=== PATIENT | male | born 1945 | race Caucasian/White ===

== ENCOUNTER 2019-03-03 15:47 | Inpatient (IN) | payer MEDICARE, OTHER ==
[2019-03-03] MEDS ORDERED: Sodium Chloride 0.9% 10 ML Syringe FLUSH PRN (16:59)
[2019-03-03] MEDS ORDERED: Furosemide 40 MG/4 ML VIAL IVPUSH ONE (16:59)
--- NOTE | 2019-03-03 17:01 | EDM.PDOC ---
ED HPI GENERAL MEDICAL PROBLEM - General Chief Complaint: Respiratory Problem Stated Complaint: SOB Time Seen by Provider: 03/03/19 16:55 Source of Information: Reports: Patient History Limitations: Reports: No Limitations - History of Present Illness INITIAL COMMENTS - FREE TEXT/NARRATIVE: 73-year-old male presents to the ED with gradually worsening dyspnea over a period of about a week. He was up all night last night sitting up due to orthopnea. He does have a cough but states he's not bringing up much phlegm. Denies any hemoptysis. Appetite is poor. States his bowels are working okay. States he is voiding frequently. His med list does not include any diuretics. She does chronic atrial fib and is on Xarelto and bruises very easily. He states he can lie down didn't orthopnea. Patient has COPD and is on oxygen usually 2-2.5 L at all times. He thinks he said fluid buildup around his lungs before. Legs of become very swollen and painful over the last week. Case they' re weeping in certain places on his legs. He reports that he's had the chills last night. He didn't know that he has a fever. Onset: Gradual Onset Date: 02/24/19 Duration: Day(s): (Veronica worsening dyspnea over the last week as well is gradually worsening edema in his lower extremities.), Constant, Getting Worse Location: Reports: Chest (Increased shortness of breath on minimal exertion.), Lower Extremity, Left (Creasing redness dorsal left foot with increased pain. He 's been wearing slip on shoes. She can barely walk.), Lower Extremity, Right ( [place] and pain both lower extremities) Quality: Reports: Other (Severe dyspnea on minimal exertion. Orthopnea.) Severity: Severe Improves with: Reports: Rest Worsens with: Reports: Other, Movement (Short of breath even at rest.) Context: Denies: Activity, Exercise (Any movement or walking makes things much worse.), Lifting, Sick Contact, Trauma, Other Associated Symptoms: Reports: Cough, Loss of Appetite, Malaise, Shortness of Breath, Weakness. 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: Reports: Other (see below) - Related Data Allergies Allergy/AdvReac Type Severity Reaction Status Date / Time diclofenac Allergy Cannot Verified 03/03/19 16:11 Remember lovastatin Allergy Cannot Verified 03/03/19 16:11 Remember potassium Allergy Cannot Verified 03/03/19 16:11 Remember tramadol Allergy Cannot Verified 03/03/19 16:11 Remember Home Meds: Home Meds Acetaminophen [Mapap] 1,000 mg PO TID PRN 03/03/19 [History] Acetaminophen [Tylenol Extra Strength] 500 mg PO TID 03/03/19 [History] Ipratropium/Albuterol Sulfate [Iprat-Albut 0.5-3(2.5) mg/3 ml] 3 ml IH Q6H PRN 03/03/19 [History] Levothyroxine 25 mcg PO ACBREAKFAST 03/03/19 [History] Melatonin 6 mg PO DAILY 03/03/19 [History] Metoprolol Tartrate 12.5 mg PO BID 03/03/19 [History] Nicotine [Nicotine Patch] 1 each TD Q72H 03/03/19 [History] Rivaroxaban [Xarelto] 20 mg PO DAILY 03/03/19 [History] Sennosides [Senna] 8.6 mg PO BID 03/03/19 [History] Triamcinolone Acetonide [Triamcinolone Acetonide 0.1% Crm] 1 applic TOP DAILY [History] Past Medical History Cardiovascular History: Reports: Heart Failure, Hypertension Respiratory History: Reports: COPD Endocrine/Metabolic History: Reports: Diabetes, Type II Social & Family History - Living Situation & Occupation Living situation: Reports: Occupation: Retired ED [employer] - Review of Systems Review Of Systems: See Below Constitutional: Reports: Chills, Malaise, Weakness, Fatigue, Decreased Appetite , Weight Loss HEENT: Reports: Glasses, Hearing Loss Respiratory: Reports: Shortness of Breath, Cough. Denies: Pleuritic Chest Pain , Sputum, Hemoptysis (Nonproductive) Cardiovascular: Reports: Blood Pressure Problem, Dyspnea on Exertion ( States areas of opened up and her losing.), Edema (Severe in getting worse in his lower extremities the last week or so.), Lightheadedness, Orthopnea. Denies: Chest Pain, Claudication (Mild hypertension) Endocrine: Reports: Fatigue ( chronically but much worse the last week. ), High Glucose (He is a type II diabetic and is on medication for diabetes.) GI/Abdominal: Reports: Decreased Appetite. Denies: Abdominal Pain, Difficulty Swallowing, Hematemesis, Hematochezia, Melena, Stool Incontinence, Vomiting, Other : Reports: Frequency, Incontinence Musculoskeletal: Reports: Back Pain, Joint Pain (Knees hips neck and shoulders.) Skin: Reports: Bruising (Bruises easily and has multiple bruises on both hands and extremities particularly his upper extremities. 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 He states his skin is peeling off of both of his legs as well since his feet have been so swollen) Neurological: Reports: No Symptoms Psychiatric: Reports: No Symptoms Hematologic/Lymphatic: Reports: No Symptoms Immunologic: Reports: No Symptoms ED EXAM, GENERAL - Physical Exam Exam: See Below Exam Limited By: Respiratory Distress (Moderate inspiratory distress.) General Appearance: Alert, Moderate Distress, Other (Vitals showed temperature 37.2 but he feels much warmer than this. Pulse is 90 and irregular compatible with atrial fibrillation respiratory dystonia 9-34 per minute. Sats are 78% on room air and 87-90% on 4 L. EP is 153/70 but came down to 146/89.) Eye Exam: Bilateral Eye: Normal Inspection (Slight pallor of the bronchial margins.) Throat/Mouth: Normal Inspection, Normal Oropharynx, Other. No: Normal Teeth Head: Atraumatic, Normocephalic Neck: Normal Inspection (Tongue is mildly dry.), Supple, Limited Range of Motion , Other. No: Non-Tender, Full Range of Motion, Carotid Bruit, Lymphadenopathy ( L), Lymphadenopathy (R) Respiratory/Chest: Respiratory Distress (Marked tachypnea at rest.), Decreased Breath Sounds (Both bases and in the lower 20% of lung sawant bilaterally), Rales, Accessory Muscle Use. No: Lungs Clear, Normal Breath Sounds ( decreased breath sounds in the lower 20% of lung sawant bilaterally.), Chest Non-Tender Cardiovascular: No Gallop, No JVD, No Murmur, No Rub, Irregularly Irregular. No : Normal Peripheral Pulses (Mild accessory muscle use.), Regular Rate, Rhythm, No Edema (Heart rate is irregularly irregular component with a defibrillation.) Peripheral Pulses: 0: Posterior Tibial (L) (No pulses are palpable in his lower extremities due to severe edema up to the knees bilaterally.), Posterior Tibial (R), Dorsalis Pedis (L), Dorsalis Pedis (R) GI/Abdominal: No Organomegaly, Distended (Stented and tympanitic in the upper abdomen compatible with aerophagia.), Abnormal Bowel Sounds (Bowel sounds are hyperactive in all 4 quadrants). No: Guarding, Rigid, Rebound, Tender (Male) Exam: Other (Size male. There is no significant swelling of the penis or scrotum. Does have intertrigo in the inguinal folds bilaterally due to candidiasis worse on the left as compared to the right.) Back Exam: Other (Mild kyphosis thoracic spine.). No: CVA Tenderness (L), CVA Tenderness (R) Extremities: Pedal Edema (4+ pitting edema bilaterally.), Joint Swelling (Mild fluid in the knee.), Other (Marked erythema of the right anterior fiore and dorsal foot worse on the left side as compared to the right. Both are very tender to touch. Appears to have an active cellulitis developing in the left dorsal foot.). No: Normal Range of Motion, Non-Tender Neurological: Alert, Oriented, CN II-XII Intact, Normal Cognition. No: Normal Gait Psychiatric: Other Skin Exam: Warm (He is very short of breath.), Dry, Normal Color, Other ( Eczematous rash both upper shoulders. Peeling skin from the upper right lateral thigh and both legs.) EKG INTERPRETATION EKG Date: 03/03/19 Time: 17:02 Rhythm: A-Fib (With rate of 56-1 10/m) Rate (Beats/Min): 76 [place]: RAD-Right [place] Deviation (237.) P-Wave: Present QRS: Other (Mildly decreased voltage limb and precordial leads. Sitter right ventricular hypertrophy pattern with delayed R-wave progression.) ST-T: Other (Nonspecific T-wave flattening in aVL) QT: Normal EKG Interpretation Comments: Abnormal ECG Course - Vital Signs Last Recorded V/S: Last Vital Signs Temp 36.9 C 03/03/19 17:10 Pulse 90 03/03/19 16:06 Resp 29 H 03/03/19 16:06 BP 153/70 H 03/03/19 16:06 Pulse Ox 78 L 03/03/19 16:06 - Orders/Labs/Meds Orders: Active Orders 24 hr Category Date Time Status Antiembolic Devices [RC] PER UNIT ROUTINE Care 03/03/19 19:06 Active Blood Glucose Check, Bedside [RC] ONETIME Care 03/03/19 16:57 Active Blood Glucose Check, Bedside [RC] QIDACANDBED Care 03/03/19 19:10 Active EKG Documentation Completion [RC] STAT Care 03/03/19 16:56 Active Height and Weight [RC] DAILY Care 03/03/19 19:04 Active Intake and Output [RC] QSHIFT Care 03/03/19 19:05 Active Oxygen Therapy [RC] ASDIRECTED Care 03/03/19 16:57 Active Oxygen Therapy [RC] PRN Care 03/03/19 19:05 Active Peripheral IV Care [RC] . DIRECTED Care 03/03/19 16:59 Active RT Aerosol Therapy [RC] ASDIRECTED Care 03/03/19 19:06 Active Up ad Iris [RC] ASDIRECTED Care 03/03/19 19:04 Active VTE/DVT Education [RC] PER UNIT ROUTINE Care 03/03/19 19:05 Active Vital Signs [RC] Q4H Care 03/03/19 19:05 Active Consult to Case Management/Sales Communications Manager [CONS] Cons 03/03/19 19:04 Active Routine Consult to Spiritual Care [CONS] Routine Cons 03/03/19 19:04 Active OT Evaluation and Treatment [CONS] Routine Cons 03/03/19 19:04 Active PT Evaluation and Treatment [CONS] Routine Cons 03/03/19 19:04 Active Respiratory Care Assess and Treatment [CONS] Routine Cons 03/03/19 19:04 Active 2 Gram Sodium Diet [DIET] Diet 03/03/19 Dinner Active Consistent Carbohydrate Diet [DIET] Diet 03/03/19 Dinner Active Fluid Restriction [DIET] Diet 03/04/19 Breakfast Active Heart Healthy Diet [DIET] Diet 03/03/19 Dinner Active Chest 1V Frontal [CR] Stat Exams 03/03/19 16:56 Taken Echo Comp wo Cont [US] Routine Exams 03/04/19 07:00 Ordered BASIC METABOLIC PANEL,BMP [CHEM] AM Lab 03/04/19 05:11 Ordered BASIC METABOLIC PANEL,BMP [CHEM] AM Lab 03/05/19 05:11 Ordered BASIC METABOLIC PANEL,BMP [CHEM] AM Lab 03/06/19 05:11 Ordered BASIC METABOLIC PANEL,BMP [CHEM] AM Lab 03/07/19 05:11 Ordered BASIC METABOLIC PANEL,BMP [CHEM] AM Lab 03/08/19 05:11 Ordered C-REACTIVE PROTEIN [CHEM] AM Lab 03/04/19 05:11 Ordered CBC WITH AUTO DIFF [HEME] AM Lab 03/04/19 05:11 Ordered CBC WITH AUTO DIFF [HEME] AM Lab 03/05/19 05:11 Ordered CBC WITH AUTO DIFF [HEME] AM Lab 03/06/19 05:11 Ordered CBC WITH AUTO DIFF [HEME] AM Lab 03/07/19 05:11 Ordered CBC WITH AUTO DIFF [HEME] AM Lab 03/08/19 05:11 Ordered CULTURE BLOOD [BC] Stat Lab 03/03/19 16:57 Ordered CULTURE BLOOD [BC] Stat Lab 03/03/19 18:17 Received MAGNESIUM [CHEM] AM Lab 03/04/19 05:11 Ordered MAGNESIUM [CHEM] AM Lab 03/05/19 05:11 Ordered MAGNESIUM [CHEM] AM Lab 03/06/19 05:11 Ordered MAGNESIUM [CHEM] AM Lab 03/07/19 05:11 Ordered MAGNESIUM [CHEM] AM Lab 03/08/19 05:11 Ordered Acetaminophen Med 03/03/19 19:09 Pending 1,000 mg PO TID PRN Acetaminophen [Tylenol] Med 03/03/19 21:00 Active 650 mg PO TID Acetaminophen/HYDROcodone [[place] 325-5 MG] Med 03/03/19 19:04 Active 1 tab PO Q4H PRN Albuterol/Ipratropium [DuoNeb 3.0-0.5 MG/3 ML] Med 03/03/19 19:04 Ordered 3 ml NEB Q4H PRN Albuterol/Ipratropium [DuoNeb 3.0-0.5 MG/3 ML] Med 03/03/19 19:09 Active 3 ml NEB Q6H PRN Bisacodyl [Dulcolax] Med 03/03/19 19:04 Active 5 mg PO DAILY PRN Dextrose 50% in Water Med 03/03/19 19:10 Active 50 ml IVPUSH ASDIRECTED PRN Docusate Sodium [Colace] Med 03/03/19 19:04 Active 100 mg PO BID PRN Docusate Sodium/Sennosides [Senna Plus] Med 03/03/19 19:04 Active 1 tab PO BID PRN HYDROmorphone [Dilaudid] Med 03/03/19 19:04 Active 0.5 mg IVPUSH Q2H PRN Insulin Lispro [HumaLOG] Med 03/03/19 19:10 Active See Protocol SUBCUT QIDACANDBED PRN LORazepam [Ativan] Med 03/03/19 19:04 Active 0.25 mg IV Q6H PRN Levothyroxine Med 03/04/19 06:00 Active 25 mcg PO ACBREAKFAST Melatonin Med 03/04/19 09:00 Pending 6 mg PO DAILY Metoprolol Tartrate [Lopressor] Med 03/03/19 21:00 Active 12.5 mg PO BID Nicotine [Habitrol] Med 03/03/19 19:15 Pending DOSE mg TRDERM Q72H Ondansetron [Zofran] Med 03/03/19 19:04 Active 4 mg IV Q6H PRN Pantoprazole [ProTONIX IV] Med 03/03/19 21:00 Active 40 mg IV Q12HR Promethazine [Phenergan] 6.25 mg Med 03/03/19 19:04 Active Sodium Chloride 0.9% [Normal Saline] 50 ml IV Q6H Rivaroxaban [Xarelto] Med 03/04/19 09:00 Active 20 mg PO DAILY Sennosides [Senna] Med 03/03/19 21:00 Active 8.6 mg PO BID Sodium Chloride 0.9% [Saline Flush] Med 03/03/19 16:59 Active 10 ml FLUSH ASDIRECTED PRN Triamcinolone Acetonide [Triamcinolone Acetonide 0.1% Med 03/04/19 09:00 Active Crm] 0 gm TOP DAILY Zolpidem [Ambien] Med 03/03/19 19:04 Active 5 mg PO BEDTIME PRN Antiembolic Hose [OM.PC] Per Unit Routine Oth 03/03/19 19:05 Ordered Blood Culture x2 Reflex Set [OM.PC] Stat Oth 03/03/19 16:57 Ordered Peripheral IV Insertion Adult [OM.PC] Stat Oth 03/03/19 16:59 Ordered Sequential Compression Device [OM.PC] Per Unit Routine Oth 03/03/19 19:05 Ordered Medication Orders Acetaminophen (Tylenol) 650 mg PO TID [facility] Hydrocodone Bitart/Acetaminophen ([place] 325-5 Mg) 1 tab PO Q4H PRN PRN Reason: Pain (moderate 4-6) Albuterol/Ipratropium (Duoneb 3.0-0.5 Mg/3 Ml) 3 ml NEB Q4H PRN PRN Reason: Shortness Of Breath/wheezing Albuterol/Ipratropium (Duoneb 3.0-0.5 Mg/3 Ml) 3 ml NEB Q6H PRN PRN Reason: Dyspnea Bisacodyl (Dulcolax) 5 mg PO DAILY PRN PRN Reason: Constipation Dextrose/Water (Dextrose 50% In Water) 50 ml IVPUSH ASDIRECTED PRN PRN Reason: Hypoglycemia Docusate Sodium (Colace) 100 mg PO BID PRN PRN Reason: Constipation Hydromorphone HCl (Dilaudid) 0.5 mg IVPUSH Q2H PRN PRN Reason: Pain (severe 7-10) Promethazine HCl 6.25 mg/ (Sodium Chloride) 50.25 mls @ 100 mls/hr IV Q6H PRN PRN Reason: Nausea/Vomiting Insulin Human Lispro (Humalog) 0 unit SUBCUT QIDACANDBED PRN; Protocol PRN Reason: Hyperglycemia Levothyroxine Sodium (Levothyroxine) 25 mcg PO ACBREAKFAST [facility] Lorazepam (Ativan) 0.25 mg IV Q6H PRN PRN Reason: Anxiety Melatonin (Melatonin) 6 mg PO DAILY [facility] Metoprolol Tartrate (Lopressor) 12.5 mg PO BID [facility] Nicotine (Habitrol) mg TRDERM Q72H [facility] Non-Formulary Medication (Acetaminophen) 1,000 mg PO TID PRN PRN Reason: Pain Ondansetron HCl (Zofran) 4 mg IV Q6H PRN PRN Reason: Nausea/Vomiting Pantoprazole Sodium (Protonix Iv) 40 mg IV Q12HR [facility] Rivaroxaban (Xarelto) 20 mg PO DAILY [facility] Senna (Senna) 8.6 mg PO BID [facility] Senna/Docusate Sodium (Senna Plus) 1 tab PO BID PRN PRN Reason: Constipation Sodium Chloride (Saline Flush) 10 ml FLUSH ASDIRECTED PRN PRN Reason: Keep Vein Open Last Admin: 03/03/19 17:04 Dose: 10 ml Triamcinolone Acetonide (Triamcinolone Acetonide 0.1% Crm) 0 gm TOP DAILY JOANNA Zolpidem Tartrate (Ambien) 5 mg PO BEDTIME PRN PRN Reason: Sleep Labs: Laboratory Tests 03/03/19 03/03/19 03/03/19 Range/Units 16:25 16:25 16:25 WBC 8.33 (4.23-9.07) K/mm3 RBC 2.99 L (4.63-6.08) M/mm3 Hgb 8.0 L (13.7-17.5) gm/L Hct 27.5 L (40.1-51.0) % MCV 92.0 (79.0-92.2) fl MCH 26.8 (25.7-32.2) pg MCHC 29.1 L (32.2-35.5) g/dl RDW Std Deviation 57.0 H (35.1-43.9) fL Plt Count 292 (163-337) K/mm3 MPV 9.3 L (9.4-12.3) fl Neutrophils % (Manual) 60 (40-60) % Band Neutrophils % 0 (0-10) % Lymphocytes % (Manual) 27 (20-40) % Atypical Lymphs % 0 % Monocytes % (Manual) 11 H (2-10) % Eosinophils % (Manual) 1 (0.8-7.0) % Basophils % (Manual) 1 (0.2-1.2) Platelet Estimate Adequate RBC Morph Comment Normal PT 11.9 (9.7-12.0) SECONDS INR 1.10 APTT 35 H (22-31) SECONDS Puncture Site ABG pH (7.35-7.45) ABG pCO2 (35.0-45.0) mmHg ABG pO2 (80.0-100.0) mmHg ABG HCO3 (22.0-26.0) meq/L ABG O2 Saturation (96.0-97.0) % ABG Base Excess (-2-2.0) Gibran Test A-a Gradient mmHg O2 Delivery Device Oxygen Flow Rate FiO2 (21.00-100.00) % Sodium 139 (136-145) mEq/L Potassium 4.4 (3.5-5.1) mEq/L Chloride 101 (98-107) mEq/L Carbon Dioxide 30 (21-32) mEq/L Anion Gap 12.4 (5-15) BUN 20 H (7-18) mg/dL Creatinine 1.0 (0.7-1.3) mg/dL Est Cr Clr Drug Dosing 70.06 mL/min Estimated GFR (MDRD) > 60 (>60) mL/min BUN/Creatinine Ratio 20.0 H (14-18) Glucose 119 H (83-115) mg/dL POC Glucose (83-110) mg/dL Calcium 8.8 (8.5-10.1) mg/dL Magnesium 1.6 L (1.8-2.4) mg/dl Total Bilirubin 0.7 (0.2-1.0) mg/dL AST 21 (15-37) U/L ALT 36 (16-63) U/L Alkaline Phosphatase 139 H (46-116) U/L CK-MB (CK-2) 1.7 (0-3.6) ng/ml Troponin I < 0.017 (0.00-0.056) ng/mL C-Reactive Protein 5.3 H* (<1.0) mg/dL NT-Pro-B Natriuret Pep (0-450) pg/mL Total Protein 7.5 (6.4-8.2) g/dl Albumin 2.6 L (3.4-5.0) g/dl Globulin 4.9 gm/dL Albumin/Globulin Ratio 0.5 L (1-2) 03/03/19 03/03/19 03/03/19 Range/Units 16:25 17:16 17:33 WBC (4.23-9.07) K/mm3 RBC (4.63-6.08) M/mm3 Hgb (13.7-17.5) gm/L Hct (40.1-51.0) % MCV (79.0-92.2) fl MCH (25.7-32.2) pg MCHC (32.2-35.5) g/dl RDW Std Deviation (35.1-43.9) fL Plt Count (163-337) K/mm3 MPV (9.4-12.3) fl Neutrophils % (Manual) (40-60) % Band Neutrophils % (0-10) % Lymphocytes % (Manual) (20-40) % Atypical Lymphs % % Monocytes % (Manual) (2-10) % Eosinophils % (Manual) (0.8-7.0) % Basophils % (Manual) (0.2-1.2) Platelet Estimate RBC Morph Comment PT (9.7-12.0) SECONDS INR APTT (22-31) SECONDS Puncture Site Rt radial ABG pH 7.43 (7.35-7.45) ABG pCO2 41.8 (35.0-45.0) mmHg ABG pO2 58.0 L (80.0-100.0) mmHg ABG HCO3 27.2 H (22.0-26.0) meq/L ABG O2 Saturation 90.8 L (96.0-97.0) % ABG Base Excess 3.1 H (-2-2.0) Gibran Test Positive A-a Gradient 133 mmHg O2 Delivery Device Nasal cannula Oxygen Flow Rate 3.5 FiO2 34.00 (21.00-100.00) % Sodium (136-145) mEq/L Potassium (3.5-5.1) mEq/L Chloride (98-107) mEq/L Carbon Dioxide (21-32) mEq/L Anion Gap (5-15) BUN (7-18) mg/dL Creatinine (0.7-1.3) mg/dL Est Cr Clr Drug Dosing mL/min Estimated GFR (MDRD) (>60) mL/min BUN/Creatinine Ratio (14-18) Glucose (83-115) mg/dL POC Glucose 131 H (83-110) mg/dL Calcium (8.5-10.1) mg/dL Magnesium (1.8-2.4) mg/dl Total Bilirubin (0.2-1.0) mg/dL AST (15-37) U/L ALT (16-63) U/L Alkaline Phosphatase (46-116) U/L CK-MB (CK-2) (0-3.6) ng/ml Troponin I (0.00-0.056) ng/mL C-Reactive Protein (<1.0) mg/dL NT-Pro-B Natriuret Pep 8345 H (0-450) pg/mL Total Protein (6.4-8.2) g/dl Albumin (3.4-5.0) g/dl Globulin gm/dL Albumin/Globulin Ratio (1-2) Meds: Medications Generic Name Dose Route Start Last Admin Trade Name Freq PRN Reason Stop Dose Admin Acetaminophen 650 mg 03/03/19 21:00 Tylenol PO TID JOANNA Hydrocodone Bitart/Acetaminophen 1 tab 03/03/19 19:04 [place] 325-5 Mg PO Q4H PRN Pain (moderate 4-6) Albuterol/Ipratropium 3 ml 03/03/19 19:04 Duoneb 3.0-0.5 Mg/3 Ml NEB Q4H PRN Shortness Of Breath/wheezing Albuterol/Ipratropium 3 ml 03/03/19 19:09 Duoneb 3.0-0.5 Mg/3 Ml NEB Q6H PRN Dyspnea Bisacodyl 5 mg 03/03/19 19:04 Dulcolax PO DAILY PRN Constipation Dextrose/Water 50 ml 03/03/19 19:10 Dextrose 50% In Water IVPUSH ASDIRECTED PRN Hypoglycemia Docusate Sodium 100 mg 03/03/19 19:04 Colace PO BID PRN Constipation Hydromorphone HCl 0.5 mg 03/03/19 19:04 Dilaudid IVPUSH Q2H PRN Pain (severe 7-10) Promethazine HCl 6.25 mg/ 50.25 mls @ 100 mls/hr 03/03/19 19:04 Sodium Chloride IV Q6H PRN Nausea/Vomiting Insulin Human Lispro 0 unit 03/03/19 19:10 Humalog SUBCUT QIDACANDBED PRN Hyperglycemia Protocol Levothyroxine Sodium 25 mcg 03/04/19 06:00 Levothyroxine PO ACBREAKFAST JOANNA Lorazepam 0.25 mg 03/03/19 19:04 Ativan IV Q6H PRN Anxiety Melatonin 6 mg 03/04/19 09:00 Melatonin PO DAILY JOANNA Metoprolol Tartrate 12.5 mg 03/03/19 21:00 Lopressor PO BID JOANNA Nicotine mg 03/03/19 19:15 Habitrol TRDERM Q72H JOANNA Non-Formulary Medication 1,000 mg 03/03/19 19:09 Acetaminophen PO TID PRN Pain Ondansetron HCl 4 mg 03/03/19 19:04 Zofran IV Q6H PRN Nausea/Vomiting Pantoprazole Sodium 40 mg 03/03/19 21:00 Protonix Iv IV Q12HR [facility] Rivaroxaban 20 mg 03/04/19 09:00 Xarelto PO DAILY [facility] Senna 8.6 mg 03/03/19 21:00 Senna PO BID [facility] Senna/Docusate Sodium 1 tab 03/03/19 19:04 Senna Plus PO BID PRN Constipation Sodium Chloride 10 ml 03/03/19 16:59 03/03/19 17:04 Saline Flush FLUSH 10 ml ASDIRECTED PRN Administration Keep Vein Open Triamcinolone Acetonide 0 gm 03/04/19 09:00 Triamcinolone Acetonide 0.1% Crm TOP DAILY [facility] Zolpidem Tartrate 5 mg 03/03/19 19:04 Ambien PO BEDTIME PRN Sleep Discontinued Medications Generic Name Dose Route Start Last Admin Trade Name Freq PRN Reason Stop Dose Admin Acetaminophen 650 mg 03/03/19 17:03 03/03/19 17:10 Tylenol PO 03/03/19 17:04 650 mg ONETIME ONE Administration Furosemide 60 mg 03/03/19 16:59 03/03/19 17:04 Lasix IVPUSH 03/03/19 17:00 60 mg NOW ONE Administration Ceftriaxone Sodium 2 gm/ 100 mls @ 200 mls/hr 03/03/19 18:14 03/03/19 18:25 Sodium Chloride IV 03/03/19 18:43 Not Given ONETIME ONE Ceftriaxone Sodium 2 gm/ 100 mls @ 200 mls/hr 03/03/19 18:24 03/03/19 18:56 Sodium Chloride IV 03/03/19 18:53 200 mls/hr ONETIME ONE Administration - Radiology Interpretation Free Text/Narrative:: 73-year-old male presents to the ED with acute exacerbation of congestive heart failure and COPD. Patient states he's had fluid around his lungs in the past but his med list does not include any diuretics. He has marked edema both lower extremities up to the knees bilaterally with breakdown of the skin in several areas with slight oozing of serous fluid. Appears to be an early cellulitis developing dorsal aspect of the left foot. It is very tender to touch. Clinically he has rales in both lung sawant. 2 sets only 78% on room air. He's placed on 4 L/m by nasal cannula until blood gases can be obtained. Sats only 87 % on 4 L. He is normally on 2-2-1/2 L at home at all times. Plan routine labs including blood cultures 2 as he does clinically have a fever. ABGs will be done and they will assess need for oxygen treatment. Will be given Lasix 60 mg IV at this time. - Re-Assessments/Exams Free Text/Narrative Re-Assessment/Exam: 03/03/19 18:01 chest x-ray reveals marked cardiomegaly. There appears to be a component of pulmonary fibrosis diffusely as well as diffuse vascular congestion with small pleural effusion on the right side. 03/03/19 18:04 White count is normal at 8.33. Differential shows 60% neutrophils with no bands. Hemoglobin is low at 8.0 with hematocrit of 27.5. MCV is 92.0. Piedad count 292,000. PT is 11.9 with an INR of 1.10. PTT is 35. Blood gases show pH of 7.43 PCO2 is 41.8. PO2 is 58.0 and bicarbonate is 27.2. Saturation is 90.8% and this is done on 3.5 L by nasal cannula. Chemistry shows a sodium of 139 with a potassium of 4.4. Chloride is 101 with a bicarbonate of 30. Anion gap is 12.4. BUN is 20 with a creatinine of 1.0. GFR is greater than 60. BUN/creatinine ratio is 20.0 mildly elevated glucose 119. Calcium is 8.8 with magnesium slightly low at 1.6. Liver function is normal other than alk phosphatase slightly elevated at 139. CK-MB fraction is 1.7 troponin I is less than 0.017. C-reactive protein is 5.3 BNP is 8345. Total protein is 7.5 with an albumin fraction low at 2.6. His oxygen will be increased to 5 L/m by nasal cannula. Will discuss case with Dr. Avendano restoration [employer] hospitalist with a view to admission to the hospital. 03/03/19: 18:20: I did speak with Dr. Avendano and he is accepted care of this patient. He will be admitted to the med surgery floor on telemetry. Departure - Departure Time of Disposition: 19:43 Disposition: Admitted As Inpatient 64 Condition: Serious Clinical Impression: Hypoxia, Chronic atrial fibrillation Respiratory failure with hypoxia and hypercapnia Qualifiers: Chronicity: acute on chronic Qualified Code(s): J96.21 - Acute and chronic respiratory failure with hypoxia; J96.22 - Acute and chronic respiratory failure with hypercapnia Acute exacerbation of CHF (congestive heart failure) Qualifiers: Heart failure type: right-sided Qualified Code(s): I50.813 - Acute on chronic right heart failure Anemia Qualifiers: Anemia type: unspecified type Qualified Code(s): D64.9 - Anemia, unspecified - Discharge Information *PRESCRIPTION DRUG MONITORING PROGRAM REVIEWED*: Not Applicable *COPY OF PRESCRIPTION DRUG MONITORING REPORT IN PATIENT TAHIR: Not Applicable Referrals: Logan Box MD [Primary Care Provider] - Forms: ED Department Discharge - My Orders Last 24 Hours: My Active Orders 03/03/19 16:56 EKG Documentation Completion [RC] STAT Chest 1V Frontal [CR] Stat 03/03/19 16:57 Blood Glucose Check, Bedside [RC] ONETIME Oxygen Therapy [RC] ASDIRECTED CULTURE BLOOD [BC] Stat Blood Culture x2 Reflex Set [OM.PC] Stat 03/03/19 16:59 Peripheral IV Care [RC] . DIRECTED Sodium Chloride 0.9% [Saline Flush] 10 ml FLUSH ASDIRECTED PRN Peripheral IV Insertion Adult [OM.PC] Stat 03/03/19 18:17 CULTURE BLOOD [BC] Stat - Assessment/Plan Last 24 Hours: My Active Orders 03/03/19 16:56 EKG Documentation Completion [RC] STAT Chest 1V Frontal [CR] Stat 03/03/19 16:57 Blood Glucose Check, Bedside [RC] ONETIME Oxygen Therapy [RC] ASDIRECTED CULTURE BLOOD [BC] Stat Blood Culture x2 Reflex Set [OM.PC] Stat 03/03/19 16:59 Peripheral IV Care [RC] . DIRECTED Sodium Chloride 0.9% [Saline Flush] 10 ml FLUSH ASDIRECTED PRN Peripheral IV Insertion Adult [OM.PC] Stat 03/03/19 18:17 CULTURE BLOOD [BC] Stat
[2019-03-03] MEDS ORDERED: Acetaminophen 325 MG Tab PO ONE (17:03)
[2019-03-03] MEDS ORDERED: cefTRIAXone 2 GM in Sodium Chloride 0.9% 100 ML IV ONE ×2 (18:14→18:24)
[2019-03-03] MEDS ORDERED: HYDROmorphone 0.5 MG/0.5 ML Syringe IVPUSH PRN (19:04)
[2019-03-03] MEDS ORDERED: Ondansetron 4 MG/2 ML SDV IV PRN (19:04)
[2019-03-03] MEDS ORDERED: Promethazine 6.25 MG in Sodium Chloride 0.9% 50 ML IV PRN (19:04)
[2019-03-03] MEDS ORDERED: Zolpidem 5 MG Tab PO PRN (19:04)
[2019-03-03] MEDS ORDERED: Bisacodyl 5 MG Tab PO PRN (19:04)
[2019-03-03] MEDS ORDERED: Docusate Sodium 100 MG Cap PO PRN (19:04)
--- NOTE | 2019-03-03 19:04 | PCM.HP.2 ---
H&P History of Present Illness - General Date of Service: 03/03/19 Source of Information: Patient, Old Records, Provider, RN Notes Reviewed, Significant Other History Limitations: Reports: Physical Impairment - Related Data Allergies/Adverse Reactions: Allergies Allergy/AdvReac Type Severity Reaction Status Date / Time diclofenac Allergy Cannot Verified 03/03/19 16:11 Remember lovastatin Allergy Cannot Verified 03/03/19 16:11 Remember potassium Allergy Cannot Verified 03/03/19 16:11 Remember tramadol Allergy Cannot Verified 03/03/19 16:11 Remember Home Medications: Home Meds Acetaminophen [Mapap] 1,000 mg PO TID PRN 03/03/19 [History] Acetaminophen [Tylenol Extra Strength] 500 mg PO TID 03/03/19 [History] Ipratropium/Albuterol Sulfate [Iprat-Albut 0.5-3(2.5) mg/3 ml] 3 ml IH Q6H PRN 03/03/19 [History] Levothyroxine 25 mcg PO ACBREAKFAST 03/03/19 [History] Melatonin 6 mg PO DAILY 03/03/19 [History] Metoprolol Tartrate 12.5 mg PO BID 03/03/19 [History] Nicotine [Nicotine Patch] 1 each TD Q72H 03/03/19 [History] Rivaroxaban [Xarelto] 20 mg PO DAILY 03/03/19 [History] Sennosides [Senna] 8.6 mg PO BID 03/03/19 [History] Triamcinolone Acetonide [Triamcinolone Acetonide 0.1% Crm] 1 applic TOP DAILY [History] Past Medical History Cardiovascular History: Reports: Heart Failure, Hypertension Respiratory History: Reports: COPD Endocrine/Metabolic History: Reports: Diabetes, Type II Social & Family History - Tobacco Use Smoking Status *Q: Former Smoker Used Tobacco, but Quit: Yes Month/Year Tobacco Last Used: 2009 - Caffeine Use Caffeine Use: Reports: Coffee - Recreational Drug Use Recreational Drug Use: No - Living Situation & Occupation Living situation: Reports: Occupation: Retired H&P Review of Systems - Review of Systems: Review Of Systems: ROS reveals no pertinent complaints other than HPI. Exam - Exam Exam: See Below - Vital Signs Vital Signs: Last Vital Signs Temp 36.9 C 03/03/19 17:10 Pulse 90 03/03/19 16:06 Resp 29 H 03/03/19 16:06 BP 153/70 H 03/03/19 16:06 Pulse Ox 78 L 03/03/19 16:06 Weight: 83.915 kg - Patient Data Lab Results Last 24 hrs: Laboratory Results - last 24 hr 03/03/19 03/03/19 03/03/19 Range/Units 16:25 16:25 16:25 WBC 8.33 (4.23-9.07) K/mm3 RBC 2.99 L (4.63-6.08) M/mm3 Hgb 8.0 L (13.7-17.5) gm/L Hct 27.5 L (40.1-51.0) % MCV 92.0 (79.0-92.2) fl MCH 26.8 (25.7-32.2) pg MCHC 29.1 L (32.2-35.5) g/dl RDW Std Deviation 57.0 H (35.1-43.9) fL Plt Count 292 (163-337) K/mm3 MPV 9.3 L (9.4-12.3) fl Neutrophils % (Manual) 60 (40-60) % Band Neutrophils % 0 (0-10) % Lymphocytes % (Manual) 27 (20-40) % Atypical Lymphs % 0 % Monocytes % (Manual) 11 H (2-10) % Eosinophils % (Manual) 1 (0.8-7.0) % Basophils % (Manual) 1 (0.2-1.2) Platelet Estimate Adequate RBC Morph Comment Normal PT 11.9 (9.7-12.0) SECONDS INR 1.10 APTT 35 H (22-31) SECONDS Puncture Site ABG pH (7.35-7.45) ABG pCO2 (35.0-45.0) mmHg ABG pO2 (80.0-100.0) mmHg ABG HCO3 (22.0-26.0) meq/L ABG O2 Saturation (96.0-97.0) % ABG Base Excess (-2-2.0) Gibran Test A-a Gradient mmHg O2 Delivery Device Oxygen Flow Rate FiO2 (21.00-100.00) % Sodium 139 (136-145) mEq/L Potassium 4.4 (3.5-5.1) mEq/L Chloride 101 (98-107) mEq/L Carbon Dioxide 30 (21-32) mEq/L Anion Gap 12.4 (5-15) BUN 20 H (7-18) mg/dL Creatinine 1.0 (0.7-1.3) mg/dL Est Cr Clr Drug Dosing 70.06 mL/min Estimated GFR (MDRD) > 60 (>60) mL/min BUN/Creatinine Ratio 20.0 H (14-18) Glucose 119 H (83-115) mg/dL POC Glucose (83-110) mg/dL Calcium 8.8 (8.5-10.1) mg/dL Magnesium 1.6 L (1.8-2.4) mg/dl Total Bilirubin 0.7 (0.2-1.0) mg/dL AST 21 (15-37) U/L ALT 36 (16-63) U/L Alkaline Phosphatase 139 H (46-116) U/L CK-MB (CK-2) 1.7 (0-3.6) ng/ml Troponin I < 0.017 (0.00-0.056) ng/mL C-Reactive Protein 5.3 H* (<1.0) mg/dL NT-Pro-B Natriuret Pep (0-450) pg/mL Total Protein 7.5 (6.4-8.2) g/dl Albumin 2.6 L (3.4-5.0) g/dl Globulin 4.9 gm/dL Albumin/Globulin Ratio 0.5 L (1-2) 03/03/19 03/03/19 03/03/19 Range/Units 16:25 17:16 17:33 WBC (4.23-9.07) K/mm3 RBC (4.63-6.08) M/mm3 Hgb (13.7-17.5) gm/L Hct (40.1-51.0) % MCV (79.0-92.2) fl MCH (25.7-32.2) pg MCHC (32.2-35.5) g/dl RDW Std Deviation (35.1-43.9) fL Plt Count (163-337) K/mm3 MPV (9.4-12.3) fl Neutrophils % (Manual) (40-60) % Band Neutrophils % (0-10) % Lymphocytes % (Manual) (20-40) % Atypical Lymphs % % Monocytes % (Manual) (2-10) % Eosinophils % (Manual) (0.8-7.0) % Basophils % (Manual) (0.2-1.2) Platelet Estimate RBC Morph Comment PT (9.7-12.0) SECONDS INR APTT (22-31) SECONDS Puncture Site Rt radial ABG pH 7.43 (7.35-7.45) ABG pCO2 41.8 (35.0-45.0) mmHg ABG pO2 58.0 L (80.0-100.0) mmHg ABG HCO3 27.2 H (22.0-26.0) meq/L ABG O2 Saturation 90.8 L (96.0-97.0) % ABG Base Excess 3.1 H (-2-2.0) Gibran Test Positive A-a Gradient 133 mmHg O2 Delivery Device Nasal cannula Oxygen Flow Rate 3.5 FiO2 34.00 (21.00-100.00) % Sodium (136-145) mEq/L Potassium (3.5-5.1) mEq/L Chloride (98-107) mEq/L Carbon Dioxide (21-32) mEq/L Anion Gap (5-15) BUN (7-18) mg/dL Creatinine (0.7-1.3) mg/dL Est Cr Clr Drug Dosing mL/min Estimated GFR (MDRD) (>60) mL/min BUN/Creatinine Ratio (14-18) Glucose (83-115) mg/dL POC Glucose 131 H (83-110) mg/dL Calcium (8.5-10.1) mg/dL Magnesium (1.8-2.4) mg/dl Total Bilirubin (0.2-1.0) mg/dL AST (15-37) U/L ALT (16-63) U/L Alkaline Phosphatase (46-116) U/L CK-MB (CK-2) (0-3.6) ng/ml Troponin I (0.00-0.056) ng/mL C-Reactive Protein (<1.0) mg/dL NT-Pro-B Natriuret Pep 8345 H (0-450) pg/mL Total Protein (6.4-8.2) g/dl Albumin (3.4-5.0) g/dl Globulin gm/dL Albumin/Globulin Ratio (1-2) Result Diagrams: 03/03/19 16:25 03/03/19 16:25 Problem List Initiated/Reviewed/Updated: Yes Orders Last 24hrs: Active Orders 24 hr Category Date Time Status Blood Glucose Check, Bedside [RC] ONETIME Care 03/03/19 16:57 Active EKG Documentation Completion [RC] STAT Care 03/03/19 16:56 Active Oxygen Therapy [RC] ASDIRECTED Care 03/03/19 16:57 Active Peripheral IV Care [RC] . DIRECTED Care 03/03/19 16:59 Active Chest 1V Frontal [CR] Stat Exams 03/03/19 16:56 Taken CULTURE BLOOD [BC] Stat Lab 03/03/19 16:57 Ordered CULTURE BLOOD [BC] Stat Lab 03/03/19 18:17 Received Sodium Chloride 0.9% [Saline Flush] Med 03/03/19 16:59 Active 10 ml FLUSH ASDIRECTED PRN Blood Culture x2 Reflex Set [OM.PC] Stat Oth 03/03/19 16:57 Ordered Peripheral IV Insertion Adult [OM.PC] Stat Oth 03/03/19 16:59 Ordered Medication Orders Sodium Chloride (Saline Flush) 10 ml FLUSH ASDIRECTED PRN PRN Reason: Keep Vein Open Last Admin: 03/03/19 17:04 Dose: 10 ml
[2019-03-03] MEDS ORDERED: Albuterol/Ipratropium 3.0-0.5 MG/3 ML Neb Soln NEB PRN (19:09)
[2019-03-03] MEDS ORDERED: Non-Formulary Medication 1 Each (Acetaminophen 1,000 MG) PO PRN (19:09)
[2019-03-03] MEDS ORDERED: 50% Dextrose in Water 50 ML Syringe IVPUSH PRN (19:10)
[2019-03-03] MEDS ORDERED: Insulin Lispro 100 Units/ML 3 ML Vial SUBCUT PRN (19:10)
[2019-03-03] MEDS ORDERED: Sennosides 8.6 MG Tab PO SCH (21:00)
[2019-03-03] MEDS: Metoprolol Tartrate 25 MG Tab PO SCH (21:26)
[2019-03-03] MEDS: Acetaminophen 325 MG Tab PO SCH (21:27)
[2019-03-03] MEDS: Pantoprazole 40 MG Vial IV SCH (21:29)
[2019-03-03] MEDS ORDERED: Magnesium Sulfate/Water 2 GM in Premix Bag 1 BAG IV STA (22:59)
[2019-03-03] MEDS ORDERED: Sennosides 8.6 MG Tab PO PRN (23:09)
--- NOTE | 2019-03-03 23:46 | PCM.SN ---
- Free Text/Narrative Note: Patient briefly seen and examined at bedside. No improvement of dyspnea. Offered Morphine and plus NIPPV if he continues to get worse overnight, patient and family at bedside all agreed.
[2019-03-03] MEDS ORDERED: Furosemide 20 MG/2 ML VIAL IVPUSH ONE (23:54)
[2019-03-04] MEDS: Morphine 2 MG/ML Syringe IVPUSH PRN ×3 (00:13→16:02)
[2019-03-04] MEDS: LORazepam 2 MG/ML SDV IV PRN ×2 (01:19→20:01)
[2019-03-04] MEDS: Albuterol/Ipratropium 3.0-0.5 MG/3 ML Neb Soln NEB PRN ×3 (01:55→21:21)
[2019-03-04] MEDS: Levothyroxine 25 MCG Tab PO SCH (06:48)
[2019-03-04] MEDS: Insulin Lispro 100 Units/ML 3 ML Vial SUBCUT SCH ×5 (07:45→22:52)
--- NOTE | 2019-03-04 07:55 | PCM.HP.2 ---
H&P History of Present Illness - General Date of Service: 03/04/19 Admit Problem/Dx: Admission Diagnosis/Problem Admission Diagnosis/Problem Congestive heart failure Source of Information: Patient, Family, Old Records, Provider, RN Notes Reviewed , Significant Other History Limitations: Reports: Physical Impairment, Respiratory Distress - History of Present Illness Initial Comments - Free Text/Narative: This is a 73 yo elderly white male with past medical hx/o Chronic Hypoxic Respiratory Failure 2-3 L of NC, COPD, HF with Reduced EF 45-50%, Normocytic Anemia, Cardiomyopathy non PM Candidate, Chronic Atrial Fibrillation on Xarelto , CAD, DM2, Dysphagia, Urinary Retention, Chronic Encephalopathy, Hx/o Dermatitis, Hx/o Melanoma In Situ, and Hx/o Cardiogenic Shock 2/2 Bradycardia who comes in for worsening shortness of breath and difficulty breathing for over a week associated with wet cough, decreased appetite, malaise, generalized weakness, fatigue, chills, urinary frequency and leg edema. He states he was up all night 2 nights ago due to inability to lay flat. His symptoms is worse with activity and improves with rest. Patient was recently hospitalized in [place] and stayed there for over 80-90 days due to bacteremia and similar symptoms of respiratory issues per family member at bedside. His initial work up in ED showed a Hgb of 8.0, Hct of 27.5, MCHC of 29.1, RDW of 57 and Monocytes of 11%. His Chemistry was significant for BUN of 20, BS of 119, Mg of 1.6, Alk Phos of 139, CRP of 5.3, Pro BNP of 8345, and Albumin of 2.6. His UA was negative for UTI. Ar chest x-ray report read as severe pulmonary vascular congestion. Patient was admitted overnight for medical management of acute congestive heart failure. Back and shoulder Pain Score (Numeric/FACES): 3 - Related Data Allergies/Adverse Reactions: Allergies Allergy/AdvReac Type Severity Reaction Status Date / Time diclofenac Allergy Cannot Verified 03/03/19 16:11 Remember lovastatin Allergy Cannot Verified 03/03/19 16:11 Remember potassium Allergy Cannot Verified 03/03/19 16:11 Remember tramadol Allergy Cannot Verified 03/03/19 16:11 Remember Home Medications: Home Meds Acetaminophen [Mapap] 1,000 mg PO TID PRN 03/03/19 [History] Acetaminophen [Tylenol Extra Strength] 500 mg PO TID 03/03/19 [History] Albuterol/Ipratropium [Combivent Respimat] 4 gm IH QID 03/03/19 [History] Dorzolamide HCl/Pf [Dorzolamide 2% Eye Drop] 1 drop EYEBOTH BID 03/03/19 [ History] Furosemide [Lasix] 20 mg PO DAILY 03/03/19 [History] Hydrocortisone Acetate [Vanicream Hc] 57 gm TP TID 03/03/19 [History] Ipratropium/Albuterol Sulfate [Iprat-Albut 0.5-3(2.5) mg/3 ml] 3 ml IH Q6H PRN 03/03/19 [History] Latanoprost/Pf [Latanoprost 0.005% Eye Drop] 1 drop EYEBOTH BEDTIME 03/03/19 [ History] Levothyroxine 25 mcg PO ACBREAKFAST 03/03/19 [History] Lisinopril 5 mg PO DAILY 03/03/19 [History] Loratadine 10 mg PO BEDTIME 03/03/19 [History] Melatonin 6 mg PO BEDTIME 03/03/19 [History] Metoprolol Tartrate 12.5 mg PO BID 03/03/19 [History] Nicotine [Nicotine Patch] 1 each TD DAILY 03/03/19 [History] Rivaroxaban [Xarelto] 20 mg PO DAILY 03/03/19 [History] Sennosides [Senna] 8.6 mg PO DAILY PRN 03/03/19 [History] Triamcinolone Acetonide [Triamcinolone Acetonide 0.1% Crm] 1 applic TOP BID [History] Past Medical History HEENT History: Reports: Impaired Vision, Other (See Below) Other HEENT History: Wears glasses Cardiovascular History: Reports: Afib, Heart Failure, Hypertension, SOB on Exertion, Other (See Below) Other Cardiovascular History: Atherosclerotic heart disease Respiratory History: Reports: COPD, SOB Genitourinary History: Reports: BPH Musculoskeletal History: Reports: Back Pain, Chronic, Other (See Below) Other Musculoskeletal History: Chronic shoulder pain. Pt fell approximately 1 year ago and has had back and shoulder pain since Endocrine/Metabolic History: Reports: Diabetes, Type II, Hyperthyroidism Hematologic History: Reports: Anemia, Blood Transfusion(s) - Infectious Disease History Infectious Disease History: Reports: Chicken Pox - Past Surgical History HEENT Surgical History: Reports: Cataract Surgery Cardiovascular Surgical History: Reports: None Respiratory Surgical History: Reports: None Male Surgical History: Reports: None Endocrine Surgical History: Reports: None Musculoskeletal Surgical History: Reports: None Social & Family History - Family History Family Medical History: Noncontributory - Tobacco Use Smoking Status *Q: Former Smoker Years of Tobacco use: 60 Packs/Tins Daily: 1 Used Tobacco, but Quit: Yes Month/Year Tobacco Last Used: 11/29 Second Hand Smoke Exposure: No - Caffeine Use Caffeine Use: Reports: Coffee, Soda Caffeine Use Comment: Frequent coke and coffee - Alcohol Use Days Per Week of Alcohol Use: 0 - Recreational Drug Use Recreational Drug Use: No - Living Situation & Occupation Living situation: Reports: Occupation: Retired H&P Review of Systems - Review of Systems: Review Of Systems: ROS reveals no pertinent complaints other than HPI. Exam - Exam Exam: See Below - Vital Signs Vital Signs: Last Vital Signs Temp 36.4 C 03/04/19 04:09 Pulse 59 L 03/04/19 04:09 Resp 28 H 03/04/19 04:08 BP 127/66 03/04/19 04:08 Pulse Ox 90 L 03/04/19 07:13 Weight: 86.682 kg - Exam Quality Assessment: Supplemental Oxygen General: Alert, Oriented, Cooperative, Mild Distress HEENT: EACs Clear, EOMI, Hearing Intact, Mucosa Moist & [place], Nares Patent, Normal Nasal Septum, Posterior Pharynx Clear, Pupils Equal, Pupils Reactive Neck: Supple, Trachea Midline Lungs: Normal Respiratory Effort, Decreased Breath Sounds, Crackles, Rales Cardiovascular: Irregular Rhythm GI/Abdominal Exam: Normal Bowel Sounds, Soft, Non-Tender, No Organomegaly, No Distention, No Abnormal Bruit, No Mass (Male) Exam: Deferred Rectal (Males) Exam: Deferred Back Exam: Normal Inspection, Decreased Range of Motion Extremities: Normal Inspection, Normal Range of Motion, Normal Capillary Refill , Pedal Edema (significant edema), Other Peripheral Pulses: 0: Dorsalis Pedis (L), Dorsalis Pedis (R) Skin: Warm, Dry, Intact Neuro Extensive - Mental Status: Oriented x3, Normal Cognition, Memory Intact Neuro Extensive - Motor, Sensory, Reflexes: CN II-XII Intact (not appropriate at this time ), Abnormal Gait Psychiatric: Alert, Normal Affect, Normal Mood - Patient Data Lab Results Last 24 hrs: Laboratory Results - last 24 hr 03/03/19 03/03/19 03/03/19 Range/Units 16:25 16:25 16:25 WBC 8.33 (4.23-9.07) K/mm3 RBC 2.99 L (4.63-6.08) M/mm3 Hgb 8.0 L (13.7-17.5) gm/L Hct 27.5 L (40.1-51.0) % MCV 92.0 (79.0-92.2) fl MCH 26.8 (25.7-32.2) pg MCHC 29.1 L (32.2-35.5) g/dl RDW Std Deviation 57.0 H (35.1-43.9) fL Plt Count 292 (163-337) K/mm3 MPV 9.3 L (9.4-12.3) fl Neut % (Auto) (34.0-67.9) % Lymph % (Auto) (21.8-53.1) % [place] % (Auto) (5.3-12.2) % Eos % (Auto) (0.8-7.0) Baso % (Auto) (0.1-1.2) % Neut # (Auto) (1.78-5.38) K/mm3 Lymph # (Auto) (1.32-3.57) K/mm3 [place] # (Auto) (0.30-0.82) K/mm3 Eos # (Auto) (0.04-0.54) K/mm3 Baso # (Auto) (0.01-0.08) K/mm3 Neutrophils % (Manual) 60 (40-60) % Band Neutrophils % 0 (0-10) % Lymphocytes % (Manual) 27 (20-40) % Atypical Lymphs % 0 % Monocytes % (Manual) 11 H (2-10) % Eosinophils % (Manual) 1 (0.8-7.0) % Basophils % (Manual) 1 (0.2-1.2) Manual Slide Review Platelet Estimate Adequate RBC Morph Comment Normal PT 11.9 (9.7-12.0) SECONDS INR 1.10 APTT 35 H (22-31) SECONDS Puncture Site ABG pH (7.35-7.45) ABG pCO2 (35.0-45.0) mmHg ABG pO2 (80.0-100.0) mmHg ABG HCO3 (22.0-26.0) meq/L ABG O2 Saturation (96.0-97.0) % ABG Base Excess (-2-2.0) Gibran Test A-a Gradient mmHg O2 Delivery Device Oxygen Flow Rate FiO2 (21.00-100.00) % Sodium 139 (136-145) mEq/L Potassium 4.4 (3.5-5.1) mEq/L Chloride 101 (98-107) mEq/L Carbon Dioxide 30 (21-32) mEq/L Anion Gap 12.4 (5-15) BUN 20 H (7-18) mg/dL Creatinine 1.0 (0.7-1.3) mg/dL Est Cr Clr Drug Dosing 70.06 mL/min Estimated GFR (MDRD) > 60 (>60) mL/min BUN/Creatinine Ratio 20.0 H (14-18) Glucose 119 H (83-115) mg/dL POC Glucose (83-110) mg/dL Calcium 8.8 (8.5-10.1) mg/dL Magnesium 1.6 L (1.8-2.4) mg/dl Total Bilirubin 0.7 (0.2-1.0) mg/dL AST 21 (15-37) U/L ALT 36 (16-63) U/L Alkaline Phosphatase 139 H (46-116) U/L CK-MB (CK-2) 1.7 (0-3.6) ng/ml Troponin I < 0.017 (0.00-0.056) ng/mL C-Reactive Protein 5.3 H* (<1.0) mg/dL NT-Pro-B Natriuret Pep (0-450) pg/mL Total Protein 7.5 (6.4-8.2) g/dl Albumin 2.6 L (3.4-5.0) g/dl Globulin 4.9 gm/dL Albumin/Globulin Ratio 0.5 L (1-2) Urine Color (Yellow) Urine Appearance (Clear) Urine pH (5.0-8.0) Ur Specific [place] (1.005-1.030) Urine Protein (Negative) Urine Glucose (UA) (Negative) Urine Ketones (Negative) Urine Occult Blood (Negative) Urine Nitrite (Negative) Urine Bilirubin (Negative) Urine Urobilinogen (0.2-1.0) Ur Leukocyte Esterase (Negative) Urine RBC (0-5) /hpf Urine WBC (0-5) /hpf Ur Epithelial Cells (0-5) /hpf Amorphous Sediment (NOT SEEN) /hpf Urine Bacteria (FEW) /hpf Urine Mucus (FEW) /hpf MRSA (PCR) 03/03/19 03/03/19 03/03/19 Range/Units 16:25 17:16 17:33 WBC (4.23-9.07) K/mm3 RBC (4.63-6.08) M/mm3 Hgb (13.7-17.5) gm/L Hct (40.1-51.0) % MCV (79.0-92.2) fl MCH (25.7-32.2) pg MCHC (32.2-35.5) g/dl RDW Std Deviation (35.1-43.9) fL Plt Count (163-337) K/mm3 MPV (9.4-12.3) fl Neut % (Auto) (34.0-67.9) % Lymph % (Auto) (21.8-53.1) % [place] % (Auto) (5.3-12.2) % Eos % (Auto) (0.8-7.0) Baso % (Auto) (0.1-1.2) % Neut # (Auto) (1.78-5.38) K/mm3 Lymph # (Auto) (1.32-3.57) K/mm3 [place] # (Auto) (0.30-0.82) K/mm3 Eos # (Auto) (0.04-0.54) K/mm3 Baso # (Auto) (0.01-0.08) K/mm3 Neutrophils % (Manual) (40-60) % Band Neutrophils % (0-10) % Lymphocytes % (Manual) (20-40) % Atypical Lymphs % % Monocytes % (Manual) (2-10) % Eosinophils % (Manual) (0.8-7.0) % Basophils % (Manual) (0.2-1.2) Manual Slide Review Platelet Estimate RBC Morph Comment PT (9.7-12.0) SECONDS INR APTT (22-31) SECONDS Puncture Site Rt radial ABG pH 7.43 (7.35-7.45) ABG pCO2 41.8 (35.0-45.0) mmHg ABG pO2 58.0 L (80.0-100.0) mmHg ABG HCO3 27.2 H (22.0-26.0) meq/L ABG O2 Saturation 90.8 L (96.0-97.0) % ABG Base Excess 3.1 H (-2-2.0) Gibran Test Positive A-a Gradient 133 mmHg O2 Delivery Device Nasal cannula Oxygen Flow Rate 3.5 FiO2 34.00 (21.00-100.00) % Sodium (136-145) mEq/L Potassium (3.5-5.1) mEq/L Chloride (98-107) mEq/L Carbon Dioxide (21-32) mEq/L Anion Gap (5-15) BUN (7-18) mg/dL Creatinine (0.7-1.3) mg/dL Est Cr Clr Drug Dosing mL/min Estimated GFR (MDRD) (>60) mL/min BUN/Creatinine Ratio (14-18) Glucose (83-115) mg/dL POC Glucose 131 H (83-110) mg/dL Calcium (8.5-10.1) mg/dL Magnesium (1.8-2.4) mg/dl Total Bilirubin (0.2-1.0) mg/dL AST (15-37) U/L ALT (16-63) U/L Alkaline Phosphatase (46-116) U/L CK-MB (CK-2) (0-3.6) ng/ml Troponin I (0.00-0.056) ng/mL C-Reactive Protein (<1.0) mg/dL NT-Pro-B Natriuret Pep 8345 H (0-450) pg/mL Total Protein (6.4-8.2) g/dl Albumin (3.4-5.0) g/dl Globulin gm/dL Albumin/Globulin Ratio (1-2) Urine Color (Yellow) Urine Appearance (Clear) Urine pH (5.0-8.0) Ur Specific [place] (1.005-1.030) Urine Protein (Negative) Urine Glucose (UA) (Negative) Urine Ketones (Negative) Urine Occult Blood (Negative) Urine Nitrite (Negative) Urine Bilirubin (Negative) Urine Urobilinogen (0.2-1.0) Ur Leukocyte Esterase (Negative) Urine RBC (0-5) /hpf Urine WBC (0-5) /hpf Ur Epithelial Cells (0-5) /hpf Amorphous Sediment (NOT SEEN) /hpf Urine Bacteria (FEW) /hpf Urine Mucus (FEW) /hpf MRSA (PCR) 03/03/19 03/03/19 03/03/19 Range/Units 21:10 21:10 21:35 WBC (4.23-9.07) K/mm3 RBC (4.63-6.08) M/mm3 Hgb (13.7-17.5) gm/L Hct (40.1-51.0) % MCV (79.0-92.2) fl MCH (25.7-32.2) pg MCHC (32.2-35.5) g/dl RDW Std Deviation (35.1-43.9) fL Plt Count (163-337) K/mm3 MPV (9.4-12.3) fl Neut % (Auto) (34.0-67.9) % Lymph % (Auto) (21.8-53.1) % [place] % (Auto) (5.3-12.2) % Eos % (Auto) (0.8-7.0) Baso % (Auto) (0.1-1.2) % Neut # (Auto) (1.78-5.38) K/mm3 Lymph # (Auto) (1.32-3.57) K/mm3 [place] # (Auto) (0.30-0.82) K/mm3 Eos # (Auto) (0.04-0.54) K/mm3 Baso # (Auto) (0.01-0.08) K/mm3 Neutrophils % (Manual) (40-60) % Band Neutrophils % (0-10) % Lymphocytes % (Manual) (20-40) % Atypical Lymphs % % Monocytes % (Manual) (2-10) % Eosinophils % (Manual) (0.8-7.0) % Basophils % (Manual) (0.2-1.2) Manual Slide Review Platelet Estimate RBC Morph Comment PT (9.7-12.0) SECONDS INR APTT (22-31) SECONDS Puncture Site ABG pH (7.35-7.45) ABG pCO2 (35.0-45.0) mmHg ABG pO2 (80.0-100.0) mmHg ABG HCO3 (22.0-26.0) meq/L ABG O2 Saturation (96.0-97.0) % ABG Base Excess (-2-2.0) Gibran Test A-a Gradient mmHg O2 Delivery Device Oxygen Flow Rate FiO2 (21.00-100.00) % Sodium (136-145) mEq/L Potassium (3.5-5.1) mEq/L Chloride (98-107) mEq/L Carbon Dioxide (21-32) mEq/L Anion Gap (5-15) BUN (7-18) mg/dL Creatinine (0.7-1.3) mg/dL Est Cr Clr Drug Dosing mL/min Estimated GFR (MDRD) (>60) mL/min BUN/Creatinine Ratio (14-18) Glucose (83-115) mg/dL POC Glucose 116 H (83-110) mg/dL Calcium (8.5-10.1) mg/dL Magnesium (1.8-2.4) mg/dl Total Bilirubin (0.2-1.0) mg/dL AST (15-37) U/L ALT (16-63) U/L Alkaline Phosphatase (46-116) U/L CK-MB (CK-2) (0-3.6) ng/ml Troponin I (0.00-0.056) ng/mL C-Reactive Protein (<1.0) mg/dL NT-Pro-B Natriuret Pep (0-450) pg/mL Total Protein (6.4-8.2) g/dl Albumin (3.4-5.0) g/dl Globulin gm/dL Albumin/Globulin Ratio (1-2) Urine Color Yellow (Yellow) Urine Appearance Clear (Clear) Urine pH 6.5 (5.0-8.0) Ur Specific [place] 1.015 (1.005-1.030) Urine Protein Negative (Negative) Urine Glucose (UA) Negative (Negative) Urine Ketones Negative (Negative) Urine Occult Blood Negative (Negative) Urine Nitrite Negative (Negative) Urine Bilirubin Negative (Negative) Urine Urobilinogen 0.2 (0.2-1.0) Ur Leukocyte Esterase Negative (Negative) Urine RBC 0-5 (0-5) /hpf Urine WBC 0-5 (0-5) /hpf Ur Epithelial Cells 0-5 (0-5) /hpf Amorphous Sediment Few H (NOT SEEN) /hpf Urine Bacteria Few (FEW) /hpf Urine Mucus Not seen (FEW) /hpf MRSA (PCR) Negative 03/03/19 03/04/19 03/04/19 Range/Units 23:05 05:54 05:54 WBC 7.95 (4.23-9.07) K/mm3 RBC 2.86 L (4.63-6.08) M/mm3 Hgb 7.6 L (13.7-17.5) gm/L Hct 26.1 L (40.1-51.0) % MCV 91.3 (79.0-92.2) fl MCH 26.6 (25.7-32.2) pg MCHC 29.1 L (32.2-35.5) g/dl RDW Std Deviation 57.5 H (35.1-43.9) fL Plt Count 256 (163-337) K/mm3 MPV 9.6 (9.4-12.3) fl Neut % (Auto) 57.1 (34.0-67.9) % Lymph % (Auto) 23.9 (21.8-53.1) % [place] % (Auto) 11.7 (5.3-12.2) % Eos % (Auto) 6.8 (0.8-7.0) Baso % (Auto) 0.4 (0.1-1.2) % Neut # (Auto) 4.54 (1.78-5.38) K/mm3 Lymph # (Auto) 1.90 (1.32-3.57) K/mm3 [place] # (Auto) 0.93 H (0.30-0.82) K/mm3 Eos # (Auto) 0.54 (0.04-0.54) K/mm3 Baso # (Auto) 0.03 (0.01-0.08) K/mm3 Neutrophils % (Manual) (40-60) % Band Neutrophils % (0-10) % Lymphocytes % (Manual) (20-40) % Atypical Lymphs % % Monocytes % (Manual) (2-10) % Eosinophils % (Manual) (0.8-7.0) % Basophils % (Manual) (0.2-1.2) Manual Slide Review Abnormal smear Platelet Estimate RBC Morph Comment PT (9.7-12.0) SECONDS INR APTT (22-31) SECONDS Puncture Site Rt radial ABG pH 7.38 (7.35-7.45) ABG pCO2 42.7 (35.0-45.0) mmHg ABG pO2 58.0 L (80.0-100.0) mmHg ABG HCO3 24.5 (22.0-26.0) meq/L ABG O2 Saturation 88.7 L (96.0-97.0) % ABG Base Excess -0.2 (-2-2.0) Gibran Test Positive A-a Gradient mmHg O2 Delivery Device Nasal cannula Oxygen Flow Rate 4.0 FiO2 0.00 L (21.00-100.00) % Sodium 134 L (136-145) mEq/L Potassium 4.0 (3.5-5.1) mEq/L Chloride 98 (98-107) mEq/L Carbon Dioxide 26 (21-32) mEq/L Anion Gap 14.0 (5-15) BUN 22 H (7-18) mg/dL Creatinine 1.0 (0.7-1.3) mg/dL Est Cr Clr Drug Dosing 67.98 mL/min Estimated GFR (MDRD) > 60 (>60) mL/min BUN/Creatinine Ratio 21.0 H (14-18) Glucose 97 (83-115) mg/dL POC Glucose (83-110) mg/dL Calcium 8.9 (8.5-10.1) mg/dL Magnesium 2.0 (1.8-2.4) mg/dl Total Bilirubin (0.2-1.0) mg/dL AST (15-37) U/L ALT (16-63) U/L Alkaline Phosphatase (46-116) U/L CK-MB (CK-2) (0-3.6) ng/ml Troponin I (0.00-0.056) ng/mL C-Reactive Protein 5.9 H* (<1.0) mg/dL NT-Pro-B Natriuret Pep (0-450) pg/mL Total Protein (6.4-8.2) g/dl Albumin (3.4-5.0) g/dl Globulin gm/dL Albumin/Globulin Ratio (1-2) Urine Color (Yellow) Urine Appearance (Clear) Urine pH (5.0-8.0) Ur Specific [place] (1.005-1.030) Urine Protein (Negative) Urine Glucose (UA) (Negative) Urine Ketones (Negative) Urine Occult Blood (Negative) Urine Nitrite (Negative) Urine Bilirubin (Negative) Urine Urobilinogen (0.2-1.0) Ur Leukocyte Esterase (Negative) Urine RBC (0-5) /hpf Urine WBC (0-5) /hpf Ur Epithelial Cells (0-5) /hpf Amorphous Sediment (NOT SEEN) /hpf Urine Bacteria (FEW) /hpf Urine Mucus (FEW) /hpf MRSA (PCR) 03/04/19 Range/Units 06:43 WBC (4.23-9.07) K/mm3 RBC (4.63-6.08) M/mm3 Hgb (13.7-17.5) gm/L Hct (40.1-51.0) % MCV (79.0-92.2) fl MCH (25.7-32.2) pg MCHC (32.2-35.5) g/dl RDW Std Deviation (35.1-43.9) fL Plt Count (163-337) K/mm3 MPV (9.4-12.3) fl Neut % (Auto) (34.0-67.9) % Lymph % (Auto) (21.8-53.1) % [place] % (Auto) (5.3-12.2) % Eos % (Auto) (0.8-7.0) Baso % (Auto) (0.1-1.2) % Neut # (Auto) (1.78-5.38) K/mm3 Lymph # (Auto) (1.32-3.57) K/mm3 [place] # (Auto) (0.30-0.82) K/mm3 Eos # (Auto) (0.04-0.54) K/mm3 Baso # (Auto) (0.01-0.08) K/mm3 Neutrophils % (Manual) (40-60) % Band Neutrophils % (0-10) % Lymphocytes % (Manual) (20-40) % Atypical Lymphs % % Monocytes % (Manual) (2-10) % Eosinophils % (Manual) (0.8-7.0) % Basophils % (Manual) (0.2-1.2) Manual Slide Review Platelet Estimate RBC Morph Comment PT (9.7-12.0) SECONDS INR APTT (22-31) SECONDS Puncture Site ABG pH (7.35-7.45) ABG pCO2 (35.0-45.0) mmHg ABG pO2 (80.0-100.0) mmHg ABG HCO3 (22.0-26.0) meq/L ABG O2 Saturation (96.0-97.0) % ABG Base Excess (-2-2.0) Gibran Test A-a Gradient mmHg O2 Delivery Device Oxygen Flow Rate FiO2 (21.00-100.00) % Sodium (136-145) mEq/L Potassium (3.5-5.1) mEq/L Chloride (98-107) mEq/L Carbon Dioxide (21-32) mEq/L Anion Gap (5-15) BUN (7-18) mg/dL Creatinine (0.7-1.3) mg/dL Est Cr Clr Drug Dosing mL/min Estimated GFR (MDRD) (>60) mL/min BUN/Creatinine Ratio (14-18) Glucose (83-115) mg/dL POC Glucose 115 H (83-110) mg/dL Calcium (8.5-10.1) mg/dL Magnesium (1.8-2.4) mg/dl Total Bilirubin (0.2-1.0) mg/dL AST (15-37) U/L ALT (16-63) U/L Alkaline Phosphatase (46-116) U/L CK-MB (CK-2) (0-3.6) ng/ml Troponin I (0.00-0.056) ng/mL C-Reactive Protein (<1.0) mg/dL NT-Pro-B Natriuret Pep (0-450) pg/mL Total Protein (6.4-8.2) g/dl Albumin (3.4-5.0) g/dl Globulin gm/dL Albumin/Globulin Ratio (1-2) Urine Color (Yellow) Urine Appearance (Clear) Urine pH (5.0-8.0) Ur Specific [place] (1.005-1.030) Urine Protein (Negative) Urine Glucose (UA) (Negative) Urine Ketones (Negative) Urine Occult Blood (Negative) Urine Nitrite (Negative) Urine Bilirubin (Negative) Urine Urobilinogen (0.2-1.0) Ur Leukocyte Esterase (Negative) Urine RBC (0-5) /hpf Urine WBC (0-5) /hpf Ur Epithelial Cells (0-5) /hpf Amorphous Sediment (NOT SEEN) /hpf Urine Bacteria (FEW) /hpf Urine Mucus (FEW) /hpf MRSA (PCR) Result Diagrams: 03/06/19 05:18 03/06/19 05:18 Problem List Initiated/Reviewed/Updated: Yes Orders Last 24hrs: Active Orders 24 hr Category Date Time Status Admission Status [Patient Status] [ADT] Routine ADT 03/03/19 19:44 Active Antiembolic Devices [RC] PER UNIT ROUTINE Care 03/03/19 19:06 Inactive Aspiration Precautions [RC] , Care 03/03/19 20:50 Active Blood Glucose Check, Bedside [RC] QIDACANDBED Care 03/03/19 19:10 Active Height and Weight [RC] 04 Care 03/03/19 19:04 Active Intake and Output [RC] 04,16 Care 03/03/19 19:05 Active Oxygen Therapy [RC] PRN Care 03/03/19 19:05 Active RT Aerosol Therapy [RC] ASDIRECTED Care 03/03/19 19:06 Active RT BiPAP/CPAP [RC] ASDIRECTED Care 03/04/19 01:23 Active Up ad Iris [RC] BID Care 03/03/19 19:04 Active VTE/DVT Education [RC] BID Care 03/03/19 19:05 Active Vital Signs [RC] Q4HR Care 03/03/19 19:05 Active Consult to Case Management/Asset Protection Specialist [CONS] Cons 03/03/19 19:04 Active Routine Consult to Spiritual Care [CONS] Routine Cons 03/03/19 19:04 Active OT Evaluation and Treatment [CONS] Routine Cons 03/03/19 19:04 Active PT Evaluation and Treatment [CONS] Routine Cons 03/03/19 19:04 Active Respiratory Care Assess and Treatment [CONS] Routine Cons 03/03/19 19:04 Active 2 Gram Sodium Diet [DIET] Diet 03/03/19 Dinner Active Consistent Carbohydrate Diet [DIET] Diet 03/03/19 Dinner Active Fluid Restriction [DIET] Diet 03/04/19 Breakfast Active Heart Healthy Diet [DIET] Diet 03/03/19 Dinner Active Chest 1V Frontal [CR] Stat Exams 03/03/19 16:56 Taken Echo Comp wo Cont [US] Routine Exams 03/04/19 07:00 Ordered BASIC METABOLIC PANEL,BMP [CHEM] AM Lab 03/05/19 05:11 Ordered BASIC METABOLIC PANEL,BMP [CHEM] AM Lab 03/06/19 05:11 Ordered BASIC METABOLIC PANEL,BMP [CHEM] AM Lab 03/07/19 05:11 Ordered BASIC METABOLIC PANEL,BMP [CHEM] AM Lab 03/08/19 05:11 Ordered CBC WITH AUTO DIFF [HEME] AM Lab 03/05/19 05:11 Ordered CBC WITH AUTO DIFF [HEME] AM Lab 03/06/19 05:11 Ordered CBC WITH AUTO DIFF [HEME] AM Lab 03/07/19 05:11 Ordered CBC WITH AUTO DIFF [HEME] AM Lab 03/08/19 05:11 Ordered CULTURE BLOOD [BC] Stat Lab 03/03/19 18:17 Received CULTURE BLOOD [BC] Stat Lab 03/03/19 20:30 Received MAGNESIUM [CHEM] AM Lab 03/05/19 05:11 Ordered MAGNESIUM [CHEM] AM Lab 03/06/19 05:11 Ordered MAGNESIUM [CHEM] AM Lab 03/07/19 05:11 Ordered MAGNESIUM [CHEM] AM Lab 03/08/19 05:11 Ordered Acetaminophen [Tylenol] Med 03/03/19 21:00 Active 650 mg PO TID Acetaminophen/HYDROcodone [Louin 325-5 MG] Med 03/03/19 19:04 Active 1 tab PO Q4H PRN Albuterol/Ipratropium Med 03/04/19 09:00 Pending 4 gm IH QID Albuterol/Ipratropium [DuoNeb 3.0-0.5 MG/3 ML] Med 03/03/19 19:04 Active 3 ml NEB Q4H PRN Bisacodyl [Dulcolax] Med 03/03/19 19:04 Active 5 mg PO DAILY PRN Dextrose 50% in Water Med 03/03/19 19:10 Active 50 ml IVPUSH ASDIRECTED PRN Docusate Sodium/Sennosides [Senna Plus] Med 03/03/19 19:04 Active 1 tab PO BID PRN Dorzolamide [Trusopt 2% Ophth Soln] Med 03/04/19 09:00 Active 0 ml EYEBOTH BID HYDROmorphone [Dilaudid] Med 03/03/19 19:04 Active 0.5 mg IVPUSH Q2H PRN Hydrocortisone Acetate [Vanicream Hc] Med 03/04/19 09:00 Pending 57 gm TP TID Insulin Lispro [HumaLOG] Med 03/04/19 07:00 Active See Protocol SUBCUT QIDACANDBED LORazepam [Ativan] Med 03/03/19 19:04 Active 0.25 mg IV Q6H PRN Latanoprost [Xalatan 0.005% Ophth Soln] Med 03/04/19 21:00 Active 0 ml EYEBOTH BEDTIME Levothyroxine Med 03/04/19 06:00 Active 25 mcg PO ACBREAKFAST Loratadine [Claritin] Med 03/04/19 21:00 Active 10 mg PO BEDTIME Melatonin Med 03/04/19 21:00 Active 6 mg PO BEDTIME Metoprolol Tartrate [Lopressor] Med 03/03/19 21:00 Active 12.5 mg PO BID Morphine Med 03/03/19 23:54 Active 1 mg IVPUSH Q4H PRN Nicotine [Habitrol] Med 03/04/19 09:00 Active 21 mg TRDERM Q72H Ondansetron [Zofran] Med 03/03/19 19:04 Active 4 mg IV Q6H PRN Pantoprazole [ProTONIX IV] Med 03/03/19 21:00 Active 40 mg IV Q12HR Promethazine [Phenergan] 6.25 mg Med 03/03/19 19:04 Active Sodium Chloride 0.9% [Normal Saline] 50 ml IV Q6H Remove Patch Med 03/04/19 09:00 Active 1 ea TRDERM Q72H Rivaroxaban [Xarelto] Med 03/04/19 09:00 Active 20 mg PO DAILY Sennosides [Senna] Med 03/03/19 23:09 Active 8.6 mg PO DAILY PRN Sodium Chloride 0.9% [Saline Flush] Med 03/03/19 16:59 Active 10 ml FLUSH ASDIRECTED PRN Triamcinolone Acetonide [Triamcinolone Acetonide 0.1% Med 03/04/19 09:00 Active Crm] 0 gm TOP BID hydroCHLOROthiazide Med 03/04/19 09:00 Active 12.5 mg PO DAILY Blood Culture x2 Reflex Set [OM.PC] Stat Oth 03/03/19 16:57 Ordered Peripheral IV Insertion Adult [OM.PC] Stat Oth 03/03/19 16:59 Ordered Code Status [Resuscitation Status] Routine Resus Stat 03/03/19 20:46 Ordered Medication Orders Acetaminophen (Tylenol) 650 mg PO TID [facility] Last Admin: 03/03/19 21:27 Dose: 650 mg Hydrocodone Bitart/Acetaminophen (Louin 325-5 Mg) 1 tab PO Q4H PRN PRN Reason: Pain (moderate 4-6) Albuterol/Ipratropium (Duoneb 3.0-0.5 Mg/3 Ml) 3 ml NEB Q4H PRN PRN Reason: Shortness Of Breath/wheezing Last Admin: 03/04/19 05:57 Dose: 3 ml Admin: 03/04/19 01:55 Dose: 3 ml Bisacodyl (Dulcolax) 5 mg PO DAILY PRN PRN Reason: Constipation Dextrose/Water (Dextrose 50% In Water) 50 ml IVPUSH ASDIRECTED PRN PRN Reason: Hypoglycemia Dorzolamide HCl (Trusopt 2% Ophth Soln) 0 ml EYEBOTH BID [facility] Hydrochlorothiazide (Hydrochlorothiazide) 12.5 mg PO DAILY [facility] Hydromorphone HCl (Dilaudid) 0.5 mg IVPUSH Q2H PRN PRN Reason: Pain (severe 7-10) Promethazine HCl 6.25 mg/ (Sodium Chloride) 50.25 mls @ 100 mls/hr IV Q6H PRN PRN Reason: Nausea/Vomiting Insulin Human Lispro (Humalog) 0 unit SUBCUT QIDACANDBED [facility]; Protocol Last Admin: 03/04/19 07:45 Dose: Latanoprost (Xalatan 0.005% Ophth Soln) 0 ml EYEBOTH BEDTIME [facility] Levothyroxine Sodium (Levothyroxine) 25 mcg PO ACBREAKFAST [facility] Last Admin: 03/04/19 06:48 Dose: 25 mcg Loratadine (Claritin) 10 mg PO BEDTIME JOANNA Lorazepam (Ativan) 0.25 mg IV Q6H PRN PRN Reason: Anxiety Last Admin: 03/04/19 01:19 Dose: 0.25 mg Melatonin (Melatonin) 6 mg PO BEDTIME [facility] Metoprolol Tartrate (Lopressor) 12.5 mg PO BID [facility] Last Admin: 03/03/19 21:26 Dose: 12.5 mg Miscellaneous Information (Remove Patch) 1 ea TRDERM Q72H [facility] Morphine Sulfate (Morphine) 1 mg IVPUSH Q4H PRN PRN Reason: dyspnea/severe chest pain Last Admin: 03/04/19 00:13 Dose: 1 mg Nicotine (Habitrol) 21 mg TRDERM Q72H [facility] Non-Formulary Medication (Albuterol/Ipratropium) 4 gm IH QID [facility] Non-Formulary Medication (Hydrocortisone Acetate [Vanicream Hc]) 57 gm TP TID [facility] Ondansetron HCl (Zofran) 4 mg IV Q6H PRN PRN Reason: Nausea/Vomiting Pantoprazole Sodium (Protonix Iv) 40 mg IV Q12HR [facility] Last Admin: 03/03/19 21:29 Dose: 40 mg Rivaroxaban (Xarelto) 20 mg PO DAILY [facility] Senna (Senna) 8.6 mg PO DAILY PRN PRN Reason: Constipation Senna/Docusate Sodium (Senna Plus) 1 tab PO BID PRN PRN Reason: Constipation Sodium Chloride (Saline Flush) 10 ml FLUSH ASDIRECTED PRN PRN Reason: Keep Vein Open Last Admin: 03/03/19 17:04 Dose: 10 ml Triamcinolone Acetonide (Triamcinolone Acetonide 0.1% Crm) 0 gm TOP BID [facility] Assessment/Plan Comment:: Assessment: Acute: Heart Failure - Carries a hx/o HF with Reduced EF 45-50% ([facility] - Had [place] in 1992 with balloon angioplasty in [place] - Statin was discontinued due to little benefit [facility] - ProBNP of 8345 - Received diuretics in ED - Heart failure regimen: diuretics, salt/fluids restriction, Is/Os and daily weight check - Respiratory Failure - Acute on chronic - Has hx/o COPD with baseline supplemental O2 of 2-3 L - ABG shows hypoxemia with pH of 7.43 and pO2 of 58 - He was 6-5 liters; simple mask - Consider NIPPV Anemia - Hgb of 8.0 - No baseline for comparison - Has hx/o normocytic anemia - On Xarelto for stroke prophylaxis - Heme-occult test - Monitor H/H Hypomagnesemia - Mg of 1.6 - 2/2 inadequate intake - Replete and monitor Chronic: Chronic Hypoxic Respiratory Failure 2-3 L of NC, COPD, HF with Reduced EF 45-50%, Normocytic Anemia, Cardiomyopathy non PM Candidate, Chronic Atrial Fibrillation on Xarelto, CAD, DM2, Dysphagia, Urinary Retention, Chronic Encephalopathy, Hx/o Dermatitis, Hx/o Melanoma In Situ, and Hx/o Cardiogenic Shock 2/2 Bradycardia Plan: Admitted overnight for congestive heart failure Routine AM labs Resume Home Meds AHA/ADA diet Accu-check QID with ISS Heart failure regime Fall precautions RT/OT/PT to asses and treat NIPPV for respiratory failure Monitor for clinical deterioration SW/CM for d/c planning Code status: DNR/DNI Additional orders as above Prognosis guarded-serious
--- NOTE | 2019-03-04 08:11 | CR ---
Chest: Portable view of the chest was obtained. Comparison: No previous study. Heart is enlarged. Diffuse increased lung markings are seen most likely representing fairly severe pulmonary vascular congestion. Bony structures are grossly intact. Impression: 1. Findings suspicious for fairly severe CHF. Diagnostic code #3
[2019-03-04] MEDS ORDERED: Furosemide 20 MG/2 ML VIAL IVPUSH ONE ×2 (08:45→15:57)
[2019-03-04] MEDS: Acetaminophen 325 MG Tab PO SCH ×3 (08:48→21:50)
[2019-03-04] MEDS: Metoprolol Tartrate 25 MG Tab PO SCH ×2 (08:49→22:12)
[2019-03-04] MEDS: Rivaroxaban 10 MG Tab PO SCH (08:49)
[2019-03-04] MEDS: Pantoprazole 40 MG Vial IV SCH (08:53)
[2019-03-04] MEDS: Hydrochlorothiazide 12.5 MG Cap PO SCH (08:53)
[2019-03-04] MEDS ORDERED: Nicotine 21 MG/24 Hr Patch TRDERM SCH (09:00)
[2019-03-04] MEDS ORDERED: Melatonin 3 MG Tab PO SCH (09:00)
[2019-03-04] MEDS ORDERED: Triamcinolone Acetonide 0.1% Crm 15 GM Tube TOP SCH (09:00)
[2019-03-04] MEDS: Dorzolamide 2% Ophth Soln 10 ML Bottle EYEBOTH SCH ×3 (10:50→22:51)
[2019-03-04] MEDS: Triamcinolone Acetonide 0.1% Crm 15 GM Tube TOP SCH ×2 (10:51→22:51)
--- NOTE | 2019-03-04 11:11 | CR ---
Chest: Portable view of the chest was obtained. Comparison: Prior chest x-ray of 03/03/19. Increasing pulmonary vascular congestion with early pulmonary edema is noted. Heart is enlarged. Bony structures are grossly intact. Pressure: 1. Worsening findings on both sides of the chest which most likely represent worsening CHF with early pulmonary edema. Please correlate if this matches clinically. Diagnostic code #3
[2019-03-04] MEDS: IPRATROPIUM INH SCH ×4 (11:17→21:23)
[2019-03-04] MEDS: ALBUTEROL INH SCH ×4 (11:17→21:23)
[2019-03-04] MEDS: HYDROCORTISONE ACETATE TOP SCH ×3 (11:53→22:50)
--- NOTE | 2019-03-04 16:00 | PCM.SN ---
- Free Text/Narrative Note: Patient is in acute respiratory distress and meets criteria for ARDS. He needs mechanical vent at this time but he refused it. He is DNR/DNI. Re-addressed code status and offered comfort measures, daughter not receptive.
[2019-03-04] MEDS: Melatonin 3 MG Tab PO SCH (22:11)
[2019-03-04] MEDS: Loratadine 10 MG Tab PO SCH (22:12)
[2019-03-04] MEDS: Pantoprazole 40 MG Tab.CR PO SCH (22:12)
[2019-03-04] MEDS: cefTRIAXone 1 GM in Sodium Chloride 0.9% 100 ML IV SCH (22:17)
[2019-03-04] MEDS: Latanoprost 0.005% Ophth Soln 2.5 ML Bottle EYEBOTH SCH (22:52)
[2019-03-04] MEDS: Azithromycin 500 MG in Sodium Chloride 0.9% 250 ML IV SCH (23:34)
[2019-03-05] MEDS: Morphine 2 MG/ML Syringe IVPUSH PRN ×3 (00:37→20:41)
[2019-03-05] MEDS: Levothyroxine 25 MCG Tab PO SCH (05:59)
[2019-03-05] MEDS: Insulin Lispro 100 Units/ML 3 ML Vial SUBCUT SCH ×4 (07:03→23:48)
[2019-03-05] MEDS: Acetaminophen 325 MG Tab PO SCH ×3 (08:14→22:44)
[2019-03-05] MEDS: Hydrochlorothiazide 12.5 MG Cap PO SCH ×2 (08:14→22:47)
[2019-03-05] MEDS: Metoprolol Tartrate 25 MG Tab PO SCH ×2 (08:15→22:45)
[2019-03-05] MEDS: Pantoprazole 40 MG Tab.CR PO SCH ×2 (08:15→22:44)
[2019-03-05] MEDS: Rivaroxaban 10 MG Tab PO SCH (08:15)
[2019-03-05] MEDS: Dorzolamide 2% Ophth Soln 10 ML Bottle EYEBOTH SCH ×2 (08:17→23:43)
[2019-03-05] MEDS: HYDROCORTISONE ACETATE TOP SCH ×3 (08:21→23:47)
[2019-03-05] MEDS: Triamcinolone Acetonide 0.1% Crm 15 GM Tube TOP SCH ×2 (08:22→23:43)
--- NOTE | 2019-03-05 08:24 | PCM.PN ---
- General Info Date of Service: 03/05/19 Admission Dx/Problem (Free Text): Admission Diagnosis/Problem Admission Diagnosis/Problem Congestive heart failure Subjective Update: Follow Up Functional Status: Reports: Pain Controlled, Tolerating Diet, Urinating. Denies : New Symptoms - Review of Systems General: Reports: Weakness, Fatigue, Malaise. Denies: Fever, Chills HEENT: Reports: No Symptoms Pulmonary: Reports: Shortness of Breath. Denies: Cough, Other Cardiovascular: Denies: Chest Pain, Dyspnea on Exertion, Lightheadedness Gastrointestinal: Reports: Decreased Appetite. Denies: Abdominal Pain, Nausea, Vomiting Genitourinary: Reports: No Symptoms Musculoskeletal: Reports: No Symptoms Skin: Reports: Bruising Neurological: Reports: Difficulty Walking, Weakness, Gait Disturbance. Denies: Confusion Psychiatric: Denies: Mood Lability, Anxiety, Agitation, Cravings, Hallucinations Systems Review Comment:: No significant issues overnight. He rested well and tolerated low dose of ativan and morphine. He was much more compliant with his NIPPV than the night before. - Patient Data Vitals - Most Recent: Last Vital Signs Temp 37.0 C 03/05/19 08:10 Pulse 68 03/05/19 08:15 Resp 24 H 03/05/19 08:10 BP 134/69 03/05/19 08:15 Pulse Ox 97 03/05/19 08:10 Weight - Most Recent: 87.18 kg I&O - Last 24 Hours: Intake & Output 03/04/19 03/05/19 03/05/19 22:59 06:59 14:59 Intake Total 400 750 Output Total 900 960 Balance -500 -210 Lab Results Last 24 Hours: Laboratory Results - last 24 hr 03/04/19 03/04/19 03/05/19 Range/Units 11:13 17:54 05:40 WBC (4.23-9.07) K/mm3 RBC (4.63-6.08) M/mm3 Hgb (13.7-17.5) gm/L Hct (40.1-51.0) % MCV (79.0-92.2) fl MCH (25.7-32.2) pg MCHC (32.2-35.5) g/dl RDW Std Deviation (35.1-43.9) fL Plt Count (163-337) K/mm3 MPV (9.4-12.3) fl Neut % (Auto) (34.0-67.9) % Lymph % (Auto) (21.8-53.1) % [place] % (Auto) (5.3-12.2) % Eos % (Auto) (0.8-7.0) Baso % (Auto) (0.1-1.2) % Neut # (Auto) (1.78-5.38) K/mm3 Lymph # (Auto) (1.32-3.57) K/mm3 [place] # (Auto) (0.30-0.82) K/mm3 Eos # (Auto) (0.04-0.54) K/mm3 Baso # (Auto) (0.01-0.08) K/mm3 Sodium 135 L (136-145) mEq/L Potassium 4.0 (3.5-5.1) mEq/L Chloride 100 (98-107) mEq/L Carbon Dioxide 28 (21-32) mEq/L Anion Gap 11.0 (5-15) BUN 21 H (7-18) mg/dL Creatinine 0.9 (0.7-1.3) mg/dL Est Cr Clr Drug Dosing 75.53 mL/min Estimated GFR (MDRD) > 60 (>60) mL/min BUN/Creatinine Ratio 23.3 H (14-18) Glucose 83 (83-115) mg/dL POC Glucose 180 H 123 H (83-110) mg/dL Calcium 8.3 L (8.5-10.1) mg/dL Magnesium 1.8 (1.8-2.4) mg/dl 03/05/19 03/05/19 Range/Units 05:58 06:04 WBC 6.14 (4.23-9.07) K/mm3 RBC 2.55 L (4.63-6.08) M/mm3 Hgb 6.7 L* (13.7-17.5) gm/L Hct 23.3 L (40.1-51.0) % MCV 91.4 (79.0-92.2) fl MCH 26.3 (25.7-32.2) pg MCHC 28.8 L (32.2-35.5) g/dl RDW Std Deviation 57.7 H (35.1-43.9) fL Plt Count 230 (163-337) K/mm3 MPV 9.2 L (9.4-12.3) fl Neut % (Auto) 47.8 (34.0-67.9) % Lymph % (Auto) 30.6 (21.8-53.1) % [place] % (Auto) 13.0 H (5.3-12.2) % Eos % (Auto) 8.1 H (0.8-7.0) Baso % (Auto) 0.3 (0.1-1.2) % Neut # (Auto) 2.93 (1.78-5.38) K/mm3 Lymph # (Auto) 1.88 (1.32-3.57) K/mm3 [place] # (Auto) 0.80 (0.30-0.82) K/mm3 Eos # (Auto) 0.50 (0.04-0.54) K/mm3 Baso # (Auto) 0.02 (0.01-0.08) K/mm3 Sodium (136-145) mEq/L Potassium (3.5-5.1) mEq/L Chloride (98-107) mEq/L Carbon Dioxide (21-32) mEq/L Anion Gap (5-15) BUN (7-18) mg/dL Creatinine (0.7-1.3) mg/dL Est Cr Clr Drug Dosing mL/min Estimated GFR (MDRD) (>60) mL/min BUN/Creatinine Ratio (14-18) Glucose (83-115) mg/dL POC Glucose 99 (83-110) mg/dL Calcium (8.5-10.1) mg/dL Magnesium (1.8-2.4) mg/dl Carlos Results Last 24 Hours: Microbiology 03/03/19 20:30 Aerobic Blood Culture - Preliminary Blood - Venous - Lab Draw NO GROWTH AFTER 1 DAY Anaerobic Blood Culture - Preliminary NO GROWTH AFTER 1 DAY 03/03/19 18:17 Aerobic Blood Culture - Preliminary Blood - Venous NO GROWTH AFTER 1 DAY Anaerobic Blood Culture - Preliminary NO GROWTH AFTER 1 DAY Med Orders - Current: Current Medications Acetaminophen (Tylenol) 650 mg PO TID JOANNA Last Admin: 03/05/19 08:14 Dose: 650 mg Hydrocodone Bitart/Acetaminophen ([place] 325-5 Mg) 1 tab PO Q4H PRN PRN Reason: Pain (moderate 4-6) Albuterol/Ipratropium (Duoneb 3.0-0.5 Mg/3 Ml) 3 ml NEB Q4H PRN PRN Reason: Shortness Of Breath/wheezing Last Admin: 03/04/19 21:21 Dose: 3 ml Bisacodyl (Dulcolax) 5 mg PO DAILY PRN PRN Reason: Constipation Dextrose/Water (Dextrose 50% In Water) 50 ml IVPUSH ASDIRECTED PRN PRN Reason: Hypoglycemia Dorzolamide HCl (Trusopt 2% Ophth Soln) 0 ml EYEBOTH BID [facility] Last Admin: 03/05/19 08:17 Dose: 1 drop Hydrochlorothiazide (Hydrochlorothiazide) 12.5 mg PO DAILY [facility] Last Admin: 03/05/19 08:14 Dose: 12.5 mg Hydromorphone HCl (Dilaudid) 0.5 mg IVPUSH Q2H PRN PRN Reason: Pain (severe 7-10) Promethazine HCl 6.25 mg/ (Sodium Chloride) 50.25 mls @ 100 mls/hr IV Q6H PRN PRN Reason: Nausea/Vomiting Azithromycin 500 mg/ Sodium (Chloride) 250 mls @ 250 mls/hr IV Q24H [facility] Last Admin: 03/04/19 23:34 Dose: 250 mls/hr Ceftriaxone Sodium 1 gm/ (Sodium Chloride) 100 mls @ 200 mls/hr IV Q24H [facility] Last Admin: 03/04/19 22:17 Dose: 200 mls/hr Insulin Human Lispro (Humalog) 0 unit SUBCUT QIDACANDBED [facility]; Protocol Last Admin: 03/05/19 07:03 Dose: Not Given Latanoprost (Xalatan 0.005% Ophth Soln) 0 ml EYEBOTH BEDTIME [facility] Last Admin: 03/04/19 22:52 Dose: Not Given Levothyroxine Sodium (Levothyroxine) 25 mcg PO ACBREAKFAST [facility] Last Admin: 03/05/19 05:59 Dose: 25 mcg Loratadine (Claritin) 10 mg PO BEDTIME [facility] Last Admin: 03/04/19 22:12 Dose: 10 mg Lorazepam (Ativan) 0.25 mg IV Q6H PRN PRN Reason: Anxiety Last Admin: 08/22/19 20:01 Dose: 0.25 mg Melatonin (Melatonin) 6 mg PO BEDTIME [facility] Last Admin: 03/04/19 22:11 Dose: 6 mg Metoprolol Tartrate (Lopressor) 12.5 mg PO BID [facility] Last Admin: 03/05/19 08:15 Dose: 12.5 mg Miscellaneous Information (Remove Patch) 1 ea TRDERM Q72H [facility] Last Admin: 03/04/19 10:53 Dose: Not Given Morphine Sulfate (Morphine) 1 mg IVPUSH Q4H PRN PRN Reason: dyspnea/severe chest pain Last Admin: 03/05/19 00:37 Dose: 1 mg Nicotine (Habitrol) 21 mg TRDERM Q72H [facility] Last Admin: 03/04/19 10:53 Dose: Not Given Ondansetron HCl (Zofran) 4 mg IV Q6H PRN PRN Reason: Nausea/Vomiting Pantoprazole Sodium (Protonix) 40 mg PO Q12H [facility] Last Admin: 03/05/19 08:15 Dose: 40 mg Albuterol/Ipratropium Pt's Own Medication 0 each INH QID [facility] Last Admin: 03/04/19 21:23 Dose: Not Given Hydrocortisone Acetate [Vanicream Hc] 0 each TOP TID [facility] Last Admin: 03/05/19 08:21 Dose: 1 each Rivaroxaban (Xarelto) 20 mg PO DAILY [facility] Last Admin: 03/05/19 08:15 Dose: 20 mg Senna (Senna) 8.6 mg PO DAILY PRN PRN Reason: Constipation Senna/Docusate Sodium (Senna Plus) 1 tab PO BID PRN PRN Reason: Constipation Sodium Chloride (Saline Flush) 10 ml FLUSH ASDIRECTED PRN PRN Reason: Keep Vein Open Last Admin: 03/03/19 17:04 Dose: 10 ml Triamcinolone Acetonide (Triamcinolone Acetonide 0.1% Crm) 0 gm TOP BID [facility] Last Admin: 03/05/19 08:22 Dose: 1 applic Discontinued Medications Acetaminophen (Tylenol) 650 mg PO ONETIME ONE Stop: 03/03/19 17:04 Last Admin: 03/03/19 17:10 Dose: 650 mg Albuterol/Ipratropium (Duoneb 3.0-0.5 Mg/3 Ml) 3 ml NEB Q6H PRN PRN Reason: Dyspnea Last Admin: 03/03/19 20:56 Dose: 3 ml Docusate Sodium (Colace) 100 mg PO BID PRN PRN Reason: Constipation Furosemide (Lasix) 60 mg IVPUSH NOW ONE Stop: 03/03/19 17:00 Last Admin: 03/03/19 17:04 Dose: 60 mg Furosemide (Lasix) 10 mg IVPUSH NOW ONE Stop: 03/03/19 23:55 Last Admin: 03/04/19 00:12 Dose: 10 mg Furosemide (Lasix) 10 mg IVPUSH NOW ONE Stop: 03/04/19 08:46 Last Admin: 03/04/19 10:50 Dose: 10 mg Furosemide (Lasix) 20 mg IVPUSH ONETIME ONE Stop: 03/04/19 15:58 Last Admin: 03/04/19 17:43 Dose: 20 mg Ceftriaxone Sodium 2 gm/ (Sodium Chloride) 100 mls @ 200 mls/hr IV ONETIME ONE Stop: 03/03/19 18:43 Last Admin: 03/03/19 18:25 Dose: Not Given Ceftriaxone Sodium 2 gm/ (Sodium Chloride) 100 mls @ 200 mls/hr IV ONETIME ONE Stop: 03/03/19 18:53 Last Admin: 03/03/19 18:56 Dose: 200 mls/hr Magnesium Sulfate 2 gm/ Premix 50 mls @ 25 mls/hr IV NOW STA Stop: 03/04/19 00:58 Last Admin: 03/03/19 23:42 Dose: 25 mls/hr Insulin Human Lispro (Humalog) 0 unit SUBCUT QIDACANDBED PRN; Protocol PRN Reason: Hyperglycemia Melatonin (Melatonin) 6 mg PO DAILY [facility] Non-Formulary Medication (Acetaminophen) 1,000 mg PO TID PRN PRN Reason: Pain Pantoprazole Sodium (Protonix Iv) 40 mg IV Q12HR [facility] Last Admin: 03/04/19 08:53 Dose: 40 mg Senna (Senna) 8.6 mg PO BID [facility] Last Admin: 03/03/19 21:26 Dose: 8.6 mg Triamcinolone Acetonide (Triamcinolone Acetonide 0.1% Crm) 0 gm TOP DAILY [facility] Zolpidem Tartrate (Ambien) 5 mg PO BEDTIME PRN PRN Reason: Sleep - Exam Quality Assessment: Supplemental Oxygen General: Alert, Cooperative, No Acute Distress, Other (looks much older thna stated age) HEENT: Pupils Equal, Pupils Reactive, EOMI, Mucous Membr. Moist/[place] Neck: Supple Lungs: Normal Respiratory Effort, Decreased Breath Sounds, Crackles, Rhonchi Cardiovascular: Irregular Rhythm GI/Abdominal Exam: Normal Bowel Sounds, Soft, Non-Tender, No Organomegaly, No Distention, No Abnormal Bruit (Male) Exam: Other (indwelling scott catheter) Back Exam: Normal Inspection, Decreased Range of Motion Extremities: Normal Inspection, Normal Range of Motion, Non-Tender, Normal Capillary Refill, Other (improved peripheral edema) Peripheral Pulses: 1+: Dorsalis Pedis (L), Dorsalis Pedis (R) Skin: Warm, Dry, Intact, Ecchymosis Neurological: No New Focal Deficit (limite but grossly intact). No: Normal Gait Psy/Mental Status: Alert, Normal Affect, Normal Mood - Problem List Review Problem List Initiated/Reviewed/Updated: Yes - My Orders Last 24 Hours: My Active Orders 03/04/19 09:00 Dorzolamide [Trusopt 2% Ophth Soln] 0 ml EYEBOTH BID Nicotine [Habitrol] 21 mg TRDERM Q72H Patient's Own Medication [Ptom] 0 each INH QID Patient's Own Medication [Ptom] 0 each TOP TID Remove Patch 1 ea TRDERM Q72H Rivaroxaban [Xarelto] 20 mg PO DAILY Triamcinolone Acetonide [Triamcinolone Acetonide 0.1% Crm] 0 gm TOP BID hydroCHLOROthiazide 12.5 mg PO DAILY 03/04/19 10:27 Consult to Dietary [Consult to Steam Conditioner Filling] [CONS] Routine 03/04/19 17:33 Urinary Catheter Assessment [RC] 04,10,16,22 03/04/19 17:45 Insert Scott Catheter [Insert Urinary Catheter] [OM.PC] Q24H 03/04/19 21:00 Azithromycin [Zithromax] 500 mg Sodium Chloride 0.9% [Normal Saline] 250 ml IV Q24H Latanoprost [Xalatan 0.005% Ophth Soln] 0 ml EYEBOTH BEDTIME Loratadine [Claritin] 10 mg PO BEDTIME Melatonin 6 mg PO BEDTIME Pantoprazole [ProTONIX] 40 mg PO Q12H 03/04/19 21:28 CULTURE SPUTUM + SMEAR [RM] Routine 03/04/19 22:00 cefTRIAXone [Rocephin] 1 gm Sodium Chloride 0.9% [Normal Saline] 100 ml IV Q24H 03/05/19 05:58 CBC WITH AUTO DIFF [HEME] AM 03/05/19 Lunch National Dysphagia Diet [DIET] 03/06/19 05:11 BASIC METABOLIC PANEL,BMP [CHEM] AM CBC WITH AUTO DIFF [HEME] AM MAGNESIUM [CHEM] AM 03/07/19 05:11 BASIC METABOLIC PANEL,BMP [CHEM] AM CBC WITH AUTO DIFF [HEME] AM MAGNESIUM [CHEM] AM 03/08/19 05:11 BASIC METABOLIC PANEL,BMP [CHEM] AM CBC WITH AUTO DIFF [HEME] AM MAGNESIUM [CHEM] AM - Plan Plan:: Assessment: Acute: Respiratory Distress Syndrome - Meets criteria - CXR shows diffuse bilateral opacities - He is DNR/DNI - Continue IV Azithromycin/Rocephin Daily - IV 125 mg Solumedrol Q6H Heart Failure - Carries a hx/o HF with Reduced EF 45-50% ([facility] - Had [place] in 1992 with balloon angioplasty in [place] - Statin was discontinued due to little benefit [facility] - ProBNP of 8345 - Received diuretics in ED - Heart failure regimen: diuretics, salt/fluids restriction, Is/Os and daily weight check - IV Lasix daily and HCTX 12.5 mg po QHS Respiratory Failure - Acute on chronic - Has hx/o COPD with baseline supplemental O2 of 2-3 L - ABG showed hypoxemia with pH of 7.43 and pO2 of 58 - He is fluctuating bet 4-5 liters on simple mask - Continue NIPPV; he is DNR/DNI - Low dose Morphine for symptomatic control Anemia - Hgb of 8.0-->7.6-->6.7-->7.6 - No baseline for comparison - Has hx/o normocytic anemia - On Xarelto for stroke prophylaxis - Heme-occult test - Monitor H/H End of Life Care - Offered comfort measures; daughter not receptive at this time - SW to discuss Hospice/Palliative care services - Overall prognosis is extremely poor Resolved: S/p Hypomagnesemia - Mg of 1.6--> 2.2--> 1.8 - 2/2 inadequate intake - Replete and monitor Chronic: Chronic Hypoxic Respiratory Failure 2-3 L of NC, COPD, HF with Reduced EF 45-50%, Normocytic Anemia, Cardiomyopathy non PM Candidate, Chronic Atrial Fibrillation on Xarelto, CAD, DM2, Dysphagia, Urinary Retention, Chronic Encephalopathy, Hx/o Dermatitis, Hx/o Melanoma In Situ, and Hx/o Cardiogenic Shock 2/2 Bradycardia Plan: He did much better last night but clinically he is about the same. Labored breathing, dyspneic and not well rested. Routine AM labs AHA/ADA diet Accu-check QID with ISS Repeat chest x-ray in AM Heart failure regime Fall precautions RT/OT/PT to asses and treat [facility] Continue NIPPV SW/CM for d/c planning Code status: DNR/DNI Additional orders as above Prognosis serious-poor Patient was offered to go to a [place] facility in [place] but refused it.
[2019-03-05] MEDS: IPRATROPIUM INH SCH ×4 (09:30→21:10)
[2019-03-05] MEDS: ALBUTEROL INH SCH ×4 (09:30→21:10)
[2019-03-05] MEDS ORDERED: Furosemide 20 MG/2 ML VIAL IVPUSH ONE ×2 (12:09→22:59)
[2019-03-05] MEDS: Albuterol/Ipratropium 3.0-0.5 MG/3 ML Neb Soln NEB PRN ×2 (13:56→19:53)
[2019-03-05] MEDS: LORazepam 2 MG/ML SDV IV PRN (17:25)
[2019-03-05] MEDS: Loratadine 10 MG Tab PO SCH (22:47)
[2019-03-05] MEDS: Melatonin 3 MG Tab PO SCH (22:48)
[2019-03-05] MEDS: Acetaminophen/HYDROcodone 325-5 MG Tab PO PRN (22:59)
[2019-03-05] MEDS: Azithromycin 500 MG in Sodium Chloride 0.9% 250 ML IV SCH (23:38)
[2019-03-05] MEDS: Latanoprost 0.005% Ophth Soln 2.5 ML Bottle EYEBOTH SCH (23:38)
[2019-03-05] MEDS: cefTRIAXone 1 GM in Sodium Chloride 0.9% 100 ML IV SCH (23:40)
[2019-03-06] MEDS: methylPREDNISolone Sodium Succinate 125 MG/2 ML SDV IVPUSH SCH ×5 (00:03→22:28)
[2019-03-06] MEDS: Morphine 2 MG/ML Syringe IVPUSH PRN (02:32)
[2019-03-06] MEDS: Levothyroxine 25 MCG Tab PO SCH (05:10)
[2019-03-06] MEDS: LORazepam 2 MG/ML SDV IV PRN ×3 (06:29→23:55)
--- NOTE | 2019-03-06 07:42 | CR ---
Chest: Portable view of the chest was obtained. Comparison: Prior chest x-ray of 03/04/19. Diffuse increased markings are noted on both sides of the chest with cardiomegaly. Findings appear slightly less dense centrally when compared to most recent exam. Bony structures are grossly intact. Impression: 1. Diffuse increased lung markings. Findings are slightly less prominent than on most recent exam. No other change is seen. 2. Stable cardiomegaly. Diagnostic code #3
[2019-03-06] MEDS: IPRATROPIUM INH SCH ×4 (08:08→20:27)
[2019-03-06] MEDS: ALBUTEROL INH SCH ×4 (08:08→20:27)
[2019-03-06] MEDS: Albuterol/Ipratropium 3.0-0.5 MG/3 ML Neb Soln NEB PRN ×3 (08:08→20:22)
[2019-03-06] MEDS: Insulin Lispro 100 Units/ML 3 ML Vial SUBCUT SCH ×4 (08:37→22:33)
[2019-03-06] MEDS: Acetaminophen 325 MG Tab PO SCH ×3 (08:39→22:28)
[2019-03-06] MEDS: Pantoprazole 40 MG Tab.CR PO SCH ×2 (08:39→22:28)
[2019-03-06] MEDS: Magnesium Oxide 400 MG Tab PO SCH ×2 (08:40→22:26)
[2019-03-06] MEDS: Metoprolol Tartrate 25 MG Tab PO SCH ×2 (08:40→22:26)
[2019-03-06] MEDS: Furosemide 20 MG/2 ML VIAL IVPUSH SCH (08:44)
[2019-03-06] MEDS: Dorzolamide 2% Ophth Soln 10 ML Bottle EYEBOTH SCH ×2 (08:48→22:43)
[2019-03-06] MEDS: Triamcinolone Acetonide 0.1% Crm 15 GM Tube TOP SCH ×2 (08:49→22:45)
[2019-03-06] MEDS: HYDROCORTISONE ACETATE TOP SCH ×3 (08:50→22:47)
[2019-03-06] MEDS ORDERED: Rivaroxaban 10 MG Tab PO SCH (09:00)
--- NOTE | 2019-03-06 10:28 | PCM.PN ---
- General Info Date of Service: 03/06/19 Admission Dx/Problem (Free Text): Admission Diagnosis/Problem Admission Diagnosis/Problem Congestive heart failure Subjective Update: Follow Up Functional Status: Reports: Pain Controlled, Tolerating Diet, Urinating. Denies : Ambulating, New Symptoms - Review of Systems General: Reports: Weakness, Fatigue, Malaise. Denies: Fever, Chills HEENT: Denies: No Symptoms Pulmonary: Reports: Shortness of Breath. Denies: Cough, Sputum Cardiovascular: Reports: Dyspnea on Exertion, Orthopnea, Edema. Denies: Chest Pain, Lightheadedness Gastrointestinal: Denies: Abdominal Pain, Nausea, Vomiting Genitourinary: Reports: No Symptoms Musculoskeletal: Reports: No Symptoms Skin: Reports: Bruising. Denies: Diaphoresis Neurological: Reports: Difficulty Walking, Weakness, Gait Disturbance. Denies: Confusion Psychiatric: Denies: Anxiety, Hallucinations, Homicidal Ideation Systems Review Comment:: He was not compliant with his NIPPV. He felt his breathing was breathing and did not need it. - Patient Data Vitals - Most Recent: Last Vital Signs Temp 36.3 C 03/06/19 04:04 Pulse 84 03/06/19 08:40 Resp 24 H 03/06/19 04:04 BP 145/77 H 03/06/19 08:40 Pulse Ox 95 03/06/19 08:08 Weight - Most Recent: 81.737 kg I&O - Last 24 Hours: Intake & Output 03/05/19 03/06/19 03/06/19 22:59 06:59 14:59 Intake Total 760 750 Output Total 700 1450 Balance 60 -700 Lab Results Last 24 Hours: Laboratory Results - last 24 hr 03/05/19 03/05/19 03/05/19 Range/Units 10:58 15:25 17:09 WBC 6.39 (4.23-9.07) K/mm3 RBC 2.80 L (4.63-6.08) M/mm3 Hgb 7.6 L (13.7-17.5) gm/L Hct 26.0 L (40.1-51.0) % MCV 92.9 H (79.0-92.2) fl MCH 27.1 (25.7-32.2) pg MCHC 29.2 L (32.2-35.5) g/dl RDW Std Deviation 59.0 H (35.1-43.9) fL Plt Count 264 (163-337) K/mm3 MPV 9.2 L (9.4-12.3) fl Neut % (Auto) 50.6 (34.0-67.9) % Lymph % (Auto) 28.2 (21.8-53.1) % [place] % (Auto) 12.2 (5.3-12.2) % Eos % (Auto) 8.1 H (0.8-7.0) Baso % (Auto) 0.6 (0.1-1.2) % Neut # (Auto) 3.23 (1.78-5.38) K/mm3 Lymph # (Auto) 1.80 (1.32-3.57) K/mm3 [place] # (Auto) 0.78 (0.30-0.82) K/mm3 Eos # (Auto) 0.52 (0.04-0.54) K/mm3 Baso # (Auto) 0.04 (0.01-0.08) K/mm3 Manual Slide Review Abnormal smear Sodium (136-145) mEq/L Potassium (3.5-5.1) mEq/L Chloride (98-107) mEq/L Carbon Dioxide (21-32) mEq/L Anion Gap (5-15) BUN (7-18) mg/dL Creatinine (0.7-1.3) mg/dL Est Cr Clr Drug Dosing mL/min Estimated GFR (MDRD) (>60) mL/min BUN/Creatinine Ratio (14-18) Glucose (83-115) mg/dL POC Glucose 172 H 96 (83-110) mg/dL Calcium (8.5-10.1) mg/dL Magnesium (1.8-2.4) mg/dl NT-Pro-B Natriuret Pep (0-450) pg/mL 03/05/19 03/06/19 03/06/19 Range/Units 23:04 05:18 05:18 WBC 6.84 (4.23-9.07) K/mm3 RBC 3.08 L (4.63-6.08) M/mm3 Hgb 8.2 L (13.7-17.5) gm/L Hct 28.2 L (40.1-51.0) % MCV 91.6 (79.0-92.2) fl MCH 26.6 (25.7-32.2) pg MCHC 29.1 L (32.2-35.5) g/dl RDW Std Deviation 58.3 H (35.1-43.9) fL Plt Count 265 (163-337) K/mm3 MPV 10.0 (9.4-12.3) fl Neut % (Auto) 88.9 H (34.0-67.9) % Lymph % (Auto) 9.5 L (21.8-53.1) % [place] % (Auto) 1.0 L (5.3-12.2) % Eos % (Auto) 0.4 L (0.8-7.0) Baso % (Auto) 0.1 (0.1-1.2) % Neut # (Auto) 6.07 H (1.78-5.38) K/mm3 Lymph # (Auto) 0.65 L (1.32-3.57) K/mm3 [place] # (Auto) 0.07 L (0.30-0.82) K/mm3 Eos # (Auto) 0.03 L (0.04-0.54) K/mm3 Baso # (Auto) 0.01 (0.01-0.08) K/mm3 Manual Slide Review Abnormal smear Sodium 137 (136-145) mEq/L Potassium 4.2 (3.5-5.1) mEq/L Chloride 99 (98-107) mEq/L Carbon Dioxide 31 (21-32) mEq/L Anion Gap 11.2 (5-15) BUN 27 H (7-18) mg/dL Creatinine 1.2 (0.7-1.3) mg/dL Est Cr Clr Drug Dosing 56.65 mL/min Estimated GFR (MDRD) 59 (>60) mL/min BUN/Creatinine Ratio 22.5 H (14-18) Glucose 151 H (83-115) mg/dL POC Glucose 113 H (83-110) mg/dL Calcium 9.3 (8.5-10.1) mg/dL Magnesium 1.9 (1.8-2.4) mg/dl NT-Pro-B Natriuret Pep (0-450) pg/mL 03/06/19 03/06/19 Range/Units 05:18 06:14 WBC (4.23-9.07) K/mm3 RBC (4.63-6.08) M/mm3 Hgb (13.7-17.5) gm/L Hct (40.1-51.0) % MCV (79.0-92.2) fl MCH (25.7-32.2) pg MCHC (32.2-35.5) g/dl RDW Std Deviation (35.1-43.9) fL Plt Count (163-337) K/mm3 MPV (9.4-12.3) fl Neut % (Auto) (34.0-67.9) % Lymph % (Auto) (21.8-53.1) % [place] % (Auto) (5.3-12.2) % Eos % (Auto) (0.8-7.0) Baso % (Auto) (0.1-1.2) % Neut # (Auto) (1.78-5.38) K/mm3 Lymph # (Auto) (1.32-3.57) K/mm3 [place] # (Auto) (0.30-0.82) K/mm3 Eos # (Auto) (0.04-0.54) K/mm3 Baso # (Auto) (0.01-0.08) K/mm3 Manual Slide Review Sodium (136-145) mEq/L Potassium (3.5-5.1) mEq/L Chloride (98-107) mEq/L Carbon Dioxide (21-32) mEq/L Anion Gap (5-15) BUN (7-18) mg/dL Creatinine (0.7-1.3) mg/dL Est Cr Clr Drug Dosing mL/min Estimated GFR (MDRD) (>60) mL/min BUN/Creatinine Ratio (14-18) Glucose (83-115) mg/dL POC Glucose 197 H (83-110) mg/dL Calcium (8.5-10.1) mg/dL Magnesium (1.8-2.4) mg/dl NT-Pro-B Natriuret Pep 4202 H (0-450) pg/mL Carlos Results Last 24 Hours: Microbiology 03/03/19 20:30 Aerobic Blood Culture - Preliminary Blood - Venous - Lab Draw NO GROWTH AFTER 2 DAYS Anaerobic Blood Culture - Preliminary NO GROWTH AFTER 2 DAYS 03/03/19 18:17 Aerobic Blood Culture - Preliminary Blood - Venous NO GROWTH AFTER 2 DAYS Anaerobic Blood Culture - Preliminary NO GROWTH AFTER 2 DAYS Med Orders - Current: Current Medications Acetaminophen (Tylenol) 650 mg PO TID [facility] Last Admin: 03/06/19 08:39 Dose: 650 mg Hydrocodone Bitart/Acetaminophen ([place] 325-5 Mg) 1 tab PO Q4H PRN PRN Reason: Pain (moderate 4-6) Last Admin: 03/05/19 22:59 Dose: 1 tab Albuterol/Ipratropium (Duoneb 3.0-0.5 Mg/3 Ml) 3 ml NEB Q4H PRN PRN Reason: Shortness Of Breath/wheezing Last Admin: 03/06/19 08:08 Dose: 3 ml Bisacodyl (Dulcolax) 5 mg PO DAILY PRN PRN Reason: Constipation Dextrose/Water (Dextrose 50% In Water) 50 ml IVPUSH ASDIRECTED PRN PRN Reason: Hypoglycemia Dorzolamide HCl (Trusopt 2% Ophth Soln) 0 ml EYEBOTH BID [facility] Last Admin: 03/06/19 08:48 Dose: 1 drop Furosemide (Lasix) 20 mg IVPUSH DAILY [facility] Last Admin: 03/06/19 08:44 Dose: 20 mg Hydrochlorothiazide (Hydrochlorothiazide) 12.5 mg PO BEDTIME [facility] Last Admin: 03/05/19 22:47 Dose: 12.5 mg Hydromorphone HCl (Dilaudid) 0.5 mg IVPUSH Q2H PRN PRN Reason: Pain (severe 7-10) Promethazine HCl 6.25 mg/ (Sodium Chloride) 50.25 mls @ 100 mls/hr IV Q6H PRN PRN Reason: Nausea/Vomiting Azithromycin 500 mg/ Sodium (Chloride) 250 mls @ 250 mls/hr IV Q24H [facility] Last Admin: 03/05/19 23:38 Dose: 250 mls/hr Ceftriaxone Sodium 1 gm/ (Sodium Chloride) 100 mls @ 200 mls/hr IV Q24H [facility] Last Admin: 03/05/19 23:40 Dose: 200 mls/hr Insulin Human Lispro (Humalog) 0 unit SUBCUT QIDACANDBED [facility]; Protocol Last Admin: 03/06/19 08:37 Dose: Not Given Latanoprost (Xalatan 0.005% Ophth Soln) 0 ml EYEBOTH BEDTIME [facility] Last Admin: 03/05/19 23:38 Dose: 1 drop Levothyroxine Sodium (Levothyroxine) 25 mcg PO ACBREAKFAST [facility] Last Admin: 03/06/19 05:10 Dose: 25 mcg Loratadine (Claritin) 10 mg PO BEDTIME [facility] Last Admin: 03/05/19 22:47 Dose: 10 mg Lorazepam (Ativan) 0.25 mg IV Q6H PRN PRN Reason: Anxiety Last Admin: 03/06/19 06:29 Dose: 0.25 mg Magnesium Oxide (Magnesium Oxide) 400 mg PO BID [facility] Last Admin: 03/06/19 08:40 Dose: 400 mg Melatonin (Melatonin) 6 mg PO BEDTIME [facility] Last Admin: 03/05/19 22:48 Dose: 6 mg Methylprednisolone Sodium Succinate (Solu-Medrol) 125 mg IVPUSH Q6H [facility] Last Admin: 03/06/19 05:11 Dose: 125 mg Metoprolol Tartrate (Lopressor) 12.5 mg PO BID [facility] Last Admin: 03/06/19 08:40 Dose: 12.5 mg Morphine Sulfate (Morphine) 1 mg IVPUSH Q4H PRN PRN Reason: dyspnea/severe chest pain Last Admin: 03/06/19 02:32 Dose: 1 mg Ondansetron HCl (Zofran) 4 mg IV Q6H PRN PRN Reason: Nausea/Vomiting Pantoprazole Sodium (Protonix) 40 mg PO Q12H [facility] Last Admin: 03/06/19 08:39 Dose: 40 mg Albuterol/Ipratropium Pt's Own Medication 0 each INH QID [facility] Last Admin: 03/06/19 08:08 Dose: Not Given Hydrocortisone Acetate [Vanicream Hc] 0 each TOP TID [facility] Last Admin: 03/06/19 08:50 Dose: 1 each Senna (Senna) 8.6 mg PO DAILY PRN PRN Reason: Constipation Senna/Docusate Sodium (Senna Plus) 1 tab PO BID PRN PRN Reason: Constipation Sodium Chloride (Saline Flush) 10 ml FLUSH ASDIRECTED PRN PRN Reason: Keep Vein Open Last Admin: 03/03/19 17:04 Dose: 10 ml Triamcinolone Acetonide (Triamcinolone Acetonide 0.1% Crm) 0 gm TOP BID [facility] Last Admin: 03/06/19 08:49 Dose: 1 applic Discontinued Medications Acetaminophen (Tylenol) 650 mg PO ONETIME ONE Stop: 03/03/19 17:04 Last Admin: 03/03/19 17:10 Dose: 650 mg Albuterol/Ipratropium (Duoneb 3.0-0.5 Mg/3 Ml) 3 ml NEB Q6H PRN PRN Reason: Dyspnea Last Admin: 03/03/19 20:56 Dose: 3 ml Docusate Sodium (Colace) 100 mg PO BID PRN PRN Reason: Constipation Furosemide (Lasix) 60 mg IVPUSH NOW ONE Stop: 03/03/19 17:00 Last Admin: 03/03/19 17:04 Dose: 60 mg Furosemide (Lasix) 10 mg IVPUSH NOW ONE Stop: 03/03/19 23:55 Last Admin: 03/04/19 00:12 Dose: 10 mg Furosemide (Lasix) 10 mg IVPUSH NOW ONE Stop: 03/04/19 08:46 Last Admin: 03/04/19 10:50 Dose: 10 mg Furosemide (Lasix) 20 mg IVPUSH ONETIME ONE Stop: 03/04/19 15:58 Last Admin: 03/04/19 17:43 Dose: 20 mg Furosemide (Lasix) 20 mg IVPUSH ONETIME ONE Stop: 03/05/19 12:10 Last Admin: 03/05/19 12:46 Dose: 20 mg Furosemide (Lasix) 20 mg IVPUSH ONETIME ONE Stop: 03/05/19 23:00 Last Admin: 03/06/19 00:03 Dose: 20 mg Hydrochlorothiazide (Hydrochlorothiazide) 12.5 mg PO DAILY [facility] Last Admin: 03/05/19 08:14 Dose: 12.5 mg Ceftriaxone Sodium 2 gm/ (Sodium Chloride) 100 mls @ 200 mls/hr IV ONETIME ONE Stop: 03/03/19 18:43 Last Admin: 03/03/19 18:25 Dose: Not Given Ceftriaxone Sodium 2 gm/ (Sodium Chloride) 100 mls @ 200 mls/hr IV ONETIME ONE Stop: 03/03/19 18:53 Last Admin: 03/03/19 18:56 Dose: 200 mls/hr Magnesium Sulfate 2 gm/ Premix 50 mls @ 25 mls/hr IV NOW STA Stop: 03/04/19 00:58 Last Admin: 03/03/19 23:42 Dose: 25 mls/hr Insulin Human Lispro (Humalog) 0 unit SUBCUT QIDACANDBED PRN; Protocol PRN Reason: Hyperglycemia Melatonin (Melatonin) 6 mg PO DAILY [facility] Miscellaneous Information (Remove Patch) 1 ea TRDERM Q72H [facility] Last Admin: 03/04/19 10:53 Dose: Not Given Nicotine (Habitrol) 21 mg TRDERM Q72H [facility] Last Admin: 03/04/19 10:53 Dose: Not Given Non-Formulary Medication (Acetaminophen) 1,000 mg PO TID PRN PRN Reason: Pain Pantoprazole Sodium (Protonix Iv) 40 mg IV Q12HR [facility] Last Admin: 03/04/19 08:53 Dose: 40 mg Rivaroxaban (Xarelto) 20 mg PO DAILY [facility] Last Admin: 03/05/19 08:15 Dose: 20 mg Rivaroxaban (Xarelto) 20 mg PO DAILY [facility] Senna (Senna) 8.6 mg PO BID [facility] Last Admin: 03/03/19 21:26 Dose: 8.6 mg Triamcinolone Acetonide (Triamcinolone Acetonide 0.1% Crm) 0 gm TOP DAILY [facility] Zolpidem Tartrate (Ambien) 5 mg PO BEDTIME PRN PRN Reason: Sleep - Exam Quality Assessment: Supplemental Oxygen General: Alert, Oriented, Cooperative, No Acute Distress HEENT: Pupils Equal, Pupils Reactive, EOMI, Mucous Membr. Moist/[place]: Supple Lungs: Normal Respiratory Effort, Decreased Breath Sounds, Crackles, Rhonchi Cardiovascular: Irregular Rhythm GI/Abdominal Exam: Normal Bowel Sounds, Soft, Non-Tender, No Organomegaly, No Distention, No Abnormal Bruit, No Mass (Male) Exam: Deferred Back Exam: Normal Inspection, Decreased Range of Motion Extremities: Normal Inspection, Normal Range of Motion, Non-Tender, Normal Capillary Refill, Limited Range of Motion, Other (skin discoloration and pitting edema but improved) Peripheral Pulses: 1+: Dorsalis Pedis (L), Dorsalis Pedis (R) Skin: Warm, Dry, Intact Neurological: No New Focal Deficit. No: Normal Gait Psy/Mental Status: Alert, Normal Affect, Normal Mood - Problem List Review Problem List Initiated/Reviewed/Updated: Yes - My Orders Last 24 Hours: My Active Orders 03/05/19 14:37 Hemoccult [OCCULT BLOOD DIAGNOSTIC] [OP] Routine 03/05/19 21:00 hydroCHLOROthiazide 12.5 mg PO BEDTIME 03/05/19 23:00 methylPREDNISolone Sod Succ [Solu-MEDROL] 125 mg IVPUSH Q6H 03/05/19 Lunch National Dysphagia Diet [DIET] 03/06/19 09:00 Furosemide [Lasix] 20 mg IVPUSH DAILY Magnesium Oxide 400 mg PO BID 03/07/19 05:00 PRO B-TYPE NATRIUR PEPT,BNPPRO [CHEM] DAILY 03/07/19 05:11 BASIC METABOLIC PANEL,BMP [CHEM] AM CBC WITH AUTO DIFF [HEME] AM MAGNESIUM [CHEM] AM 03/08/19 05:00 PRO B-TYPE NATRIUR PEPT,BNPPRO [CHEM] DAILY 03/08/19 05:11 BASIC METABOLIC PANEL,BMP [CHEM] AM CBC WITH AUTO DIFF [HEME] AM MAGNESIUM [CHEM] AM - Plan Plan:: Assessment: Acute: Heart Failure - Carries a hx/o HF with Reduced EF 45-50% ([facility] - Had [place] in 1992 with balloon angioplasty in [place] - Statin was discontinued due to little benefit [facility] - ProBNP of 8345-->4202 - Received diuretics in ED - Repeat CXR this AM: is about the same - Heart failure regimen: diuretics, salt/fluids restriction, Is/Os and daily weight check Respiratory Failure - Acute on chronic - Has hx/o COPD with baseline supplemental O2 of 2-3 L - ABG shows hypoxemia with pH of 7.43 and pO2 of 58 - IV Solumedrol 125 mg IVP Q6H - He was 6-5 liters; simple mask - Continue NIPPV; but treatment in inconsistent CAP - Had aspiration pneumonia which lead to bacteremia when he was in [place] - Has baseline dysphagia - IV Azithromycin and Rocephin daily - CXR shows atelectasis Anemia - Hgb of 8.0--> 8.2 - No baseline for comparison - Has hx/o normocytic anemia - On Xarelto for stroke prophylaxis - Heme-occult test - Monitor H/H DM2 - BS is not controlled - Accu-check QID with ISS- changed to high dose - He is getting Solumedrol Q6H - Lantus 10 units SubQ BID [facility] - He is at terminal stage - He is not receptive to comfort measures - SW/CM to educate Hospice/Palliative Care services Resolved: S/p Hypomagnesemia - Mg of 1.6--> 1.9 - 2/2 inadequate intake - Replete and monitor Chronic: Chronic Hypoxic Respiratory Failure 2-3 L of NC, COPD, HF with Reduced EF 45-50%, Normocytic Anemia, Cardiomyopathy non PM Candidate, Chronic Atrial Fibrillation on Xarelto, CAD, Dysphagia, Urinary Retention, Chronic Encephalopathy, Hx/o Dermatitis, Hx/o Melanoma In Situ, and Hx/o Cardiogenic Shock 2/2 Bradycardia Plan: He is about the same with minimal clinical improvement Routine AM labs AHA/ADA diet Accu-check QID with ISS Heart failure regime Fall precautions RT/OT/PT to asses and treat [facility] He was offered Hospice/ Palliative Care on discharge Continue NIPPV SW/CM for d/c planning Code status: DNR/DNI Additional orders as above Prognosis remains serious-poor Met with 2 daughters and again informed them about his overall poor prognosis and should consider comfort measures at this point. Offered transfer but may have difficulty shipping him out due to his terminal stage.
[2019-03-06] MEDS: Melatonin 3 MG Tab PO SCH (22:26)
[2019-03-06] MEDS: Hydrochlorothiazide 12.5 MG Cap PO SCH (22:28)
[2019-03-06] MEDS: Loratadine 10 MG Tab PO SCH (22:28)
[2019-03-06] MEDS: Insulin Glarg,Human.Rec.Analog 100 UNIT/ML ML SUBCUT SCH (22:31)
[2019-03-06] MEDS: cefTRIAXone 1 GM in Sodium Chloride 0.9% 100 ML IV SCH (22:31)
[2019-03-06] MEDS: Azithromycin 500 MG in Sodium Chloride 0.9% 250 ML IV SCH (22:31)
[2019-03-06] MEDS: Latanoprost 0.005% Ophth Soln 2.5 ML Bottle EYEBOTH SCH (22:39)
[2019-03-07] MEDS: methylPREDNISolone Sodium Succinate 125 MG/2 ML SDV IVPUSH SCH ×3 (06:30→17:38)
[2019-03-07] MEDS: Levothyroxine 25 MCG Tab PO SCH (06:30)
--- NOTE | 2019-03-07 07:22 | PCM.PN ---
- General Info Date of Service: 03/07/19 Admission Dx/Problem (Free Text): Admission Diagnosis/Problem Admission Diagnosis/Problem Congestive heart failure Subjective Update: Follow Up Functional Status: Reports: Pain Controlled, Tolerating Diet, Urinating. Denies : Ambulating - Review of Systems General: Reports: Fatigue. Denies: Fever, Chills HEENT: Reports: No Symptoms Pulmonary: Reports: Shortness of Breath. Denies: Cough Cardiovascular: Denies: Chest Pain, Dyspnea on Exertion, Lightheadedness Gastrointestinal: Denies: Abdominal Pain, Nausea, Vomiting Genitourinary: Reports: No Symptoms Musculoskeletal: Reports: No Symptoms Skin: Reports: Bruising. Denies: Diaphoresis Neurological: Reports: Difficulty Walking, Weakness, Gait Disturbance. Denies: Confusion Psychiatric: Denies: Depression, Anxiety, Agitation, Hallucinations Systems Review Comment:: He rested well all night and kept his NIPPV all night. He feels better this morning and his breathing has improved. He now weighs 180 lbs. He has no complaints except for the TV. - Patient Data Vitals - Most Recent: Last Vital Signs Temp 36.4 C 03/07/19 04:20 Pulse 47 L 03/07/19 04:20 Resp 15 03/07/19 04:20 BP 151/90 H 03/07/19 04:20 Pulse Ox 93 L 03/07/19 04:20 Weight - Most Recent: 81.737 kg I&O - Last 24 Hours: Intake & Output 03/06/19 03/07/19 03/07/19 22:59 06:59 14:59 Intake Total 590 350 Output Total 975 Balance -385 350 Lab Results Last 24 Hours: Laboratory Results - last 24 hr 03/06/19 03/06/19 03/06/19 Range/Units 05:18 05:18 05:18 WBC 6.84 (4.23-9.07) K/mm3 RBC 3.08 L (4.63-6.08) M/mm3 Hgb 8.2 L (13.7-17.5) gm/L Hct 28.2 L (40.1-51.0) % MCV 91.6 (79.0-92.2) fl MCH 26.6 (25.7-32.2) pg MCHC 29.1 L (32.2-35.5) g/dl RDW Std Deviation 58.3 H (35.1-43.9) fL Plt Count 265 (163-337) K/mm3 MPV 10.0 (9.4-12.3) fl Neut % (Auto) 88.9 H (34.0-67.9) % Lymph % (Auto) 9.5 L (21.8-53.1) % [place] % (Auto) 1.0 L (5.3-12.2) % Eos % (Auto) 0.4 L (0.8-7.0) Baso % (Auto) 0.1 (0.1-1.2) % Neut # (Auto) 6.07 H (1.78-5.38) K/mm3 Lymph # (Auto) 0.65 L (1.32-3.57) K/mm3 [place] # (Auto) 0.07 L (0.30-0.82) K/mm3 Eos # (Auto) 0.03 L (0.04-0.54) K/mm3 Baso # (Auto) 0.01 (0.01-0.08) K/mm3 Manual Slide Review Abnormal smear Sodium 137 (136-145) mEq/L Potassium 4.2 (3.5-5.1) mEq/L Chloride 99 (98-107) mEq/L Carbon Dioxide 31 (21-32) mEq/L Anion Gap 11.2 (5-15) BUN 27 H (7-18) mg/dL Creatinine 1.2 (0.7-1.3) mg/dL Est Cr Clr Drug Dosing 56.65 mL/min Estimated GFR (MDRD) 59 (>60) mL/min BUN/Creatinine Ratio 22.5 H (14-18) Glucose 151 H (83-115) mg/dL POC Glucose (83-110) mg/dL Calcium 9.3 (8.5-10.1) mg/dL Magnesium 1.9 (1.8-2.4) mg/dl NT-Pro-B Natriuret Pep 4202 H (0-450) pg/mL 03/06/19 03/06/19 03/06/19 Range/Units 12:29 17:14 22:24 WBC (4.23-9.07) K/mm3 RBC (4.63-6.08) M/mm3 Hgb (13.7-17.5) gm/L Hct (40.1-51.0) % MCV (79.0-92.2) fl MCH (25.7-32.2) pg MCHC (32.2-35.5) g/dl RDW Std Deviation (35.1-43.9) fL Plt Count (163-337) K/mm3 MPV (9.4-12.3) fl Neut % (Auto) (34.0-67.9) % Lymph % (Auto) (21.8-53.1) % [place] % (Auto) (5.3-12.2) % Eos % (Auto) (0.8-7.0) Baso % (Auto) (0.1-1.2) % Neut # (Auto) (1.78-5.38) K/mm3 Lymph # (Auto) (1.32-3.57) K/mm3 [place] # (Auto) (0.30-0.82) K/mm3 Eos # (Auto) (0.04-0.54) K/mm3 Baso # (Auto) (0.01-0.08) K/mm3 Manual Slide Review Sodium (136-145) mEq/L Potassium (3.5-5.1) mEq/L Chloride (98-107) mEq/L Carbon Dioxide (21-32) mEq/L Anion Gap (5-15) BUN (7-18) mg/dL Creatinine (0.7-1.3) mg/dL Est Cr Clr Drug Dosing mL/min Estimated GFR (MDRD) (>60) mL/min BUN/Creatinine Ratio (14-18) Glucose (83-115) mg/dL POC Glucose 212 H 210 H 241 H (83-110) mg/dL Calcium (8.5-10.1) mg/dL Magnesium (1.8-2.4) mg/dl NT-Pro-B Natriuret Pep (0-450) pg/mL 03/07/19 Range/Units 05:56 WBC 8.10 (4.23-9.07) K/mm3 RBC 2.75 L (4.63-6.08) M/mm3 Hgb 7.4 L (13.7-17.5) gm/L Hct 25.3 L (40.1-51.0) % MCV 92.0 (79.0-92.2) fl MCH 26.9 (25.7-32.2) pg MCHC 29.2 L (32.2-35.5) g/dl RDW Std Deviation 56.8 H (35.1-43.9) fL Plt Count 250 (163-337) K/mm3 MPV 9.6 (9.4-12.3) fl Neut % (Auto) 83.2 H (34.0-67.9) % Lymph % (Auto) 14.0 L (21.8-53.1) % [place] % (Auto) 2.7 L (5.3-12.2) % Eos % (Auto) 0 L (0.8-7.0) Baso % (Auto) 0.0 L (0.1-1.2) % Neut # (Auto) 6.74 H (1.78-5.38) K/mm3 Lymph # (Auto) 1.13 L (1.32-3.57) K/mm3 [place] # (Auto) 0.22 L (0.30-0.82) K/mm3 Eos # (Auto) 0.00 L (0.04-0.54) K/mm3 Baso # (Auto) 0.00 L (0.01-0.08) K/mm3 Manual Slide Review Sodium (136-145) mEq/L Potassium (3.5-5.1) mEq/L Chloride (98-107) mEq/L Carbon Dioxide (21-32) mEq/L Anion Gap (5-15) BUN (7-18) mg/dL Creatinine (0.7-1.3) mg/dL Est Cr Clr Drug Dosing mL/min Estimated GFR (MDRD) (>60) mL/min BUN/Creatinine Ratio (14-18) Glucose (83-115) mg/dL POC Glucose (83-110) mg/dL Calcium (8.5-10.1) mg/dL Magnesium (1.8-2.4) mg/dl NT-Pro-B Natriuret Pep (0-450) pg/mL Carlos Results Last 24 Hours: Microbiology 03/03/19 20:30 Aerobic Blood Culture - Preliminary Blood - Venous - Lab Draw NO GROWTH AFTER 3 DAYS Anaerobic Blood Culture - Preliminary NO GROWTH AFTER 3 DAYS 03/03/19 18:17 Aerobic Blood Culture - Preliminary Blood - Venous NO GROWTH AFTER 3 DAYS Anaerobic Blood Culture - Preliminary NO GROWTH AFTER 3 DAYS Med Orders - Current: Current Medications Acetaminophen (Tylenol) 650 mg PO TID [facility] Last Admin: 03/06/19 22:28 Dose: 650 mg Hydrocodone Bitart/Acetaminophen (Vista 325-5 Mg) 1 tab PO Q4H PRN PRN Reason: Pain (moderate 4-6) Last Admin: 03/05/19 22:59 Dose: 1 tab Albuterol/Ipratropium (Duoneb 3.0-0.5 Mg/3 Ml) 3 ml NEB Q4H PRN PRN Reason: Shortness Of Breath/wheezing Last Admin: 03/06/19 20:22 Dose: 3 ml Bisacodyl (Dulcolax) 5 mg PO DAILY PRN PRN Reason: Constipation Dextrose/Water (Dextrose 50% In Water) 50 ml IVPUSH ASDIRECTED PRN PRN Reason: Hypoglycemia Dorzolamide HCl (Trusopt 2% Ophth Soln) 0 ml EYEBOTH BID [facility] Last Admin: 03/06/19 22:43 Dose: 1 drop Furosemide (Lasix) 20 mg IVPUSH DAILY [facility] Last Admin: 03/06/19 08:44 Dose: 20 mg Hydrochlorothiazide (Hydrochlorothiazide) 12.5 mg PO BEDTIME [facility] Last Admin: 03/06/19 22:28 Dose: 12.5 mg Hydromorphone HCl (Dilaudid) 0.5 mg IVPUSH Q2H PRN PRN Reason: Pain (severe 7-10) Last Admin: 03/07/19 00:07 Dose: 0.5 mg Promethazine HCl 6.25 mg/ (Sodium Chloride) 50.25 mls @ 100 mls/hr IV Q6H PRN PRN Reason: Nausea/Vomiting Azithromycin 500 mg/ Sodium (Chloride) 250 mls @ 250 mls/hr IV Q24H [facility] Last Admin: 03/06/19 22:31 Dose: 250 mls/hr Ceftriaxone Sodium 1 gm/ (Sodium Chloride) 100 mls @ 200 mls/hr IV Q24H [facility] Last Admin: 03/06/19 22:31 Dose: 200 mls/hr Insulin Glargine (Lantus) 10 unit SUBCUT BID [facility] Last Admin: 03/06/19 22:31 Dose: 10 units Insulin Human Lispro (Humalog) 0 unit SUBCUT QIDACANDBED [facility]; Protocol Last Admin: 03/06/19 22:33 Dose: 6 units Latanoprost (Xalatan 0.005% Ophth Soln) 0 ml EYEBOTH BEDTIME [facility] Last Admin: 03/06/19 22:39 Dose: 1 drop Levothyroxine Sodium (Levothyroxine) 25 mcg PO ACBREAKFAST [facility] Last Admin: 03/07/19 06:30 Dose: 25 mcg Loratadine (Claritin) 10 mg PO BEDTIME [facility] Last Admin: 03/06/19 22:28 Dose: 10 mg Lorazepam (Ativan) 0.25 mg IV Q6H PRN PRN Reason: Anxiety Last Admin: 03/06/19 23:55 Dose: 0.25 mg Magnesium Oxide (Magnesium Oxide) 400 mg PO BID [facility] Last Admin: 03/06/19 22:26 Dose: 400 mg Melatonin (Melatonin) 6 mg PO BEDTIME [facility] Last Admin: 03/06/19 22:26 Dose: 6 mg Methylprednisolone Sodium Succinate (Solu-Medrol) 125 mg IVPUSH Q6H [facility] Last Admin: 03/07/19 06:30 Dose: 125 mg Metoprolol Tartrate (Lopressor) 12.5 mg PO BID [facility] Last Admin: 03/06/19 22:26 Dose: 12.5 mg Morphine Sulfate (Morphine) 1 mg IVPUSH Q4H PRN PRN Reason: dyspnea/severe chest pain Last Admin: 03/06/19 02:32 Dose: 1 mg Ondansetron HCl (Zofran) 4 mg IV Q6H PRN PRN Reason: Nausea/Vomiting Pantoprazole Sodium (Protonix) 40 mg PO Q12H [facility] Last Admin: 03/06/19 22:28 Dose: 40 mg Albuterol/Ipratropium Pt's Own Medication 0 each INH QID [facility] Last Admin: 03/06/19 20:27 Dose: Not Given Hydrocortisone Acetate [Vanicream Hc] 0 each TOP TID [facility] Last Admin: 03/06/19 22:47 Dose: 1 each Senna (Senna) 8.6 mg PO DAILY PRN PRN Reason: Constipation Senna/Docusate Sodium (Senna Plus) 1 tab PO BID PRN PRN Reason: Constipation Sodium Chloride (Saline Flush) 10 ml FLUSH ASDIRECTED PRN PRN Reason: Keep Vein Open Last Admin: 03/03/19 17:04 Dose: 10 ml Triamcinolone Acetonide (Triamcinolone Acetonide 0.1% Crm) 0 gm TOP BID [facility] Last Admin: 03/06/19 22:45 Dose: 1 applic Discontinued Medications Acetaminophen (Tylenol) 650 mg PO ONETIME ONE Stop: 03/03/19 17:04 Last Admin: 03/03/19 17:10 Dose: 650 mg Albuterol/Ipratropium (Duoneb 3.0-0.5 Mg/3 Ml) 3 ml NEB Q6H PRN PRN Reason: Dyspnea Last Admin: 03/03/19 20:56 Dose: 3 ml Docusate Sodium (Colace) 100 mg PO BID PRN PRN Reason: Constipation Furosemide (Lasix) 60 mg IVPUSH NOW ONE Stop: 03/03/19 17:00 Last Admin: 03/03/19 17:04 Dose: 60 mg Furosemide (Lasix) 10 mg IVPUSH NOW ONE Stop: 03/03/19 23:55 Last Admin: 03/04/19 00:12 Dose: 10 mg Furosemide (Lasix) 10 mg IVPUSH NOW ONE Stop: 03/04/19 08:46 Last Admin: 03/04/19 10:50 Dose: 10 mg Furosemide (Lasix) 20 mg IVPUSH ONETIME ONE Stop: 03/04/19 15:58 Last Admin: 03/04/19 17:43 Dose: 20 mg Furosemide (Lasix) 20 mg IVPUSH ONETIME ONE Stop: 03/05/19 12:10 Last Admin: 03/05/19 12:46 Dose: 20 mg Furosemide (Lasix) 20 mg IVPUSH ONETIME ONE Stop: 03/05/19 23:00 Last Admin: 03/06/19 00:03 Dose: 20 mg Hydrochlorothiazide (Hydrochlorothiazide) 12.5 mg PO DAILY [facility] Last Admin: 03/05/19 08:14 Dose: 12.5 mg Ceftriaxone Sodium 2 gm/ (Sodium Chloride) 100 mls @ 200 mls/hr IV ONETIME ONE Stop: 03/03/19 18:43 Last Admin: 03/03/19 18:25 Dose: Not Given Ceftriaxone Sodium 2 gm/ (Sodium Chloride) 100 mls @ 200 mls/hr IV ONETIME ONE Stop: 03/03/19 18:53 Last Admin: 03/03/19 18:56 Dose: 200 mls/hr Magnesium Sulfate 2 gm/ Premix 50 mls @ 25 mls/hr IV NOW STA Stop: 03/04/19 00:58 Last Admin: 03/03/19 23:42 Dose: 25 mls/hr Insulin Human Lispro (Humalog) 0 unit SUBCUT QIDACANDBED PRN; Protocol PRN Reason: Hyperglycemia Melatonin (Melatonin) 6 mg PO DAILY [facility] Miscellaneous Information (Remove Patch) 1 ea TRDERM Q72H [facility] Last Admin: 03/04/19 10:53 Dose: Not Given Nicotine (Habitrol) 21 mg TRDERM Q72H [facility] Last Admin: 03/04/19 10:53 Dose: Not Given Non-Formulary Medication (Acetaminophen) 1,000 mg PO TID PRN PRN Reason: Pain Pantoprazole Sodium (Protonix Iv) 40 mg IV Q12HR [facility] Last Admin: 03/04/19 08:53 Dose: 40 mg Rivaroxaban (Xarelto) 20 mg PO DAILY [facility] Last Admin: 03/05/19 08:15 Dose: 20 mg Rivaroxaban (Xarelto) 20 mg PO DAILY [facility] Senna (Senna) 8.6 mg PO BID [facility] Last Admin: 03/03/19 21:26 Dose: 8.6 mg Triamcinolone Acetonide (Triamcinolone Acetonide 0.1% Crm) 0 gm TOP DAILY [facility] Zolpidem Tartrate (Ambien) 5 mg PO BEDTIME PRN PRN Reason: Sleep - Exam Quality Assessment: Supplemental Oxygen General: Alert, Oriented, Cooperative, No Acute Distress, Other (he looks older than his stated age) HEENT: Pupils Equal, Pupils Reactive, EOMI, Mucous Membr. Moist/[place] Neck: Supple, No JVD Lungs: Normal Respiratory Effort, Crackles, Rhonchi Cardiovascular: Irregular Rhythm GI/Abdominal Exam: Normal Bowel Sounds, Soft, Non-Tender, No Organomegaly, No Distention, No Abnormal Bruit (Male) Exam: Other (indwelling scott catheter) Back Exam: Normal Inspection, Decreased Range of Motion, Other Extremities: Normal Inspection, Normal Range of Motion, Other (significantly improved peripheral edema) Peripheral Pulses: 1+: Dorsalis Pedis (L), Dorsalis Pedis (R) Skin: Warm, Dry, Intact, Ecchymosis Neurological: No New Focal Deficit, Other (weak and unsteady). No: Normal Gait Psy/Mental Status: Alert, Normal Affect, Normal Mood - Problem List Review Problem List Initiated/Reviewed/Updated: Yes - My Orders Last 24 Hours: My Active Orders 03/06/19 09:00 Furosemide [Lasix] 20 mg IVPUSH DAILY Magnesium Oxide 400 mg PO BID 03/06/19 21:00 Insulin Glarg,Human.Rec.Analog [LantUS] 10 unit SUBCUT BID 03/06/19 23:17 Antiembolic Devices [RC] PER UNIT ROUTINE SCD [Sequential Compression Device] [OM.PC] Routine 03/07/19 05:56 BASIC METABOLIC PANEL,BMP [CHEM] AM CBC WITH AUTO DIFF [HEME] AM MAGNESIUM [CHEM] AM PRO B-TYPE NATRIUR PEPT,BNPPRO [CHEM] DAILY 03/08/19 05:00 PRO B-TYPE NATRIUR PEPT,BNPPRO [CHEM] DAILY 03/08/19 05:11 BASIC METABOLIC PANEL,BMP [CHEM] AM CBC WITH AUTO DIFF [HEME] AM MAGNESIUM [CHEM] AM - Plan Plan:: Assessment: Acute: Heart Failure - Carries a hx/o HF with Reduced EF 45-50% ([facility] - Had NH in 1992 with balloon angioplasty in [place] - Statin was discontinued due to little benefit [facility] - ProBNP of 8345-->4202-->7381 - Received diuretics in ED - Repeat CXR this AM - Heart failure regimen: diuretics, salt/fluids restriction, Is/Os and daily weight check Respiratory Failure, Slowly Improving - Acute on chronic - Has hx/o COPD with baseline supplemental O2 of 2-3 L - ABG shows hypoxemia with pH of 7.43 and pO2 of 58 - IV Solumedrol 125 mg IVP Q6H--> 80 mg IPV Q8H - He is now on 3L simple mask - He is now more compliant with NIPPV CAP - Had aspiration pneumonia which lead to bacteremia when he was in [place] - Has baseline dysphagia - Continue IV Azithromycin and Rocephin daily - CXR shows atelectasis Anemia - Hgb of 8.0-->8.2-->7.4 - No baseline for comparison - Has hx/o normocytic anemia - On Xarelto for stroke prophylaxis - Heme-occult test - Monitor H/H DM2 - BS fairly controlled - Accu-check QID with High Dose ISS - Change Solumedrol Q6H from 125 mg to 80 mg Q8h - Lantus 12 units SubQ BID [facility] - He is at terminal stage; poor overall state of health - He is not receptive to comfort measures - SW/CM to educate Hospice/Palliative Care services Resolved: S/p Hypomagnesemia - Mg of 1.6--> 1.9 - 2/2 inadequate intake - Replete and monitor Chronic: Chronic Hypoxic Respiratory Failure 2-3 L of NC, COPD, HF with Reduced EF 45-50%, Normocytic Anemia, Cardiomyopathy non PM Candidate, Chronic Atrial Fibrillation on Xarelto, CAD, Dysphagia, Urinary Retention, Chronic Encephalopathy, Hx/o Dermatitis, Hx/o Melanoma In Situ, and Hx/o Cardiogenic Shock 2/2 Bradycardia Plan: He is much better this AM and now weight 180lbs Routine AM labs AHA/ADA diet Fall precautions RT/OT/PT to asses and treat Continue NIPPV SW/CM for d/c planning Code status: DNR/DNI Additional orders as above Prognosis remains guarded LOS > 96hrs due to complexity of illness plus possible rehab/snf placement from poorly deconditioned body
[2019-03-07] MEDS: IPRATROPIUM INH SCH ×4 (08:16→20:54)
[2019-03-07] MEDS: ALBUTEROL INH SCH ×4 (08:16→20:54)
[2019-03-07] MEDS: Insulin Lispro 100 Units/ML 3 ML Vial SUBCUT SCH ×4 (09:01→22:17)
[2019-03-07] MEDS: Insulin Glarg,Human.Rec.Analog 100 UNIT/ML ML SUBCUT SCH ×2 (09:02→22:17)
[2019-03-07] MEDS: Pantoprazole 40 MG Tab.CR PO SCH ×2 (09:04→22:08)
[2019-03-07] MEDS: Acetaminophen 325 MG Tab PO SCH ×3 (09:04→22:09)
[2019-03-07] MEDS: Magnesium Oxide 400 MG Tab PO SCH ×2 (09:04→22:10)
[2019-03-07] MEDS: Metoprolol Tartrate 25 MG Tab PO SCH ×2 (09:05→22:10)
[2019-03-07] MEDS: Dorzolamide 2% Ophth Soln 10 ML Bottle EYEBOTH SCH ×2 (09:07→22:13)
[2019-03-07] MEDS: Furosemide 20 MG/2 ML VIAL IVPUSH SCH (09:08)
[2019-03-07] MEDS: Triamcinolone Acetonide 0.1% Crm 15 GM Tube TOP SCH ×2 (09:08→22:16)
[2019-03-07] MEDS: HYDROCORTISONE ACETATE TOP SCH ×3 (09:12→22:16)
[2019-03-07] MEDS: Morphine 2 MG/ML Syringe IVPUSH PRN (16:32)
[2019-03-07] MEDS: Azithromycin 500 MG in Sodium Chloride 0.9% 250 ML IV SCH (21:19)
[2019-03-07] MEDS: Melatonin 3 MG Tab PO SCH (22:09)
[2019-03-07] MEDS: Hydrochlorothiazide 12.5 MG Cap PO SCH (22:10)
[2019-03-07] MEDS: Loratadine 10 MG Tab PO SCH (22:11)
[2019-03-07] MEDS: Latanoprost 0.005% Ophth Soln 2.5 ML Bottle EYEBOTH SCH (22:16)
[2019-03-07] MEDS: cefTRIAXone 1 GM in Sodium Chloride 0.9% 100 ML IV SCH (22:22)
[2019-03-07] MEDS ORDERED: methylPREDNISolone Sodium Succinate 125 MG/2 ML SDV IVPUSH ONE (23:00)
[2019-03-07] MEDS: LORazepam 2 MG/ML SDV IV PRN (23:24)
[2019-03-07] MEDS: Acetaminophen/HYDROcodone 325-5 MG Tab PO PRN (23:25)
[2019-03-08] MEDS ORDERED: methylPREDNISolone Sodium Succinate 125 MG/2 ML SDV IVPUSH SCH (01:00)
[2019-03-08] MEDS: methylPREDNISolone Sodium Succinate 125 MG/2 ML SDV IVPUSH SCH ×2 (06:35→16:18)
[2019-03-08] MEDS: Levothyroxine 25 MCG Tab PO SCH (06:35)
[2019-03-08] MEDS: Insulin Lispro 100 Units/ML 3 ML Vial SUBCUT SCH ×4 (06:50→21:19)
[2019-03-08] MEDS: Insulin Glarg,Human.Rec.Analog 100 UNIT/ML ML SUBCUT SCH ×4 (06:51→21:02)
--- NOTE | 2019-03-08 07:08 | PCM.PN ---
- General Info Date of Service: 03/08/19 Admission Dx/Problem (Free Text): Admission Diagnosis/Problem Admission Diagnosis/Problem Congestive heart failure Subjective Update: Follow Up Functional Status: Reports: Pain Controlled, Tolerating Diet, Urinating. Denies : New Symptoms - Review of Systems General: Reports: Weakness, Fatigue. Denies: Fever, Chills HEENT: Reports: No Symptoms Pulmonary: Reports: Shortness of Breath Cardiovascular: Denies: Chest Pain, Dyspnea on Exertion, Edema, Lightheadedness Gastrointestinal: Denies: Abdominal Pain, Nausea, Vomiting Genitourinary: Reports: No Symptoms Musculoskeletal: Reports: No Symptoms Skin: Reports: Bruising Neurological: Reports: Difficulty Walking, Weakness, Gait Disturbance. Denies: Confusion Psychiatric: Denies: Depression, Anxiety, Agitation, Hallucinations Systems Review Comment:: No overnight or acute issues. He was compliant with his NIPPV last night. However his Hgb dropped to 7.2 this morning. His repeat-chest x-ray shows improved lungs. His Chemistry is fairly unremarkable. - Patient Data Vitals - Most Recent: Last Vital Signs Temp 36.4 C 03/08/19 06:27 Pulse 75 03/08/19 06:30 Resp 22 H 03/08/19 06:27 BP 154/87 H 03/08/19 06:30 Pulse Ox 96 03/08/19 06:30 Weight - Most Recent: 82.69 kg I&O - Last 24 Hours: Intake & Output 03/07/19 03/08/19 03/08/19 22:59 06:59 14:59 Intake Total 750 750 Output Total 500 725 Balance 250 25 Lab Results Last 24 Hours: Laboratory Results - last 24 hr 03/07/19 03/07/19 03/07/19 Range/Units 05:56 05:56 05:56 WBC (4.23-9.07) K/mm3 RBC (4.63-6.08) M/mm3 Hgb (13.7-17.5) gm/L Hct (40.1-51.0) % MCV (79.0-92.2) fl MCH (25.7-32.2) pg MCHC (32.2-35.5) g/dl RDW Std Deviation (35.1-43.9) fL Plt Count (163-337) K/mm3 MPV (9.4-12.3) fl Neut % (Auto) (34.0-67.9) % Lymph % (Auto) (21.8-53.1) % [place] % (Auto) (5.3-12.2) % Eos % (Auto) (0.8-7.0) Baso % (Auto) (0.1-1.2) % Neut # (Auto) (1.78-5.38) K/mm3 Lymph # (Auto) (1.32-3.57) K/mm3 [place] # (Auto) (0.30-0.82) K/mm3 Eos # (Auto) (0.04-0.54) K/mm3 Baso # (Auto) (0.01-0.08) K/mm3 Manual Slide Review Abnormal smear Sodium 137 (136-145) mEq/L Potassium 3.9 (3.5-5.1) mEq/L Chloride 100 (98-107) mEq/L Carbon Dioxide 31 (21-32) mEq/L Anion Gap 9.9 (5-15) BUN 38 H (7-18) mg/dL Creatinine 1.0 (0.7-1.3) mg/dL Est Cr Clr Drug Dosing 67.98 mL/min Estimated GFR (MDRD) > 60 (>60) mL/min BUN/Creatinine Ratio 38.0 H (14-18) Glucose 120 H (83-115) mg/dL POC Glucose (83-110) mg/dL Calcium 8.8 (8.5-10.1) mg/dL Magnesium 2.0 (1.8-2.4) mg/dl NT-Pro-B Natriuret Pep 7381 H (0-450) pg/mL 03/07/19 03/07/19 03/07/19 Range/Units 06:25 11:09 17:00 WBC (4.23-9.07) K/mm3 RBC (4.63-6.08) M/mm3 Hgb (13.7-17.5) gm/L Hct (40.1-51.0) % MCV (79.0-92.2) fl MCH (25.7-32.2) pg MCHC (32.2-35.5) g/dl RDW Std Deviation (35.1-43.9) fL Plt Count (163-337) K/mm3 MPV (9.4-12.3) fl Neut % (Auto) (34.0-67.9) % Lymph % (Auto) (21.8-53.1) % [place] % (Auto) (5.3-12.2) % Eos % (Auto) (0.8-7.0) Baso % (Auto) (0.1-1.2) % Neut # (Auto) (1.78-5.38) K/mm3 Lymph # (Auto) (1.32-3.57) K/mm3 [place] # (Auto) (0.30-0.82) K/mm3 Eos # (Auto) (0.04-0.54) K/mm3 Baso # (Auto) (0.01-0.08) K/mm3 Manual Slide Review Sodium (136-145) mEq/L Potassium (3.5-5.1) mEq/L Chloride (98-107) mEq/L Carbon Dioxide (21-32) mEq/L Anion Gap (5-15) BUN (7-18) mg/dL Creatinine (0.7-1.3) mg/dL Est Cr Clr Drug Dosing mL/min Estimated GFR (MDRD) (>60) mL/min BUN/Creatinine Ratio (14-18) Glucose (83-115) mg/dL POC Glucose 154 H 255 H 143 H (83-110) mg/dL Calcium (8.5-10.1) mg/dL Magnesium (1.8-2.4) mg/dl NT-Pro-B Natriuret Pep (0-450) pg/mL 03/07/19 03/08/19 03/08/19 Range/Units 20:54 05:07 05:07 WBC 8.16 (4.23-9.07) K/mm3 RBC 2.72 L (4.63-6.08) M/mm3 Hgb 7.2 L* (13.7-17.5) gm/L Hct 24.9 L (40.1-51.0) % MCV 91.5 (79.0-92.2) fl MCH 26.5 (25.7-32.2) pg MCHC 28.9 L (32.2-35.5) g/dl RDW Std Deviation 57.5 H (35.1-43.9) fL Plt Count 281 (163-337) K/mm3 MPV 9.3 L (9.4-12.3) fl Neut % (Auto) 85.1 H (34.0-67.9) % Lymph % (Auto) 11.4 L (21.8-53.1) % [place] % (Auto) 3.3 L (5.3-12.2) % Eos % (Auto) 0 L (0.8-7.0) Baso % (Auto) 0.0 L (0.1-1.2) % Neut # (Auto) 6.94 H (1.78-5.38) K/mm3 Lymph # (Auto) 0.93 L (1.32-3.57) K/mm3 [place] # (Auto) 0.27 L (0.30-0.82) K/mm3 Eos # (Auto) 0.00 L (0.04-0.54) K/mm3 Baso # (Auto) 0.00 L (0.01-0.08) K/mm3 Manual Slide Review Abnormal smear Sodium 137 (136-145) mEq/L Potassium 3.7 (3.5-5.1) mEq/L Chloride 98 (98-107) mEq/L Carbon Dioxide 30 (21-32) mEq/L Anion Gap 12.7 (5-15) BUN 50 H (7-18) mg/dL Creatinine 1.0 (0.7-1.3) mg/dL Est Cr Clr Drug Dosing 67.98 mL/min Estimated GFR (MDRD) > 60 (>60) mL/min BUN/Creatinine Ratio 50.0 H (14-18) Glucose 126 H (83-115) mg/dL POC Glucose 187 H (83-110) mg/dL Calcium 8.8 (8.5-10.1) mg/dL Magnesium 2.1 (1.8-2.4) mg/dl NT-Pro-B Natriuret Pep (0-450) pg/mL 03/08/19 Range/Units 06:45 WBC (4.23-9.07) K/mm3 RBC (4.63-6.08) M/mm3 Hgb (13.7-17.5) gm/L Hct (40.1-51.0) % MCV (79.0-92.2) fl MCH (25.7-32.2) pg MCHC (32.2-35.5) g/dl RDW Std Deviation (35.1-43.9) fL Plt Count (163-337) K/mm3 MPV (9.4-12.3) fl Neut % (Auto) (34.0-67.9) % Lymph % (Auto) (21.8-53.1) % [place] % (Auto) (5.3-12.2) % Eos % (Auto) (0.8-7.0) Baso % (Auto) (0.1-1.2) % Neut # (Auto) (1.78-5.38) K/mm3 Lymph # (Auto) (1.32-3.57) K/mm3 [place] # (Auto) (0.30-0.82) K/mm3 Eos # (Auto) (0.04-0.54) K/mm3 Baso # (Auto) (0.01-0.08) K/mm3 Manual Slide Review Sodium (136-145) mEq/L Potassium (3.5-5.1) mEq/L Chloride (98-107) mEq/L Carbon Dioxide (21-32) mEq/L Anion Gap (5-15) BUN (7-18) mg/dL Creatinine (0.7-1.3) mg/dL Est Cr Clr Drug Dosing mL/min Estimated GFR (MDRD) (>60) mL/min BUN/Creatinine Ratio (14-18) Glucose (83-115) mg/dL POC Glucose 142 H (83-110) mg/dL Calcium (8.5-10.1) mg/dL Magnesium (1.8-2.4) mg/dl NT-Pro-B Natriuret Pep (0-450) pg/mL Carlos Results Last 24 Hours: Microbiology 03/07/19 23:10 Stool Occult Blood (CARLOS) - Final Stool / Feces NEGATIVE OCCULT BLOOD REFERENCE RANGE: NEGATIVE 03/03/19 20:30 Aerobic Blood Culture - Preliminary Blood - Venous - Lab Draw NO GROWTH AFTER 4 DAYS Anaerobic Blood Culture - Preliminary NO GROWTH AFTER 4 DAYS 03/03/19 18:17 Aerobic Blood Culture - Preliminary Blood - Venous NO GROWTH AFTER 4 DAYS Anaerobic Blood Culture - Preliminary NO GROWTH AFTER 4 DAYS Med Orders - Current: Current Medications Acetaminophen (Tylenol) 650 mg PO TID [facility] Last Admin: 03/07/19 22:09 Dose: 650 mg Hydrocodone Bitart/Acetaminophen ([place] 325-5 Mg) 1 tab PO Q4H PRN PRN Reason: Pain (moderate 4-6) Last Admin: 03/07/19 23:25 Dose: 1 tab Albuterol/Ipratropium (Duoneb 3.0-0.5 Mg/3 Ml) 3 ml NEB Q4H PRN PRN Reason: Shortness Of Breath/wheezing Last Admin: 03/06/19 20:22 Dose: 3 ml Bisacodyl (Dulcolax) 5 mg PO DAILY PRN PRN Reason: Constipation Dextrose/Water (Dextrose 50% In Water) 50 ml IVPUSH ASDIRECTED PRN PRN Reason: Hypoglycemia Dorzolamide HCl (Trusopt 2% Ophth Soln) 0 ml EYEBOTH BID [facility] Last Admin: 03/07/19 22:13 Dose: 1 drop Furosemide (Lasix) 20 mg IVPUSH DAILY [facility] Last Admin: 03/07/19 09:08 Dose: 20 mg Hydrochlorothiazide (Hydrochlorothiazide) 12.5 mg PO BEDTIME [facility] Last Admin: 03/07/19 22:10 Dose: 12.5 mg Hydromorphone HCl (Dilaudid) 0.5 mg IVPUSH Q2H PRN PRN Reason: Pain (severe 7-10) Last Admin: 03/07/19 00:07 Dose: 0.5 mg Promethazine HCl 6.25 mg/ (Sodium Chloride) 50.25 mls @ 100 mls/hr IV Q6H PRN PRN Reason: Nausea/Vomiting Azithromycin 500 mg/ Sodium (Chloride) 250 mls @ 250 mls/hr IV Q24H [facility] Last Admin: 03/07/19 21:19 Dose: 250 mls/hr Ceftriaxone Sodium 1 gm/ (Sodium Chloride) 100 mls @ 200 mls/hr IV Q24H [facility] Last Admin: 03/07/19 22:22 Dose: 200 mls/hr Insulin Glargine (Lantus) 12 unit SUBCUT BID [facility] Last Admin: 03/08/19 06:51 Dose: Not Given Insulin Human Lispro (Humalog) 0 unit SUBCUT QIDACANDBED [facility]; Protocol Last Admin: 03/08/19 06:50 Dose: Not Given Latanoprost (Xalatan 0.005% Ophth Soln) 0 ml EYEBOTH BEDTIME [facility] Last Admin: 03/07/19 22:16 Dose: 1 drop Levothyroxine Sodium (Levothyroxine) 25 mcg PO ACBREAKFAST [facility] Last Admin: 03/08/19 06:35 Dose: 25 mcg Loratadine (Claritin) 10 mg PO BEDTIME [facility] Last Admin: 03/07/19 22:11 Dose: 10 mg Lorazepam (Ativan) 0.25 mg IV Q6H PRN PRN Reason: Anxiety Last Admin: 03/07/19 23:24 Dose: 0.25 mg Magnesium Oxide (Magnesium Oxide) 400 mg PO BID [facility] Last Admin: 03/07/19 22:10 Dose: 400 mg Melatonin (Melatonin) 6 mg PO BEDTIME [facility] Last Admin: 03/07/19 22:09 Dose: 6 mg Methylprednisolone Sodium Succinate (Solu-Medrol) 80 mg IVPUSH Q8HR [facility] Last Admin: 03/08/19 06:35 Dose: 80 mg Metoprolol Tartrate (Lopressor) 12.5 mg PO BID [facility] Last Admin: 03/07/19 22:10 Dose: 12.5 mg Morphine Sulfate (Morphine) 1 mg IVPUSH Q4H PRN PRN Reason: dyspnea/severe chest pain Last Admin: 03/07/19 16:32 Dose: 1 mg Ondansetron HCl (Zofran) 4 mg IV Q6H PRN PRN Reason: Nausea/Vomiting Pantoprazole Sodium (Protonix) 40 mg PO Q12H [facility] Last Admin: 03/07/19 22:08 Dose: 40 mg Albuterol/Ipratropium Pt's Own Medication 0 each INH QID [facility] Last Admin: 03/07/19 20:54 Dose: 1 each Hydrocortisone Acetate [Vanicream Hc] 0 each TOP TID [facility] Last Admin: 03/07/19 22:16 Dose: 1 each Senna (Senna) 8.6 mg PO DAILY PRN PRN Reason: Constipation Senna/Docusate Sodium (Senna Plus) 1 tab PO BID PRN PRN Reason: Constipation Sodium Chloride (Saline Flush) 10 ml FLUSH ASDIRECTED PRN PRN Reason: Keep Vein Open Last Admin: 03/03/19 17:04 Dose: 10 ml Triamcinolone Acetonide (Triamcinolone Acetonide 0.1% Crm) 0 gm TOP BID [facility] Last Admin: 03/07/19 22:16 Dose: 1 applic Discontinued Medications Acetaminophen (Tylenol) 650 mg PO ONETIME ONE Stop: 03/03/19 17:04 Last Admin: 03/03/19 17:10 Dose: 650 mg Albuterol/Ipratropium (Duoneb 3.0-0.5 Mg/3 Ml) 3 ml NEB Q6H PRN PRN Reason: Dyspnea Last Admin: 03/03/19 20:56 Dose: 3 ml Docusate Sodium (Colace) 100 mg PO BID PRN PRN Reason: Constipation Furosemide (Lasix) 60 mg IVPUSH NOW ONE Stop: 03/03/19 17:00 Last Admin: 03/03/19 17:04 Dose: 60 mg Furosemide (Lasix) 10 mg IVPUSH NOW ONE Stop: 03/03/19 23:55 Last Admin: 03/04/19 00:12 Dose: 10 mg Furosemide (Lasix) 10 mg IVPUSH NOW ONE Stop: 03/04/19 08:46 Last Admin: 03/04/19 10:50 Dose: 10 mg Furosemide (Lasix) 20 mg IVPUSH ONETIME ONE Stop: 03/04/19 15:58 Last Admin: 03/04/19 17:43 Dose: 20 mg Furosemide (Lasix) 20 mg IVPUSH ONETIME ONE Stop: 03/05/19 12:10 Last Admin: 03/05/19 12:46 Dose: 20 mg Furosemide (Lasix) 20 mg IVPUSH ONETIME ONE Stop: 03/05/19 23:00 Last Admin: 03/06/19 00:03 Dose: 20 mg Hydrochlorothiazide (Hydrochlorothiazide) 12.5 mg PO DAILY [facility] Last Admin: 03/05/19 08:14 Dose: 12.5 mg Ceftriaxone Sodium 2 gm/ (Sodium Chloride) 100 mls @ 200 mls/hr IV ONETIME ONE Stop: 03/03/19 18:43 Last Admin: 03/03/19 18:25 Dose: Not Given Ceftriaxone Sodium 2 gm/ (Sodium Chloride) 100 mls @ 200 mls/hr IV ONETIME ONE Stop: 03/03/19 18:53 Last Admin: 03/03/19 18:56 Dose: 200 mls/hr Magnesium Sulfate 2 gm/ Premix 50 mls @ 25 mls/hr IV NOW STA Stop: 03/04/19 00:58 Last Admin: 03/03/19 23:42 Dose: 25 mls/hr Insulin Glargine (Lantus) 10 unit SUBCUT BID [facility] Last Admin: 03/07/19 09:02 Dose: 10 units Insulin Human Lispro (Humalog) 0 unit SUBCUT QIDACANDBED PRN; Protocol PRN Reason: Hyperglycemia Melatonin (Melatonin) 6 mg PO DAILY [facility] Methylprednisolone Sodium Succinate (Solu-Medrol) 125 mg IVPUSH Q6H [facility] Last Admin: 03/07/19 17:38 Dose: 125 mg Methylprednisolone Sodium Succinate (Solu-Medrol) 80 mg IVPUSH ONETIME ONE Stop: 03/07/19 23:01 Last Admin: 03/07/19 22:30 Dose: 80 mg Miscellaneous Information (Remove Patch) 1 ea TRDERM Q72H [facility] Last Admin: 03/04/19 10:53 Dose: Not Given Nicotine (Habitrol) 21 mg TRDERM Q72H [facility] Last Admin: 03/04/19 10:53 Dose: Not Given Non-Formulary Medication (Acetaminophen) 1,000 mg PO TID PRN PRN Reason: Pain Pantoprazole Sodium (Protonix Iv) 40 mg IV Q12HR [facility] Last Admin: 03/04/19 08:53 Dose: 40 mg Rivaroxaban (Xarelto) 20 mg PO DAILY [facility] Last Admin: 03/05/19 08:15 Dose: 20 mg Rivaroxaban (Xarelto) 20 mg PO DAILY [facility] Senna (Senna) 8.6 mg PO BID [facility] Last Admin: 03/03/19 21:26 Dose: 8.6 mg Triamcinolone Acetonide (Triamcinolone Acetonide 0.1% Crm) 0 gm TOP DAILY [facility] Zolpidem Tartrate (Ambien) 5 mg PO BEDTIME PRN PRN Reason: Sleep - Exam General: Alert, Oriented, Cooperative, No Acute Distress HEENT: Pupils Equal, Pupils Reactive, EOMI, Mucous Membr. Moist/[place] Neck: Supple Lungs: Normal Respiratory Effort, Crackles, Rhonchi Cardiovascular: Irregular Rhythm GI/Abdominal Exam: Normal Bowel Sounds, Soft, Non-Tender, No Organomegaly, No Distention, No Abnormal Bruit, No Mass (Male) Exam: Other (indwelling folecy catheter) Back Exam: Normal Inspection, Decreased Range of Motion Extremities: Normal Inspection, Normal Range of Motion, Non-Tender, No Pedal Edema, Normal Capillary Refill Peripheral Pulses: 2+: Dorsalis Pedis (L), Dorsalis Pedis (R) Skin: Warm, Dry, Intact Neurological: No New Focal Deficit. No: Normal Gait Psy/Mental Status: Alert, Normal Affect, Normal Mood - Problem List Review Problem List Initiated/Reviewed/Updated: Yes - My Orders Last 24 Hours: My Active Orders 03/07/19 09:00 Insulin Glarg,Human.Rec.Analog [LantUS] 12 unit SUBCUT BID 03/08/19 05:07 PRO B-TYPE NATRIUR PEPT,BNPPRO [CHEM] DAILY 03/08/19 06:00 methylPREDNISolone Sod Succ [Solu-MEDROL] 80 mg IVPUSH Q8HR 03/08/19 07:22 Chest 1V Frontal [CR] Routine - Plan Plan:: Assessment: Acute: Heart Failure - Carries a hx/o HF with Reduced EF 45-50% ([facility] - Had NV in 1992 with balloon angioplasty in [place] - Statin was discontinued due to little benefit per [facility] note - ProBNP of 8345-->4202-->7381-->8782 - Received diuretics in ED - Repeat CXR this AM shows improved lungs - Strict Is/Os due to 2lbs weight gain - Additional loop diuretics at night time - Heart failure regimen: diuretics, salt/fluids restriction, and daily weight check Respiratory Failure, Continues to Improve - Acute on chronic - Has hx/o COPD with baseline supplemental O2 of 2-3 L - ABG shows hypoxemia with pH of 7.43 and pO2 of 58 - IV Solumedrol 125 mg IVP Q6H--> 80 mg IPV Q8H - He is now on 3L simple mask - He is now more compliant with NIPPV CAP - Had aspiration pneumonia which lead to bacteremia when he was in [place] - Has baseline dysphagia - Continue IV Azithromycin and Rocephin daily - CXR shows atelectasis Anemia - Hgb of 8.0-->8.2-->7.4-->7.2 - No baseline for comparison - Has hx/o normocytic anemia - On Xarelto for stroke prophylaxis - Iron and Vit C Supplement - Heme-occult test - Monitor H/H DM2 - BS fairly controlled - Accu-check QID with High Dose ISS - Change IV Solumedrol to 80 mg Q12h - Lantus 12 units SubQ BID [facility] - He is at terminal stage; poor overall state of health - He is not receptive to comfort measures - SW/CM to educate Hospice/Palliative Care services Resolved: S/p Hypomagnesemia - Mg of 1.6--> 1.9 - 2/2 inadequate intake - Replete and monitor Chronic: Chronic Hypoxic Respiratory Failure 2-3 L of NC, COPD, HF with Reduced EF 45-50%, Normocytic Anemia, Cardiomyopathy non PM Candidate, Chronic Atrial Fibrillation on Xarelto, CAD, Dysphagia, Urinary Retention, Chronic Encephalopathy, Hx/o Dermatitis, Hx/o Melanoma In Situ, and Hx/o Cardiogenic Shock 2/2 Bradycardia Plan: He is clinically stable but gained a couple of pounds Routine AM labs AHA/ADA diet Fall precautions RT/OT/PT to asses and treat Continue NIPPV SW/CM for d/c planning Code status: DNR/DNI Additional orders as above Prognosis remains guarded LOS > 96hrs due to complexity of illness from poorly deconditioned body
[2019-03-08] MEDS: IPRATROPIUM INH SCH ×4 (08:47→20:53)
[2019-03-08] MEDS: ALBUTEROL INH SCH ×4 (08:47→20:53)
[2019-03-08] MEDS: Furosemide 20 MG/2 ML VIAL IVPUSH SCH ×4 (09:02→21:03)
[2019-03-08] MEDS: Magnesium Oxide 400 MG Tab PO SCH ×2 (09:02→21:00)
[2019-03-08] MEDS: Pantoprazole 40 MG Tab.CR PO SCH ×2 (09:02→21:00)
[2019-03-08] MEDS: Metoprolol Tartrate 25 MG Tab PO SCH ×2 (09:03→21:01)
[2019-03-08] MEDS: Acetaminophen 325 MG Tab PO SCH ×3 (09:03→21:01)
[2019-03-08] MEDS: Triamcinolone Acetonide 0.1% Crm 15 GM Tube TOP SCH ×2 (09:04→21:04)
[2019-03-08] MEDS: Dorzolamide 2% Ophth Soln 10 ML Bottle EYEBOTH SCH ×2 (09:04→21:03)
[2019-03-08] MEDS: HYDROCORTISONE ACETATE TOP SCH ×3 (09:05→21:04)
--- NOTE | 2019-03-08 09:21 | CR ---
Chest: Portable view of the chest was obtained. Comparison: Prior chest x-ray of 03/06/19. Heart is slightly prominent. Diffuse increased lung markings are seen which may be slightly improved from prior exam. No new parenchymal densities are otherwise seen. Bony structures are grossly intact. Impression: 1. Diffuse increased lung markings slightly improved from previous study. No new abnormality is identified. Diagnostic code #3
[2019-03-08] MEDS ORDERED: Sodium Chloride 0.9% 250 ML IV SCH (12:45)
[2019-03-08] MEDS: Loratadine 10 MG Tab PO SCH (21:00)
[2019-03-08] MEDS: Hydrochlorothiazide 12.5 MG Cap PO SCH (21:00)
[2019-03-08] MEDS: Azithromycin 250 MG Tab PO SCH (21:00)
[2019-03-08] MEDS: Iron Polysaccharides Complex 150 MG Cap PO SCH (21:02)
[2019-03-08] MEDS: Ascorbic Acid 500 MG Tab PO SCH (21:02)
[2019-03-08] MEDS: Melatonin 3 MG Tab PO SCH (21:03)
[2019-03-08] MEDS: Latanoprost 0.005% Ophth Soln 2.5 ML Bottle EYEBOTH SCH (21:04)
[2019-03-08] MEDS: cefTRIAXone 1 GM in Sodium Chloride 0.9% 100 ML IV SCH (21:28)
[2019-03-09] MEDS: LORazepam 2 MG/ML SDV IV PRN (01:21)
[2019-03-09] MEDS: Insulin Lispro 100 Units/ML 3 ML Vial SUBCUT SCH ×4 (07:04→22:13)
[2019-03-09] MEDS: Levothyroxine 25 MCG Tab PO SCH (07:40)
--- NOTE | 2019-03-09 07:58 | PCM.PN ---
- General Info Date of Service: 03/09/19 Admission Dx/Problem (Free Text): Admission Diagnosis/Problem Admission Diagnosis/Problem Congestive heart failure Subjective Update: Follow Up Functional Status: Reports: Pain Controlled, Tolerating Diet, Urinating. Denies : New Symptoms - Review of Systems HEENT: Reports: Contact Lenses - Patient Data Vitals - Most Recent: Last Vital Signs Temp 37.0 C 03/08/19 20:57 Pulse 82 03/08/19 21:01 Resp 24 H 03/08/19 20:57 BP 145/73 H 03/08/19 21:01 Pulse Ox 98 03/08/19 20:57 Weight - Most Recent: 81.692 kg I&O - Last 24 Hours: Intake & Output 03/08/19 03/09/19 03/09/19 22:59 06:59 14:59 Intake Total 1817 400 Output Total 1265 740 Balance 552 -340 Lab Results Last 24 Hours: Laboratory Results - last 24 hr 03/08/19 03/08/19 03/08/19 Range/Units 05:07 11:02 12:31 POC Glucose 195 H (83-110) mg/dL Blood Type A NEGATIVE Gel Antibody Screen Negative Crossmatch See Detail See Detail 03/08/19 03/08/19 03/09/19 Range/Units 16:49 20:51 06:37 POC Glucose 219 H 131 H 98 (83-110) mg/dL Blood Type Gel Antibody Screen Crossmatch Carlos Results Last 24 Hours: Microbiology 03/03/19 20:30 Aerobic Blood Culture - Preliminary Blood - Venous - Lab Draw NO GROWTH AFTER 5 DAYS Anaerobic Blood Culture - Preliminary NO GROWTH AFTER 5 DAYS 03/03/19 18:17 Aerobic Blood Culture - Preliminary Blood - Venous NO GROWTH AFTER 5 DAYS Anaerobic Blood Culture - Preliminary NO GROWTH AFTER 5 DAYS Med Orders - Current: Current Medications Acetaminophen (Tylenol) 650 mg PO TID [facility] Last Admin: 03/08/19 21:01 Dose: 650 mg Hydrocodone Bitart/Acetaminophen ([place] 325-5 Mg) 1 tab PO Q4H PRN PRN Reason: Pain (moderate 4-6) Last Admin: 03/07/19 23:25 Dose: 1 tab Albuterol/Ipratropium (Duoneb 3.0-0.5 Mg/3 Ml) 3 ml NEB Q4H PRN PRN Reason: Shortness Of Breath/wheezing Last Admin: 03/06/19 20:22 Dose: 3 ml Ascorbic Acid (Vitamin C) 500 mg PO BID [facility] Last Admin: 03/08/19 21:02 Dose: 500 mg Azithromycin (Zithromax) 500 mg PO Q24H [facility] Last Admin: 03/08/19 21:00 Dose: 500 mg Bisacodyl (Dulcolax) 5 mg PO DAILY PRN PRN Reason: Constipation Dextrose/Water (Dextrose 50% In Water) 50 ml IVPUSH ASDIRECTED PRN PRN Reason: Hypoglycemia Dorzolamide HCl (Trusopt 2% Ophth Soln) 0 ml EYEBOTH BID [facility] Last Admin: 03/08/19 21:03 Dose: 1 drop Furosemide (Lasix) 20 mg IVPUSH DAILY [facility] Last Admin: 03/08/19 09:02 Dose: 20 mg Furosemide (Lasix) 10 mg IVPUSH 2100 [facility] Stop: 03/10/19 21:01 Last Admin: 03/08/19 21:03 Dose: 10 mg Hydrochlorothiazide (Hydrochlorothiazide) 12.5 mg PO BEDTIME [facility] Last Admin: 03/08/19 21:00 Dose: 12.5 mg Hydromorphone HCl (Dilaudid) 0.5 mg IVPUSH Q2H PRN PRN Reason: Pain (severe 7-10) Last Admin: 03/07/19 00:07 Dose: 0.5 mg Promethazine HCl 6.25 mg/ (Sodium Chloride) 50.25 mls @ 100 mls/hr IV Q6H PRN PRN Reason: Nausea/Vomiting Ceftriaxone Sodium 1 gm/ (Sodium Chloride) 100 mls @ 200 mls/hr IV Q24H [facility] Last Admin: 03/08/19 21:28 Dose: 200 mls/hr Insulin Glargine (Lantus) 12 unit SUBCUT BID [facility] Last Admin: 03/08/19 21:02 Dose: 12 unit Insulin Human Lispro (Humalog) 0 unit SUBCUT QIDACANDBED [facility]; Protocol Last Admin: 03/09/19 07:04 Dose: Not Given Latanoprost (Xalatan 0.005% Ophth Soln) 0 ml EYEBOTH BEDTIME [facility] Last Admin: 03/08/19 21:04 Dose: 1 drop Levothyroxine Sodium (Levothyroxine) 25 mcg PO ACBREAKFAST [facility] Last Admin: 03/09/19 07:40 Dose: 25 mcg Loratadine (Claritin) 10 mg PO BEDTIME [facility] Last Admin: 03/08/19 21:00 Dose: 10 mg Lorazepam (Ativan) 0.25 mg IV Q6H PRN PRN Reason: Anxiety Last Admin: 03/09/19 01:21 Dose: 0.25 mg Magnesium Oxide (Magnesium Oxide) 400 mg PO BID [facility] Last Admin: 03/08/19 21:00 Dose: 400 mg Melatonin (Melatonin) 6 mg PO BEDTIME [facility] Last Admin: 03/08/19 21:03 Dose: 6 mg Methylprednisolone Sodium Succinate (Solu-Medrol) 80 mg IVPUSH Q12H [facility] Metoprolol Tartrate (Lopressor) 12.5 mg PO BID [facility] Last Admin: 03/08/19 21:01 Dose: 12.5 mg Morphine Sulfate (Morphine) 1 mg IVPUSH Q4H PRN PRN Reason: dyspnea/severe chest pain Last Admin: 03/07/19 16:32 Dose: 1 mg Ondansetron HCl (Zofran) 4 mg IV Q6H PRN PRN Reason: Nausea/Vomiting Pantoprazole Sodium (Protonix) 40 mg PO Q12H [facility] Last Admin: 03/08/19 21:00 Dose: 40 mg Albuterol/Ipratropium Pt's Own Medication 0 each INH QID [facility] Last Admin: 03/08/19 20:53 Dose: 1 each Hydrocortisone Acetate [Vanicream Hc] 0 each TOP TID [facility] Last Admin: 03/08/19 21:04 Dose: 1 each Polysaccharide Iron Complex (Ferrex 150) 300 mg PO BID [facility] Last Admin: 03/08/19 21:02 Dose: 300 mg Senna (Senna) 8.6 mg PO DAILY PRN PRN Reason: Constipation Senna/Docusate Sodium (Senna Plus) 1 tab PO BID PRN PRN Reason: Constipation Sodium Chloride (Saline Flush) 10 ml FLUSH ASDIRECTED PRN PRN Reason: Keep Vein Open Last Admin: 03/03/19 17:04 Dose: 10 ml Triamcinolone Acetonide (Triamcinolone Acetonide 0.1% Crm) 0 gm TOP BID [facility] Last Admin: 03/08/19 21:04 Dose: 1 applic Discontinued Medications Acetaminophen (Tylenol) 650 mg PO ONETIME ONE Stop: 03/03/19 17:04 Last Admin: 03/03/19 17:10 Dose: 650 mg Albuterol/Ipratropium (Duoneb 3.0-0.5 Mg/3 Ml) 3 ml NEB Q6H PRN PRN Reason: Dyspnea Last Admin: 03/03/19 20:56 Dose: 3 ml Docusate Sodium (Colace) 100 mg PO BID PRN PRN Reason: Constipation Furosemide (Lasix) 60 mg IVPUSH NOW ONE Stop: 03/03/19 17:00 Last Admin: 03/03/19 17:04 Dose: 60 mg Furosemide (Lasix) 10 mg IVPUSH NOW ONE Stop: 03/03/19 23:55 Last Admin: 03/04/19 00:12 Dose: 10 mg Furosemide (Lasix) 10 mg IVPUSH NOW ONE Stop: 03/04/19 08:46 Last Admin: 03/04/19 10:50 Dose: 10 mg Furosemide (Lasix) 20 mg IVPUSH ONETIME ONE Stop: 03/04/19 15:58 Last Admin: 03/04/19 17:43 Dose: 20 mg Furosemide (Lasix) 20 mg IVPUSH ONETIME ONE Stop: 03/05/19 12:10 Last Admin: 03/05/19 12:46 Dose: 20 mg Furosemide (Lasix) 20 mg IVPUSH ONETIME ONE Stop: 03/05/19 23:00 Last Admin: 03/06/19 00:03 Dose: 20 mg Furosemide (Lasix) 10 mg IVPUSH 1800 [facility] Stop: 03/10/19 18:01 Last Admin: 03/08/19 19:54 Dose: Not Given Hydrochlorothiazide (Hydrochlorothiazide) 12.5 mg PO DAILY [facility] Last Admin: 03/05/19 08:14 Dose: 12.5 mg Ceftriaxone Sodium 2 gm/ (Sodium Chloride) 100 mls @ 200 mls/hr IV ONETIME ONE Stop: 03/03/19 18:43 Last Admin: 03/03/19 18:25 Dose: Not Given Ceftriaxone Sodium 2 gm/ (Sodium Chloride) 100 mls @ 200 mls/hr IV ONETIME ONE Stop: 03/03/19 18:53 Last Admin: 03/03/19 18:56 Dose: 200 mls/hr Magnesium Sulfate 2 gm/ Premix 50 mls @ 25 mls/hr IV NOW STA Stop: 03/04/19 00:58 Last Admin: 03/03/19 23:42 Dose: 25 mls/hr Azithromycin 500 mg/ Sodium (Chloride) 250 mls @ 250 mls/hr IV Q24H [facility] Last Admin: 03/07/19 21:19 Dose: 250 mls/hr Sodium Chloride (Normal Saline) 250 mls @ 100 mls/hr IV ASDIRECTED [facility] Insulin Glargine (Lantus) 10 unit SUBCUT BID [facility] Last Admin: 03/08/19 12:34 Dose: Not Given Insulin Human Lispro (Humalog) 0 unit SUBCUT QIDACANDBED PRN; Protocol PRN Reason: Hyperglycemia Melatonin (Melatonin) 6 mg PO DAILY [facility] Methylprednisolone Sodium Succinate (Solu-Medrol) 125 mg IVPUSH Q6H [facility] Last Admin: 03/07/19 17:38 Dose: 125 mg Methylprednisolone Sodium Succinate (Solu-Medrol) 80 mg IVPUSH ONETIME ONE Stop: 03/07/19 23:01 Last Admin: 03/07/19 22:30 Dose: 80 mg Methylprednisolone Sodium Succinate (Solu-Medrol) 80 mg IVPUSH Q8HR [facility] Last Admin: 03/08/19 16:18 Dose: 80 mg Miscellaneous Information (Remove Patch) 1 ea TRDERM Q72H [facility] Last Admin: 03/04/19 10:53 Dose: Not Given Nicotine (Habitrol) 21 mg TRDERM Q72H [facility] Last Admin: 03/04/19 10:53 Dose: Not Given Non-Formulary Medication (Acetaminophen) 1,000 mg PO TID PRN PRN Reason: Pain Pantoprazole Sodium (Protonix Iv) 40 mg IV Q12HR [facility] Last Admin: 03/04/19 08:53 Dose: 40 mg Rivaroxaban (Xarelto) 20 mg PO DAILY [facility] Last Admin: 03/05/19 08:15 Dose: 20 mg Rivaroxaban (Xarelto) 20 mg PO DAILY [facility] Senna (Senna) 8.6 mg PO BID [facility] Last Admin: 03/03/19 21:26 Dose: 8.6 mg Triamcinolone Acetonide (Triamcinolone Acetonide 0.1% Crm) 0 gm TOP DAILY [facility] Zolpidem Tartrate (Ambien) 5 mg PO BEDTIME PRN PRN Reason: Sleep - My Orders Last 24 Hours: My Active Orders 03/08/19 07:10 Transfuse PRBC [Transfuse Red Blood Cells] [COMM] Routine 03/08/19 21:00 Ascorbic Acid [Vitamin C] 500 mg PO BID Azithromycin [Zithromax] 500 mg PO Q24H Furosemide [Lasix] 10 mg IVPUSH 2100 [place] Polysaccharides Complex [Ferrex 150] 300 mg PO BID 03/09/19 04:30 Remove Bro Catheter [Urinary Catheter Removal] [RC] Per Unit Routine 03/09/19 07:56 CBC WITH AUTO DIFF [HEME] Urgent 03/09/19 07:57 BMP [BASIC METABOLIC PANEL,BMP] [CHEM] Urgent MG [MAGNESIUM] [CHEM] Urgent 03/09/19 09:00 methylPREDNISolone Sod Succ [Solu-MEDROL] 80 mg IVPUSH Q12H 03/10/19 05:11 BMP [BASIC METABOLIC PANEL,BMP] [CHEM] AM CBC WITH AUTO DIFF [HEME] AM MG [MAGNESIUM] [CHEM] AM 03/11/19 05:11 BMP [BASIC METABOLIC PANEL,BMP] [CHEM] AM CBC WITH AUTO DIFF [HEME] AM MG [MAGNESIUM] [CHEM] AM 03/12/19 05:11 BMP [BASIC METABOLIC PANEL,BMP] [CHEM] AM CBC WITH AUTO DIFF [HEME] AM MG [MAGNESIUM] [CHEM] AM 03/13/19 05:11 BMP [BASIC METABOLIC PANEL,BMP] [CHEM] AM MG [MAGNESIUM] [CHEM] AM 03/14/19 05:11 BMP [BASIC METABOLIC PANEL,BMP] [CHEM] AM MG [MAGNESIUM] [CHEM] AM - Plan Plan:: Assessment: Acute: Heart Failure - Carries a hx/o HF with Reduced EF 45-50% ([facility] 03[facility] - Had CO in 1992 with balloon angioplasty in [place] - Statin was discontinued due to little benefit per [facility] - ProBNP of 8345-->4202-->7381-->8782 - Received diuretics in ED - Repeat CXR this AM shows improved lungs - Strict Is/Os due to 2lbs weight gain - Additional loop diuretics at night time - Heart failure regimen: diuretics, salt/fluids restriction, and daily weight check Respiratory Failure, Continues to Improve - Acute on chronic - Has hx/o COPD with baseline supplemental O2 of 2-3 L - ABG shows hypoxemia with pH of 7.43 and pO2 of 58 - IV Solumedrol 125 mg IVP Q6H--> 80 mg IPV Q8H - He is now on 3L simple mask - He is now more compliant with NIPPV CAP - Had aspiration pneumonia which lead to bacteremia when he was in [place] - Has baseline dysphagia - Continue IV Azithromycin and Rocephin daily - CXR shows atelectasis Anemia - Hgb of 8.0-->8.2-->7.4-->7.2 - No baseline for comparison - Has hx/o normocytic anemia - On Xarelto for stroke prophylaxis - Iron and Vit C Supplement - Heme-occult test - Monitor H/H DM2 - BS fairly controlled - Accu-check QID with High Dose ISS - Change IV Solumedrol to 80 mg Q12h - Lantus 12 units SubQ BID [facility] - He is at terminal stage; poor overall state of health - He is not receptive to comfort measures - SW/CM to educate Hospice/Palliative Care services Resolved: S/p Hypomagnesemia - Mg of 1.6--> 1.9 - 2/2 inadequate intake - Replete and monitor Chronic: Chronic Hypoxic Respiratory Failure 2-3 L of NC, COPD, HF with Reduced EF 45-50%, Normocytic Anemia, Cardiomyopathy non PM Candidate, Chronic Atrial Fibrillation on Xarelto, CAD, Dysphagia, Urinary Retention, Chronic Encephalopathy, Hx/o Dermatitis, Hx/o Melanoma In Situ, and Hx/o Cardiogenic Shock 2/2 Bradycardia Plan: He is clinically stable but gained a couple of pounds Routine AM labs AHA/ADA diet Fall precautions RT/OT/PT to asses and treat Continue NIPPV SW/CM for d/c planning Code status: DNR/DNI Additional orders as above Prognosis remains guarded LOS > 96hrs due to complexity of illness from poorly deconditioned body
[2019-03-09] MEDS: Furosemide 20 MG/2 ML VIAL IVPUSH SCH ×2 (08:51→22:08)
[2019-03-09] MEDS: methylPREDNISolone Sodium Succinate 125 MG/2 ML SDV IVPUSH SCH ×2 (08:54→22:10)
[2019-03-09] MEDS: Insulin Glarg,Human.Rec.Analog 100 UNIT/ML ML SUBCUT SCH ×2 (08:58→22:08)
[2019-03-09] MEDS: Dorzolamide 2% Ophth Soln 10 ML Bottle EYEBOTH SCH ×2 (09:00→22:13)
[2019-03-09] MEDS: Magnesium Oxide 400 MG Tab PO SCH ×2 (09:07→22:04)
[2019-03-09] MEDS: Metoprolol Tartrate 25 MG Tab PO SCH ×2 (09:07→22:04)
[2019-03-09] MEDS: Ascorbic Acid 500 MG Tab PO SCH ×2 (09:08→22:06)
[2019-03-09] MEDS: Acetaminophen 325 MG Tab PO SCH ×3 (09:08→22:06)
[2019-03-09] MEDS: Pantoprazole 40 MG Tab.CR PO SCH ×2 (09:08→22:05)
[2019-03-09] MEDS: Iron Polysaccharides Complex 150 MG Cap PO SCH ×2 (09:08→22:05)
--- NOTE | 2019-03-09 09:10 | PCM.PN ---
- General Info Date of Service: 03/09/19 Admission Dx/Problem (Free Text): Admission Diagnosis/Problem Admission Diagnosis/Problem Congestive heart failure Subjective Update: Follow Up Functional Status: Reports: Pain Controlled, Tolerating Diet, Urinating. Denies : New Symptoms - Review of Systems General: Denies: Fever, Chills HEENT: Reports: No Symptoms Pulmonary: Reports: Shortness of Breath Cardiovascular: Denies: Chest Pain, Dyspnea on Exertion, Lightheadedness Gastrointestinal: Denies: Abdominal Pain, Nausea, Vomiting Genitourinary: Reports: No Symptoms Musculoskeletal: Reports: No Symptoms Skin: Reports: Bruising Neurological: Reports: Difficulty Walking, Weakness. Denies: Confusion Psychiatric: Denies: Depression, Anxiety, Agitation, Hallucinations Systems Review Comment:: No overnight or acute issues. He has no complaints and seems to improve clinically. - Patient Data Vitals - Most Recent: Last Vital Signs Temp 36.5 C 03/09/19 08:50 Pulse 62 03/09/19 09:07 Resp 16 03/09/19 08:50 BP 160/85 H 03/09/19 09:07 Pulse Ox 99 03/09/19 08:50 Weight - Most Recent: 81.692 kg I&O - Last 24 Hours: Intake & Output 03/08/19 03/09/19 03/09/19 22:59 06:59 14:59 Intake Total 1817 400 Output Total 1265 740 Balance 552 -340 Lab Results Last 24 Hours: Laboratory Results - last 24 hr 03/08/19 03/08/19 03/08/19 Range/Units 05:07 11:02 12:31 WBC (4.23-9.07) K/mm3 RBC (4.63-6.08) M/mm3 Hgb (13.7-17.5) gm/L Hct (40.1-51.0) % MCV (79.0-92.2) fl MCH (25.7-32.2) pg MCHC (32.2-35.5) g/dl RDW Std Deviation (35.1-43.9) fL Plt Count (163-337) K/mm3 MPV (9.4-12.3) fl Neut % (Auto) (34.0-67.9) % Lymph % (Auto) (21.8-53.1) % [place] % (Auto) (5.3-12.2) % Eos % (Auto) (0.8-7.0) Baso % (Auto) (0.1-1.2) % Neut # (Auto) (1.78-5.38) K/mm3 Lymph # (Auto) (1.32-3.57) K/mm3 [place] # (Auto) (0.30-0.82) K/mm3 Eos # (Auto) (0.04-0.54) K/mm3 Baso # (Auto) (0.01-0.08) K/mm3 Sodium (136-145) mEq/L Potassium (3.5-5.1) mEq/L Chloride (98-107) mEq/L Carbon Dioxide (21-32) mEq/L Anion Gap (5-15) BUN (7-18) mg/dL Creatinine (0.7-1.3) mg/dL Est Cr Clr Drug Dosing mL/min Estimated GFR (MDRD) (>60) mL/min BUN/Creatinine Ratio (14-18) Glucose (83-115) mg/dL POC Glucose 195 H (83-110) mg/dL Calcium (8.5-10.1) mg/dL Magnesium (1.8-2.4) mg/dl Blood Type A NEGATIVE Gel Antibody Screen Negative Crossmatch See Detail See Detail 03/08/19 03/08/19 03/09/19 Range/Units 16:49 20:51 06:37 WBC (4.23-9.07) K/mm3 RBC (4.63-6.08) M/mm3 Hgb (13.7-17.5) gm/L Hct (40.1-51.0) % MCV (79.0-92.2) fl MCH (25.7-32.2) pg MCHC (32.2-35.5) g/dl RDW Std Deviation (35.1-43.9) fL Plt Count (163-337) K/mm3 MPV (9.4-12.3) fl Neut % (Auto) (34.0-67.9) % Lymph % (Auto) (21.8-53.1) % [place] % (Auto) (5.3-12.2) % Eos % (Auto) (0.8-7.0) Baso % (Auto) (0.1-1.2) % Neut # (Auto) (1.78-5.38) K/mm3 Lymph # (Auto) (1.32-3.57) K/mm3 [place] # (Auto) (0.30-0.82) K/mm3 Eos # (Auto) (0.04-0.54) K/mm3 Baso # (Auto) (0.01-0.08) K/mm3 Sodium (136-145) mEq/L Potassium (3.5-5.1) mEq/L Chloride (98-107) mEq/L Carbon Dioxide (21-32) mEq/L Anion Gap (5-15) BUN (7-18) mg/dL Creatinine (0.7-1.3) mg/dL Est Cr Clr Drug Dosing mL/min Estimated GFR (MDRD) (>60) mL/min BUN/Creatinine Ratio (14-18) Glucose (83-115) mg/dL POC Glucose 219 H 131 H 98 (83-110) mg/dL Calcium (8.5-10.1) mg/dL Magnesium (1.8-2.4) mg/dl Blood Type Gel Antibody Screen Crossmatch 03/09/19 03/09/19 Range/Units 08:19 08:19 WBC 9.79 H (4.23-9.07) K/mm3 RBC 3.39 L (4.63-6.08) M/mm3 Hgb 9.2 L D (13.7-17.5) gm/L Hct 30.5 L (40.1-51.0) % MCV 90.0 (79.0-92.2) fl MCH 27.1 (25.7-32.2) pg MCHC 30.2 L (32.2-35.5) g/dl RDW Std Deviation 59.1 H (35.1-43.9) fL Plt Count 260 (163-337) K/mm3 MPV 8.5 L (9.4-12.3) fl Neut % (Auto) 72.7 H (34.0-67.9) % Lymph % (Auto) 15.6 L (21.8-53.1) % [place] % (Auto) 11.4 (5.3-12.2) % Eos % (Auto) 0.1 L (0.8-7.0) Baso % (Auto) 0.0 L (0.1-1.2) % Neut # (Auto) 7.11 H (1.78-5.38) K/mm3 Lymph # (Auto) 1.53 (1.32-3.57) K/mm3 [place] # (Auto) 1.12 H (0.30-0.82) K/mm3 Eos # (Auto) 0.01 L (0.04-0.54) K/mm3 Baso # (Auto) 0.00 L (0.01-0.08) K/mm3 Sodium 139 (136-145) mEq/L Potassium 3.7 (3.5-5.1) mEq/L Chloride 99 (98-107) mEq/L Carbon Dioxide 33 H (21-32) mEq/L Anion Gap 10.7 (5-15) BUN 50 H (7-18) mg/dL Creatinine 1.0 (0.7-1.3) mg/dL Est Cr Clr Drug Dosing 67.98 mL/min Estimated GFR (MDRD) > 60 (>60) mL/min BUN/Creatinine Ratio 50.0 H (14-18) Glucose 97 (83-115) mg/dL POC Glucose (83-110) mg/dL Calcium 8.7 (8.5-10.1) mg/dL Magnesium 2.1 (1.8-2.4) mg/dl Blood Type Gel Antibody Screen Crossmatch Carlos Results Last 24 Hours: Microbiology 03/03/19 20:30 Aerobic Blood Culture - Preliminary Blood - Venous - Lab Draw NO GROWTH AFTER 5 DAYS Anaerobic Blood Culture - Preliminary NO GROWTH AFTER 5 DAYS 03/03/19 18:17 Aerobic Blood Culture - Preliminary Blood - Venous NO GROWTH AFTER 5 DAYS Anaerobic Blood Culture - Preliminary NO GROWTH AFTER 5 DAYS Med Orders - Current: Current Medications Acetaminophen (Tylenol) 650 mg PO TID [facility] Last Admin: 03/09/19 09:08 Dose: 650 mg Hydrocodone Bitart/Acetaminophen ([place] 325-5 Mg) 1 tab PO Q4H PRN PRN Reason: Pain (moderate 4-6) Last Admin: 03/07/19 23:25 Dose: 1 tab Albuterol/Ipratropium (Duoneb 3.0-0.5 Mg/3 Ml) 3 ml NEB Q4H PRN PRN Reason: Shortness Of Breath/wheezing Last Admin: 03/06/19 20:22 Dose: 3 ml Ascorbic Acid (Vitamin C) 500 mg PO BID [facility] Last Admin: 03/09/19 09:08 Dose: 500 mg Azithromycin (Zithromax) 500 mg PO Q24H [facility] Last Admin: 03/08/19 21:00 Dose: 500 mg Bisacodyl (Dulcolax) 5 mg PO DAILY PRN PRN Reason: Constipation Dextrose/Water (Dextrose 50% In Water) 50 ml IVPUSH ASDIRECTED PRN PRN Reason: Hypoglycemia Dorzolamide HCl (Trusopt 2% Ophth Soln) 0 ml EYEBOTH BID [facility] Last Admin: 03/09/19 09:00 Dose: 1 drop Furosemide (Lasix) 20 mg IVPUSH DAILY [facility] Last Admin: 03/09/19 08:51 Dose: 20 mg Furosemide (Lasix) 10 mg IVPUSH 2100 [facility] Stop: 03/10/19 21:01 Last Admin: 03/08/19 21:03 Dose: 10 mg Hydrochlorothiazide (Hydrochlorothiazide) 12.5 mg PO BEDTIME [facility] Last Admin: 03/08/19 21:00 Dose: 12.5 mg Hydromorphone HCl (Dilaudid) 0.5 mg IVPUSH Q2H PRN PRN Reason: Pain (severe 7-10) Last Admin: 03/07/19 00:07 Dose: 0.5 mg Promethazine HCl 6.25 mg/ (Sodium Chloride) 50.25 mls @ 100 mls/hr IV Q6H PRN PRN Reason: Nausea/Vomiting Ceftriaxone Sodium 1 gm/ (Sodium Chloride) 100 mls @ 200 mls/hr IV Q24H [facility] Last Admin: 03/08/19 21:28 Dose: 200 mls/hr Insulin Glargine (Lantus) 12 unit SUBCUT BID [facility] Last Admin: 03/09/19 08:58 Dose: 12 unit Insulin Human Lispro (Humalog) 0 unit SUBCUT QIDACANDBED [facility]; Protocol Last Admin: 03/09/19 07:04 Dose: Not Given Latanoprost (Xalatan 0.005% Ophth Soln) 0 ml EYEBOTH BEDTIME [facility] Last Admin: 03/08/19 21:04 Dose: 1 drop Levothyroxine Sodium (Levothyroxine) 25 mcg PO ACBREAKFAST [facility] Last Admin: 03/09/19 07:40 Dose: 25 mcg Loratadine (Claritin) 10 mg PO BEDTIME [facility] Last Admin: 03/08/19 21:00 Dose: 10 mg Lorazepam (Ativan) 0.25 mg IV Q6H PRN PRN Reason: Anxiety Last Admin: 03/09/19 01:21 Dose: 0.25 mg Magnesium Oxide (Magnesium Oxide) 400 mg PO BID [facility] Last Admin: 03/09/19 09:07 Dose: 400 mg Melatonin (Melatonin) 6 mg PO BEDTIME [facility] Last Admin: 03/08/19 21:03 Dose: 6 mg Methylprednisolone Sodium Succinate (Solu-Medrol) 80 mg IVPUSH Q12H [facility] Last Admin: 03/09/19 08:54 Dose: 80 mg Metoprolol Tartrate (Lopressor) 12.5 mg PO BID [facility] Last Admin: 03/09/19 09:07 Dose: 12.5 mg Morphine Sulfate (Morphine) 1 mg IVPUSH Q4H PRN PRN Reason: dyspnea/severe chest pain Last Admin: 03/07/19 16:32 Dose: 1 mg Ondansetron HCl (Zofran) 4 mg IV Q6H PRN PRN Reason: Nausea/Vomiting Pantoprazole Sodium (Protonix) 40 mg PO Q12H [facility] Last Admin: 03/09/19 09:08 Dose: 40 mg Albuterol/Ipratropium Pt's Own Medication 0 each INH QID [facility] Last Admin: 03/08/19 20:53 Dose: 1 each Hydrocortisone Acetate [Vanicream Hc] 0 each TOP TID [facility] Last Admin: 03/08/19 21:04 Dose: 1 each Polysaccharide Iron Complex (Ferrex 150) 300 mg PO BID [facility] Last Admin: 03/09/19 09:08 Dose: 300 mg Senna (Senna) 8.6 mg PO DAILY PRN PRN Reason: Constipation Senna/Docusate Sodium (Senna Plus) 1 tab PO BID PRN PRN Reason: Constipation Sodium Chloride (Saline Flush) 10 ml FLUSH ASDIRECTED PRN PRN Reason: Keep Vein Open Last Admin: 03/03/19 17:04 Dose: 10 ml Triamcinolone Acetonide (Triamcinolone Acetonide 0.1% Crm) 0 gm TOP BID [facility] Last Admin: 03/08/19 21:04 Dose: 1 applic Discontinued Medications Acetaminophen (Tylenol) 650 mg PO ONETIME ONE Stop: 03/03/19 17:04 Last Admin: 03/03/19 17:10 Dose: 650 mg Albuterol/Ipratropium (Duoneb 3.0-0.5 Mg/3 Ml) 3 ml NEB Q6H PRN PRN Reason: Dyspnea Last Admin: 03/03/19 20:56 Dose: 3 ml Docusate Sodium (Colace) 100 mg PO BID PRN PRN Reason: Constipation Furosemide (Lasix) 60 mg IVPUSH NOW ONE Stop: 03/03/19 17:00 Last Admin: 03/03/19 17:04 Dose: 60 mg Furosemide (Lasix) 10 mg IVPUSH NOW ONE Stop: 03/03/19 23:55 Last Admin: 03/04/19 00:12 Dose: 10 mg Furosemide (Lasix) 10 mg IVPUSH NOW ONE Stop: 03/04/19 08:46 Last Admin: 03/04/19 10:50 Dose: 10 mg Furosemide (Lasix) 20 mg IVPUSH ONETIME ONE Stop: 03/04/19 15:58 Last Admin: 03/04/19 17:43 Dose: 20 mg Furosemide (Lasix) 20 mg IVPUSH ONETIME ONE Stop: 03/05/19 12:10 Last Admin: 03/05/19 12:46 Dose: 20 mg Furosemide (Lasix) 20 mg IVPUSH ONETIME ONE Stop: 03/05/19 23:00 Last Admin: 03/06/19 00:03 Dose: 20 mg Furosemide (Lasix) 10 mg IVPUSH 1800 [facility] Stop: 03/10/19 18:01 Last Admin: 03/08/19 19:54 Dose: Not Given Hydrochlorothiazide (Hydrochlorothiazide) 12.5 mg PO DAILY [facility] Last Admin: 03/05/19 08:14 Dose: 12.5 mg Ceftriaxone Sodium 2 gm/ (Sodium Chloride) 100 mls @ 200 mls/hr IV ONETIME ONE Stop: 03/03/19 18:43 Last Admin: 03/03/19 18:25 Dose: Not Given Ceftriaxone Sodium 2 gm/ (Sodium Chloride) 100 mls @ 200 mls/hr IV ONETIME ONE Stop: 03/03/19 18:53 Last Admin: 03/03/19 18:56 Dose: 200 mls/hr Magnesium Sulfate 2 gm/ Premix 50 mls @ 25 mls/hr IV NOW STA Stop: 03/04/19 00:58 Last Admin: 03/03/19 23:42 Dose: 25 mls/hr Azithromycin 500 mg/ Sodium (Chloride) 250 mls @ 250 mls/hr IV Q24H [facility] Last Admin: 03/07/19 21:19 Dose: 250 mls/hr Sodium Chloride (Normal Saline) 250 mls @ 100 mls/hr IV ASDIRECTED [facility] Insulin Glargine (Lantus) 10 unit SUBCUT BID [facility] Last Admin: 03/08/19 12:34 Dose: Not Given Insulin Human Lispro (Humalog) 0 unit SUBCUT QIDACANDBED PRN; Protocol PRN Reason: Hyperglycemia Melatonin (Melatonin) 6 mg PO DAILY [facility] Methylprednisolone Sodium Succinate (Solu-Medrol) 125 mg IVPUSH Q6H [facility] Last Admin: 03/07/19 17:38 Dose: 125 mg Methylprednisolone Sodium Succinate (Solu-Medrol) 80 mg IVPUSH ONETIME ONE Stop: 03/07/19 23:01 Last Admin: 03/07/19 22:30 Dose: 80 mg Methylprednisolone Sodium Succinate (Solu-Medrol) 80 mg IVPUSH Q8HR [facility] Last Admin: 03/08/19 16:18 Dose: 80 mg Miscellaneous Information (Remove Patch) 1 ea TRDERM Q72H [facility] Last Admin: 03/04/19 10:53 Dose: Not Given Nicotine (Habitrol) 21 mg TRDERM Q72H [facility] Last Admin: 03/04/19 10:53 Dose: Not Given Non-Formulary Medication (Acetaminophen) 1,000 mg PO TID PRN PRN Reason: Pain Pantoprazole Sodium (Protonix Iv) 40 mg IV Q12HR [facility] Last Admin: 03/04/19 08:53 Dose: 40 mg Rivaroxaban (Xarelto) 20 mg PO DAILY [facility] Last Admin: 03/05/19 08:15 Dose: 20 mg Rivaroxaban (Xarelto) 20 mg PO DAILY [facility] Senna (Senna) 8.6 mg PO BID [facility] Last Admin: 03/03/19 21:26 Dose: 8.6 mg Triamcinolone Acetonide (Triamcinolone Acetonide 0.1% Crm) 0 gm TOP DAILY [facility] Zolpidem Tartrate (Ambien) 5 mg PO BEDTIME PRN PRN Reason: Sleep - Exam Quality Assessment: Supplemental Oxygen General: Alert, Cooperative, No Acute Distress HEENT: Pupils Equal, Pupils Reactive, EOMI, Mucous Membr. Moist/[place] Neck: Supple Lungs: Normal Respiratory Effort, Decreased Breath Sounds, Crackles, Rhonchi Cardiovascular: Irregular Rhythm GI/Abdominal Exam: Normal Bowel Sounds, Soft, Non-Tender, No Organomegaly, No Distention, No Abnormal Bruit (Male) Exam: Other (indwelling scott catheter) Back Exam: Normal Inspection, Decreased Range of Motion Extremities: Normal Inspection, Non-Tender, Normal Capillary Refill, Limited Range of Motion Peripheral Pulses: 1+: Dorsalis Pedis (L), Dorsalis Pedis (R) Skin: Warm, Dry, Intact, Ecchymosis Neurological: No New Focal Deficit. No: Normal Gait Psy/Mental Status: Alert, Normal Affect, Normal Mood - Problem List Review Problem List Initiated/Reviewed/Updated: Yes - My Orders Last 24 Hours: My Active Orders 03/08/19 21:00 Ascorbic Acid [Vitamin C] 500 mg PO BID Azithromycin [Zithromax] 500 mg PO Q24H Furosemide [Lasix] 10 mg IVPUSH 2100 [place] Polysaccharides Complex [Ferrex 150] 300 mg PO BID 03/09/19 04:30 Remove Scott Catheter [Urinary Catheter Removal] [RC] Per Unit Routine 03/09/19 09:00 methylPREDNISolone Sod Succ [Solu-MEDROL] 80 mg IVPUSH Q12H 03/10/19 05:11 BMP [BASIC METABOLIC PANEL,BMP] [CHEM] AM CBC WITH AUTO DIFF [HEME] AM MG [MAGNESIUM] [CHEM] AM 03/11/19 05:11 BMP [BASIC METABOLIC PANEL,BMP] [CHEM] AM CBC WITH AUTO DIFF [HEME] AM MG [MAGNESIUM] [CHEM] AM 03/12/19 05:11 BMP [BASIC METABOLIC PANEL,BMP] [CHEM] AM CBC WITH AUTO DIFF [HEME] AM MG [MAGNESIUM] [CHEM] AM 03/13/19 05:11 BMP [BASIC METABOLIC PANEL,BMP] [CHEM] AM MG [MAGNESIUM] [CHEM] AM 03/14/19 05:11 BMP [BASIC METABOLIC PANEL,BMP] [CHEM] AM MG [MAGNESIUM] [CHEM] AM - Plan Plan:: Assessment: Acute: Heart Failure - Carries a hx/o HF with Reduced EF 45-50% ([facility] - Had [place] in 1992 with balloon angioplasty in [place] - Statin was discontinued due to little benefit per [place] note - ProBNP of 8345-->4202-->7381-->8782 - Received diuretics in ED - Repeat CXR this AM shows improved lungs - Strict Is/Os due to 2lbs weight gain - Additional loop diuretics at night time - Heart failure regimen: diuretics, salt/fluids restriction, and daily weight check Respiratory Failure, Continues to Improve - Acute on chronic - Has hx/o COPD with baseline supplemental O2 of 2-3 L - ABG shows hypoxemia with pH of 7.43 and pO2 of 58 - IV Solumedrol 125 mg IVP Q6H--> 80 mg IPV Q8H - He is now on 3L simple mask - He is now more compliant with NIPPV CAP - Had aspiration pneumonia which lead to bacteremia when he was in [place] - Has baseline dysphagia - Continue IV Rocephin daily and now Oral Azithromycin Daily - CXR shows atelectasis Anemia - Hgb of 8.0-->8.2-->7.4-->7.2-->9.2 - No baseline for comparison - Has hx/o normocytic anemia - On Xarelto for stroke prophylaxis - Iron and Vit C Supplement - Heme-occult test - Monitor H/H DM2 - BS fairly controlled - Accu-check QID with High Dose ISS - Change IV Solumedrol to 80 mg Q12h - Lantus 12 units SubQ BID [facility] - He is at terminal stage; poor overall state of health - He is not receptive to comfort measures - SW/CM to educate Hospice/Palliative Care services Resolved: S/p Hypomagnesemia - Mg of 1.6--> 1.9 - 2/2 inadequate intake - Replete and monitor Chronic: Chronic Hypoxic Respiratory Failure 2-3 L of NC, COPD, HF with Reduced EF 45-50%, Normocytic Anemia, Cardiomyopathy non PM Candidate, Chronic Atrial Fibrillation on Xarelto, CAD, Dysphagia, Urinary Retention, Chronic Encephalopathy, Hx/o Dermatitis, Hx/o Melanoma In Situ, and Hx/o Cardiogenic Shock 2/2 Bradycardia Plan: He is clinically stable and this is likely the best I could get to his baseline Routine AM labs AHA/ADA diet Fall precautions RT/OT/PT to asses and treat Continue CPAP; wrote rx for it for [place] use SW/CM for d/c planning Code status: DNR/DNI Additional orders as above Prognosis remains guarded Discharge in AM
[2019-03-09] MEDS: Triamcinolone Acetonide 0.1% Crm 15 GM Tube TOP SCH ×2 (09:13→22:12)
[2019-03-09] MEDS: HYDROCORTISONE ACETATE TOP SCH ×3 (09:14→22:11)
[2019-03-09] MEDS: IPRATROPIUM INH SCH ×4 (09:24→20:22)
[2019-03-09] MEDS: ALBUTEROL INH SCH ×4 (09:24→20:22)
[2019-03-09] MEDS: Melatonin 3 MG Tab PO SCH (22:03)
[2019-03-09] MEDS: Hydrochlorothiazide 12.5 MG Cap PO SCH (22:05)
[2019-03-09] MEDS: Loratadine 10 MG Tab PO SCH (22:05)
[2019-03-09] MEDS: Azithromycin 250 MG Tab PO SCH (22:06)
[2019-03-09] MEDS: cefTRIAXone 1 GM in Sodium Chloride 0.9% 100 ML IV SCH (22:11)
[2019-03-09] MEDS: Latanoprost 0.005% Ophth Soln 2.5 ML Bottle EYEBOTH SCH (22:12)
[2019-03-10] MEDS: LORazepam 2 MG/ML SDV IV PRN (01:59)
[2019-03-10] MEDS: Levothyroxine 25 MCG Tab PO SCH (06:51)
[2019-03-10] MEDS: Insulin Lispro 100 Units/ML 3 ML Vial SUBCUT SCH ×2 (07:06→11:30)
[2019-03-10] MEDS: ALBUTEROL INH SCH (08:26)
[2019-03-10] MEDS: IPRATROPIUM INH SCH (08:26)
--- NOTE | 2019-03-10 09:02 | PCM.DCSUM1 ---
Discharge Summary - Hospital Course HPI Initial Comments: This is a 73 yo elderly white male with past medical hx/o Chronic Hypoxic Respiratory Failure 2-3 L of NC, COPD, HF with Reduced EF 45-50%, Normocytic Anemia, Cardiomyopathy non PM Candidate, Chronic Atrial Fibrillation on Xarelto , CAD, DM2, Dysphagia, Urinary Retention, Chronic Encephalopathy, Hx/o Dermatitis, Hx/o Melanoma In Situ, and Hx/o Cardiogenic Shock 2/2 Bradycardia who comes in for worsening shortness of breath and difficulty breathing for over a week associated with wet cough, decreased appetite, malaise, generalized weakness, fatigue, chills, urinary frequency and leg edema. He states he was up all night 2 nights ago due to inability to lay flat. His symptoms is worse with activity and improves with rest. Patient was recently hospitalized in [place] and stayed there for over 80-90 days due to bacteremia and similar symptoms of respiratory issues per family member at bedside. His initial work up in ED showed a Hgb of 8.0, Hct of 27.5, MCHC of 29.1, RDW of 57 and Monocytes of 11%. His Chemistry was significant for BUN of 20, BS of 119, Mg of 1.6, Alk Phos of 139, CRP of 5.3, Pro BNP of 8345, and Albumin of 2.6. His UA was negative for UTI. Hi chest x-ray report read as severe pulmonary vascular congestion. Patient was admitted overnight for medical management of acute congestive heart failure. Diagnosis: Stroke: No Modified Alejandro Scale: No Symptoms at All Modified Alejandro Scale Score: 0 - Discharge Data Discharge Date: 03/10/19 Discharge Disposition: DC/Tfer to Other Condition: Good - Discharge Diagnosis/Problem(s) (1) Acute exacerbation of CHF (congestive heart failure) SNOMED Code(s): 999535826, 26099722671800 ICD Code: I50.9 - HEART FAILURE, UNSPECIFIED Status: Acute Qualifiers: Heart failure type: systolic Qualified Code(s): I50.23 - Acute on chronic systolic (congestive) heart failure (2) Respiratory failure with hypoxia and hypercapnia SNOMED Code(s): 02178963 ICD Code: J96.91 - RESPIRATORY FAILURE, UNSPECIFIED WITH HYPOXIA; J96.92 - RESPIRATORY FAILURE, UNSPECIFIED WITH HYPERCAPNIA Status: Acute Qualifiers: Chronicity: acute on chronic Qualified Code(s): J96.21 - Acute and chronic respiratory failure with hypoxia; J96.22 - Acute and chronic respiratory failure with hypercapnia (3) Hypomagnesemia SNOMED Code(s): 373175468 ICD Code: E83.42 - HYPOMAGNESEMIA Status: Resolved Priority: Low (4) Anemia SNOMED Code(s): 741478259 ICD Code: D64.9 - ANEMIA, UNSPECIFIED Status: Acute Qualifiers: Anemia type: unspecified type Qualified Code(s): D64.9 - Anemia, unspecified (5) End of life care SNOMED Code(s): 042089083, 837116158 ICD Code: Z51.5 - ENCOUNTER FOR PALLIATIVE CARE Status: Acute (6) Dysphagia causing pulmonary aspiration with swallowing SNOMED Code(s): 32859819, 24038677 ICD Code: R13.19 - OTHER DYSPHAGIA Status: Chronic - Patient Summary/Data Operative Procedure(s) Performed: None Complications: None Consults: Consultations 03/03/19 19:04 Consult to Case Management/Freight Air Brake Fitter [CONS] Routine Consult to Spiritual Care [CONS] Routine OT Evaluation and Treatment [CONS] Routine PT Evaluation and Treatment [CONS] Routine Respiratory Care Assess and Treatment [CONS] Routine 03/04/19 10:27 Consult to Dietary [Consult to Clothes Drier Assembler] [CONS] Routine Labs Pending at D/C: None Recommended Follow-up Testing/Procedures: None Planned Operative Procedure(s) after DC: None Hospital Course: Patient was primarily admitted for acute on chronic congestive heart failure due to significant weight gain since his recent hospitalization in [place]. Per family, he was not on salt or fluid restrictions. However he was put on heart failure regimen to include diuretics, salt/fluid restrictions, daily weight check as well as strict Is/Os and he slowly improved on this regimen. His hospitalization was complicated by community acquired pneumonia and acute on chronic respiratory failure. However he was put on NIPPV and appropriate intravenous antibiotics. His compliance with bedside activities and treatment were marginal at best but as he was educated more about the complexity of his presenting illness, he became more agreeable to treatment. His hospital course was prolonged mainly from his complex medical issues. He received 2 units of blood due to anemia and the transfusion not only improved his Hgb level but his overall state of health. He weighed 87 kg on presentation and he left the facility with a weight of 83 kg. Once medically stable, he was discharged to [facility] for SNF/Rehab. He was advised to comply with discharge instructions and to follow up with his family doctor. He was further advised to come back or seek immediate care should his symptoms persist or get worse. - Patient Instructions Diet: Heart Healthy Diet, Low Sodium, Fluid Restriction (2 grams), Diabetic Diet Fluid Restriction: 2000 mL Activity: As Tolerated Driving: Do Not Drive Showering/Bathing: May Shower in 3 Days Notify Provider of: Fever, Increased Pain, Swelling and Redness, Drainage, Nausea and/or Vomiting Other/Special Instructions: - Please take all new medications as directed. - Resume routine home medications and activity as tolerated per PT/OT. - Use flutter valve and incentive spirometry as directed for 1 week. - Take 2 tabs of lasix for increased shortness of breath or edema. - Follow daily salt and fluid restrictions. - Recommend repeat labs and x-ray through your family doctor's office. - Use NIPPV at bedtime as directed. - Follow up with your doctor 1 week with repeat labs (CBC,BMP, Mg). - Consider Hospice/Palliative Care. - Come back or seek immediate care should your symptoms persist or get worse - Discharge Plan *PRESCRIPTION DRUG MONITORING PROGRAM REVIEWED*: Not Applicable *COPY OF PRESCRIPTION DRUG MONITORING REPORT IN PATIENT TAHIR: Not Applicable Prescriptions/Med Rec: Ascorbic Acid [Vitamin C] 250 mg PO DAILY #15 tab.chew hydroCHLOROthiazide [Hydrochlorothiazide] 12.5 mg PO ASDIRECTED #30 cap Iron Polysaccharides Complex [Ferrex 150] 300 mg PO DAILY #30 cap predniSONE 10 mg PO .TAPER #28 tab Home Medications: Home Meds Acetaminophen [Mapap] 1,000 mg PO TID PRN 03/03/19 [History] Acetaminophen [Tylenol Extra Strength] 500 mg PO TID 03/03/19 [History] Albuterol/Ipratropium [Combivent Respimat] 4 gm IH QID 03/03/19 [History] Dorzolamide HCl/Pf [Dorzolamide 2% Eye Drop] 1 drop EYEBOTH BID 03/03/19 [ History] Hydrocortisone Acetate [Vanicream Hc] 57 gm TP TID 03/03/19 [History] Ipratropium/Albuterol Sulfate [Iprat-Albut 0.5-3(2.5) mg/3 ml] 3 ml IH Q6H PRN 03/03/19 [History] Latanoprost/Pf [Latanoprost 0.005% Eye Drop] 1 drop EYEBOTH BEDTIME 03/03/19 [ History] Levothyroxine 25 mcg PO ACBREAKFAST 03/03/19 [History] Lisinopril 5 mg PO DAILY 03/03/19 [History] Loratadine 10 mg PO BEDTIME 03/03/19 [History] Melatonin 6 mg PO BEDTIME 03/03/19 [History] Metoprolol Tartrate 12.5 mg PO BID 03/03/19 [History] Nicotine [Nicotine Patch] 1 each TD DAILY 03/03/19 [History] Rivaroxaban [Xarelto] 20 mg PO DAILY 03/03/19 [History] Sennosides [Senna] 8.6 mg PO DAILY PRN 03/03/19 [History] Triamcinolone Acetonide [Triamcinolone Acetonide 0.1% Crm] 1 applic TOP BID [History] Ascorbic Acid [Vitamin C] 250 mg PO DAILY #15 tab.chew 03/10/19 [Rx] Furosemide [Lasix] 20 mg PO ASDIRECTED #60 03/10/19 [Rx] Iron Polysaccharides Complex [Ferrex 150] 300 mg PO DAILY #30 cap 03/10/19 [Rx] hydroCHLOROthiazide [Hydrochlorothiazide] 12.5 mg PO ASDIRECTED #30 cap [Rx] predniSONE 10 mg PO .TAPER #28 tab 03/10/19 [Rx] Oxygen Therapy Mode: Nasal Cannula Patient Handouts: Anemia, Hypomagnesemia, Heart Failure Action Plan, Acute Respiratory Failure, Adult, End-of-Life Care, Heart Failure Exacerbation, Community-Acquired Pneumonia, Adult, Aoca-ay-Cbvh Referrals: Logan Box MD [Primary Care Provider] - 03/17/19 8:15 am - Discharge Summary/Plan Comment DC Time >30 min.: Yes (35 mins) Discharge Summary/Plan Comment: Discharge to Home - General Info Date of Service: 03/10/19 Admission Dx/Problem (Free Text: Admission Diagnosis/Problem Admission Diagnosis/Problem Congestive heart failure Subjective Update: Follow Up Functional Status: Reports: Pain Controlled, Tolerating Diet, Urinating. Denies : New Symptoms - Review of Systems General: Reports: Malaise. Denies: Fever, Chills HEENT: Reports: No Symptoms Pulmonary: Reports: Shortness of Breath (baseline) Cardiovascular: Denies: Chest Pain, Dyspnea on Exertion, Lightheadedness Gastrointestinal: Reports: Difficulty Swallowing (baseline). Denies: Abdominal Pain, Nausea, Vomiting Genitourinary: Reports: No Symptoms Musculoskeletal: Reports: No Symptoms Skin: Reports: Bruising Neurological: Reports: Difficulty Walking, Weakness, Gait Disturbance. Denies: Confusion Psychiatric: Denies: Depression, Anxiety, Agitation, Hallucinations - Patient Data Vitals - Most Recent: Last Vital Signs Temp 36.2 C 03/10/19 04:31 Pulse 83 03/10/19 04:31 Resp 22 H 03/10/19 04:31 BP 168/88 H 03/10/19 04:31 Pulse Ox 96 03/10/19 08:26 Weight - Most Recent: 83.007 kg I&O - Last 24 hours: Intake & Output 03/09/19 03/10/19 03/10/19 22:59 06:59 14:59 Intake Total 1040 500 Output Total 600 550 Balance 440 -50 Lab Results - Last 24 hrs: Laboratory Results - last 24 hr 03/09/19 03/09/19 03/09/19 Range/Units 08: 11:55 17:43 WBC (4.23-9.07) K/mm3 RBC (4.63-6.08) M/mm3 Hgb (13.7-17.5) gm/L Hct (40.1-51.0) % MCV (79.0-92.2) fl MCH (25.7-32.2) pg MCHC (32.2-35.5) g/dl RDW Std Deviation (35.1-43.9) fL Plt Count (163-337) K/mm3 MPV (9.4-12.3) fl Neut % (Auto) (34.0-67.9) % Lymph % (Auto) (21.8-53.1) % [place] % (Auto) (5.3-12.2) % Eos % (Auto) (0.8-7.0) Baso % (Auto) (0.1-1.2) % Neut # (Auto) (1.78-5.38) K/mm3 Lymph # (Auto) (1.32-3.57) K/mm3 [place] # (Auto) (0.30-0.82) K/mm3 Eos # (Auto) (0.04-0.54) K/mm3 Baso # (Auto) (0.01-0.08) K/mm3 Sodium 139 (136-145) mEq/L Potassium 3.7 (3.5-5.1) mEq/L Chloride 99 (98-107) mEq/L Carbon Dioxide 33 H (21-32) mEq/L Anion Gap 10.7 (5-15) BUN 50 H (7-18) mg/dL Creatinine 1.0 (0.7-1.3) mg/dL Est Cr Clr Drug Dosing 67.98 mL/min Estimated GFR (MDRD) > 60 (>60) mL/min BUN/Creatinine Ratio 50.0 H (14-18) Glucose 97 (83-115) mg/dL POC Glucose 147 H 150 H (83-110) mg/dL Calcium 8.7 (8.5-10.1) mg/dL Magnesium 2.1 (1.8-2.4) mg/dl 03/09/19 03/10/19 03/10/19 Range/Units 21:31 05:35 05:35 WBC 7.01 (4.23-9.07) K/mm3 RBC 3.71 L (4.63-6.08) M/mm3 Hgb 10.0 L (13.7-17.5) gm/L Hct 33.3 L (40.1-51.0) % MCV 89.8 (79.0-92.2) fl MCH 27.0 (25.7-32.2) pg MCHC 30.0 L (32.2-35.5) g/dl RDW Std Deviation 59.0 H (35.1-43.9) fL Plt Count 282 (163-337) K/mm3 MPV 9.1 L (9.4-12.3) fl Neut % (Auto) 83.1 H (34.0-67.9) % Lymph % (Auto) 12.3 L (21.8-53.1) % [place] % (Auto) 4.0 L (5.3-12.2) % Eos % (Auto) 0 L (0.8-7.0) Baso % (Auto) 0.0 L (0.1-1.2) % Neut # (Auto) 5.83 H (1.78-5.38) K/mm3 Lymph # (Auto) 0.86 L (1.32-3.57) K/mm3 [place] # (Auto) 0.28 L (0.30-0.82) K/mm3 Eos # (Auto) 0.00 L (0.04-0.54) K/mm3 Baso # (Auto) 0.00 L (0.01-0.08) K/mm3 Sodium 136 (136-145) mEq/L Potassium 3.8 (3.5-5.1) mEq/L Chloride 97 L (98-107) mEq/L Carbon Dioxide 33 H (21-32) mEq/L Anion Gap 9.8 (5-15) BUN 47 H (7-18) mg/dL Creatinine 1.0 (0.7-1.3) mg/dL Est Cr Clr Drug Dosing 67.98 mL/min Estimated GFR (MDRD) > 60 (>60) mL/min BUN/Creatinine Ratio 47.0 H (14-18) Glucose 107 (83-115) mg/dL POC Glucose 173 H (83-110) mg/dL Calcium 8.3 L (8.5-10.1) mg/dL Magnesium 2.0 (1.8-2.4) mg/dl GYPSY Results - Last 24 hrs: Microbiology 03/03/19 20:30 Aerobic Blood Culture - Preliminary Blood - Venous - Lab Draw NO GROWTH AFTER 6 DAYS Anaerobic Blood Culture - Preliminary NO GROWTH AFTER 6 DAYS 03/03/19 18:17 Aerobic Blood Culture - Preliminary Blood - Venous NO GROWTH AFTER 6 DAYS Anaerobic Blood Culture - Preliminary NO GROWTH AFTER 6 DAYS Med Orders - Current: Current Medications Acetaminophen (Tylenol) 650 mg PO TID [facility] Last Admin: 03/09/19 22:06 Dose: 650 mg Hydrocodone Bitart/Acetaminophen ([place] 325-5 Mg) 1 tab PO Q4H PRN PRN Reason: Pain (moderate 4-6) Last Admin: 03/07/19 23:25 Dose: 1 tab Albuterol/Ipratropium (Duoneb 3.0-0.5 Mg/3 Ml) 3 ml NEB Q4H PRN PRN Reason: Shortness Of Breath/wheezing Last Admin: 03/06/19 20:22 Dose: 3 ml Ascorbic Acid (Vitamin C) 500 mg PO BID [facility] Last Admin: 03/09/19 22:06 Dose: 500 mg Azithromycin (Zithromax) 500 mg PO Q24H [facility] Last Admin: 03/09/19 22:06 Dose: 500 mg Bisacodyl (Dulcolax) 5 mg PO DAILY PRN PRN Reason: Constipation Dextrose/Water (Dextrose 50% In Water) 50 ml IVPUSH ASDIRECTED PRN PRN Reason: Hypoglycemia Dorzolamide HCl (Trusopt 2% Ophth Soln) 0 ml EYEBOTH BID [facility] Last Admin: 03/09/19 22:13 Dose: 1 drop Furosemide (Lasix) 20 mg IVPUSH DAILY [facility] Last Admin: 03/09/19 08:51 Dose: 20 mg Furosemide (Lasix) 10 mg IVPUSH 2100 [facility] Stop: 03/10/19 21:01 Last Admin: 03/09/19 22:08 Dose: 10 mg Hydrochlorothiazide (Hydrochlorothiazide) 12.5 mg PO BEDTIME [facility] Last Admin: 03/09/19 22:05 Dose: 12.5 mg Hydromorphone HCl (Dilaudid) 0.5 mg IVPUSH Q2H PRN PRN Reason: Pain (severe 7-10) Last Admin: 03/07/19 00:07 Dose: 0.5 mg Promethazine HCl 6.25 mg/ (Sodium Chloride) 50.25 mls @ 100 mls/hr IV Q6H PRN PRN Reason: Nausea/Vomiting Ceftriaxone Sodium 1 gm/ (Sodium Chloride) 100 mls @ 200 mls/hr IV Q24H [facility] Last Admin: 03/09/19 22:11 Dose: 200 mls/hr Insulin Glargine (Lantus) 12 unit SUBCUT BID [facility] Last Admin: 03/09/19 22:08 Dose: 12 unit Insulin Human Lispro (Humalog) 0 unit SUBCUT QIDACANDBED [facility]; Protocol Last Admin: 03/10/19 07:06 Dose: Not Given Latanoprost (Xalatan 0.005% Ophth Soln) 0 ml EYEBOTH BEDTIME [facility] Last Admin: 03/09/19 22:12 Dose: 1 drop Levothyroxine Sodium (Levothyroxine) 25 mcg PO ACBREAKFAST [facility] Last Admin: 03/10/19 06:51 Dose: 25 mcg Loratadine (Claritin) 10 mg PO BEDTIME [facility] Last Admin: 03/09/19 22:05 Dose: 10 mg Lorazepam (Ativan) 0.25 mg IV Q6H PRN PRN Reason: Anxiety Last Admin: 03/10/19 01:59 Dose: 0.25 mg Magnesium Oxide (Magnesium Oxide) 400 mg PO BID [facility] Last Admin: 03/09/19 22:04 Dose: 400 mg Melatonin (Melatonin) 6 mg PO BEDTIME [facility] Last Admin: 03/09/19 22:03 Dose: 6 mg Methylprednisolone Sodium Succinate (Solu-Medrol) 80 mg IVPUSH Q12H [facility] Last Admin: 03/09/19 22:10 Dose: 80 mg Metoprolol Tartrate (Lopressor) 12.5 mg PO BID [facility] Last Admin: 03/09/19 22:04 Dose: 12.5 mg Morphine Sulfate (Morphine) 1 mg IVPUSH Q4H PRN PRN Reason: dyspnea/severe chest pain Last Admin: 03/07/19 16:32 Dose: 1 mg Ondansetron HCl (Zofran) 4 mg IV Q6H PRN PRN Reason: Nausea/Vomiting Pantoprazole Sodium (Protonix) 40 mg PO Q12H [facility] Last Admin: 03/09/19 22:05 Dose: 40 mg Albuterol/Ipratropium Pt's Own Medication 0 each INH QID [facility] Last Admin: 03/10/19 08:26 Dose: 1 each Hydrocortisone Acetate [Vanicream Hc] 0 each TOP TID [facility] Last Admin: 03/09/19 22:11 Dose: 1 each Polysaccharide Iron Complex (Ferrex 150) 300 mg PO BID [facility] Last Admin: 03/09/19 22:05 Dose: 300 mg Senna (Senna) 8.6 mg PO DAILY PRN PRN Reason: Constipation Senna/Docusate Sodium (Senna Plus) 1 tab PO BID PRN PRN Reason: Constipation Sodium Chloride (Saline Flush) 10 ml FLUSH ASDIRECTED PRN PRN Reason: Keep Vein Open Last Admin: 03/03/19 17:04 Dose: 10 ml Triamcinolone Acetonide (Triamcinolone Acetonide 0.1% Crm) 0 gm TOP BID [facility] Last Admin: 03/09/19 22:12 Dose: 1 applic Discontinued Medications Acetaminophen (Tylenol) 650 mg PO ONETIME ONE Stop: 03/03/19 17:04 Last Admin: 03/03/19 17:10 Dose: 650 mg Albuterol/Ipratropium (Duoneb 3.0-0.5 Mg/3 Ml) 3 ml NEB Q6H PRN PRN Reason: Dyspnea Last Admin: 03/03/19 20:56 Dose: 3 ml Docusate Sodium (Colace) 100 mg PO BID PRN PRN Reason: Constipation Furosemide (Lasix) 60 mg IVPUSH NOW ONE Stop: 03/03/19 17:00 Last Admin: 03/03/19 17:04 Dose: 60 mg Furosemide (Lasix) 10 mg IVPUSH NOW ONE Stop: 03/03/19 23:55 Last Admin: 03/04/19 00:12 Dose: 10 mg Furosemide (Lasix) 10 mg IVPUSH NOW ONE Stop: 03/04/19 08:46 Last Admin: 03/04/19 10:50 Dose: 10 mg Furosemide (Lasix) 20 mg IVPUSH ONETIME ONE Stop: 03/04/19 15:58 Last Admin: 03/04/19 17:43 Dose: 20 mg Furosemide (Lasix) 20 mg IVPUSH ONETIME ONE Stop: 03/05/19 12:10 Last Admin: 03/05/19 12:46 Dose: 20 mg Furosemide (Lasix) 20 mg IVPUSH ONETIME ONE Stop: 03/05/19 23:00 Last Admin: 03/06/19 00:03 Dose: 20 mg Furosemide (Lasix) 10 mg IVPUSH 1800 [facility] Stop: 03/10/19 18:01 Last Admin: 03/08/19 19:54 Dose: Not Given Hydrochlorothiazide (Hydrochlorothiazide) 12.5 mg PO DAILY [facility] Last Admin: 03/05/19 08:14 Dose: 12.5 mg Ceftriaxone Sodium 2 gm/ (Sodium Chloride) 100 mls @ 200 mls/hr IV ONETIME ONE Stop: 03/03/19 18:43 Last Admin: 03/03/19 18:25 Dose: Not Given Ceftriaxone Sodium 2 gm/ (Sodium Chloride) 100 mls @ 200 mls/hr IV ONETIME ONE Stop: 03/03/19 18:53 Last Admin: 03/03/19 18:56 Dose: 200 mls/hr Magnesium Sulfate 2 gm/ Premix 50 mls @ 25 mls/hr IV NOW STA Stop: 03/04/19 00:58 Last Admin: 03/03/19 23:42 Dose: 25 mls/hr Azithromycin 500 mg/ Sodium (Chloride) 250 mls @ 250 mls/hr IV Q24H [facility] Last Admin: 03/07/19 21:19 Dose: 250 mls/hr Sodium Chloride (Normal Saline) 250 mls @ 100 mls/hr IV ASDIRECTED [facility] Insulin Glargine (Lantus) 10 unit SUBCUT BID [facility] Last Admin: 03/08/19 12:34 Dose: Not Given Insulin Human Lispro (Humalog) 0 unit SUBCUT QIDACANDBED PRN; Protocol PRN Reason: Hyperglycemia Melatonin (Melatonin) 6 mg PO DAILY [facility] Methylprednisolone Sodium Succinate (Solu-Medrol) 125 mg IVPUSH Q6H [facility] Last Admin: 03/07/19 17:38 Dose: 125 mg Methylprednisolone Sodium Succinate (Solu-Medrol) 80 mg IVPUSH ONETIME ONE Stop: 03/07/19 23:01 Last Admin: 03/07/19 22:30 Dose: 80 mg Methylprednisolone Sodium Succinate (Solu-Medrol) 80 mg IVPUSH Q8HR [facility] Last Admin: 03/08/19 16:18 Dose: 80 mg Miscellaneous Information (Remove Patch) 1 ea TRDERM Q72H [facility] Last Admin: 03/04/19 10:53 Dose: Not Given Nicotine (Habitrol) 21 mg TRDERM Q72H [facility] Last Admin: 03/04/19 10:53 Dose: Not Given Non-Formulary Medication (Acetaminophen) 1,000 mg PO TID PRN PRN Reason: Pain Pantoprazole Sodium (Protonix Iv) 40 mg IV Q12HR [facility] Last Admin: 03/04/19 08:53 Dose: 40 mg Rivaroxaban (Xarelto) 20 mg PO DAILY [facility] Last Admin: 03/05/19 08:15 Dose: 20 mg Rivaroxaban (Xarelto) 20 mg PO DAILY [facility] Senna (Senna) 8.6 mg PO BID [facility] Last Admin: 03/03/19 21:26 Dose: 8.6 mg Triamcinolone Acetonide (Triamcinolone Acetonide 0.1% Crm) 0 gm TOP DAILY JOANNA Zolpidem Tartrate (Ambien) 5 mg PO BEDTIME PRN PRN Reason: Sleep - Exam Quality Assessment: Reports: Supplemental Oxygen General: Reports: Alert, Oriented, Cooperative HEENT: Reports: Pupils Equal, Pupils Reactive, EOMI, Mucous Membr. Moist/[place] Neck: Reports: Supple Lungs: Reports: Decreased Breath Sounds, Crackles Cardiovascular: Reports: Irregular Rhythm GI/Abdominal Exam: Normal Bowel Sounds, Soft, Non-Tender, No Organomegaly, No Distention, No Abnormal Bruit, No Mass (Male) Exam: Deferred Rectal (Males) Exam: Deferred Back Exam: Reports: Normal Inspection, Decreased Range of Motion Extremities: Non-Tender, Normal Capillary Refill, Limited Range of Motion Skin: Reports: Warm, Dry, Intact Neurological: Reports: No New Focal Deficit (limited but grossly intact). Denies: Normal Gait Psy/Mental Status: Reports: Alert, Normal Affect, Normal Mood
[2019-03-10] MEDS: Insulin Glarg,Human.Rec.Analog 100 UNIT/ML ML SUBCUT SCH (09:37)
[2019-03-10] MEDS: Magnesium Oxide 400 MG Tab PO SCH (09:41)
[2019-03-10] MEDS: Pantoprazole 40 MG Tab.CR PO SCH (09:41)
[2019-03-10] MEDS: Ascorbic Acid 500 MG Tab PO SCH (09:41)
[2019-03-10] MEDS: Acetaminophen 325 MG Tab PO SCH (09:42)
[2019-03-10] MEDS: Metoprolol Tartrate 25 MG Tab PO SCH (09:43)
[2019-03-10] MEDS: Iron Polysaccharides Complex 150 MG Cap PO SCH (09:44)
[2019-03-10] MEDS: Furosemide 20 MG/2 ML VIAL IVPUSH SCH (09:45)
[2019-03-10] MEDS: methylPREDNISolone Sodium Succinate 125 MG/2 ML SDV IVPUSH SCH (09:45)
[2019-03-10] MEDS: Dorzolamide 2% Ophth Soln 10 ML Bottle EYEBOTH SCH (09:47)
== END 2019-03-10 12:00 | disposition other institution (70) | DRG 291 ==
LOC: JD.ED 15:47 → JD.MS 19:44
PROVIDERS: ADMIT Internal Medicine; ATTEND Internal Medicine
PROC: 5A09557 Assistance with Respiratory Ventilation, Greater than 96 Consecutive Hours, Continuous Positive Airway Pressure (ICD-10-PCS; principal; 2019-03-03)
PROC: 30233N1 Transfusion of Nonautologous Red Blood Cells into Peripheral Vein, Percutaneous Approach (ICD-10-PCS; 2019-03-08)
DX: I11.0 Hypertensive heart disease with heart failure (principal); J96.21 Acute and chronic respiratory failure with hypoxia; J96.22 Acute and chronic respiratory failure with hypercapnia; J69.0 Pneumonitis due to inhalation of food and vomit; J44.9 Chronic obstructive pulmonary disease, unspecified; Z66 Do not resuscitate; I10 Essential (primary) hypertension; Z51.5 Encounter for palliative care; I50.23 Acute on chronic systolic (congestive) heart failure; I50.813 Acute on chronic right heart failure; D64.9 Anemia, unspecified; Z79.890 Hormone replacement therapy; Z99.81 Dependence on supplemental oxygen; I42.9 Cardiomyopathy, unspecified; I48.2 Chronic atrial fibrillation; I25.10 Atherosclerotic heart disease of native coronary artery without angina pectoris; E11.9 Type 2 diabetes mellitus without complications; H54.7 Unspecified visual loss; N40.0 Benign prostatic hyperplasia without lower urinary tract symptoms; G89.29 Other chronic pain; M54.9 Dorsalgia, unspecified; M25.519 Pain in unspecified shoulder; E05.90 Thyrotoxicosis, unspecified without thyrotoxic crisis or storm; E83.42 Hypomagnesemia; Z79.01 Long term (current) use of anticoagulants; Z88.8 Allergy status to other drugs, medicaments and biological substances; Z98.49 Cataract extraction status, unspecified eye; Z87.891 Personal history of nicotine dependence; Z79.899 Other long term (current) drug therapy; Z85.820 Personal history of malignant melanoma of skin; Z79.4 Long term (current) use of insulin; Z98.890 Other specified postprocedural states
CPT/HCPCS: 36415; 36600; 71045; 80053; 82553; 82803; 82962; 83735; 83880; 84484; 85007; 85027; 85610; 85730; 86140; 87040; 93005; 96365; 96375; 99285; A9270; J0696; J1940; J7030; 36430; 51702; 80048; 81001; 82272; 85025; 86850; 86900; 86901; 86922; 87641; 93010; 93306; 94640; 94660; 94760; 94761; 97110-GO; 97110-GP; 97116-GP; 97162-GP; 97167-GO; 97530-GO; 97530-GP; C9113; J0456; J1170; J1815-GY; J2060; J2270; J2930; J3475; J7050; J7620-GY; P9016

== ENCOUNTER 2020-03-26 08:49 | Emergency (ER) | payer MEDICARE, MEDICAID ==
--- NOTE | 2020-03-26 10:06 | EDM.PDOC ---
ED HPI GENERAL MEDICAL PROBLEM - General Chief Complaint: ENT Problem Stated Complaint: NOSE BLEED Time Seen by Provider: 03/26/20 09:50 Source of Information: Reports: Patient History Limitations: Reports: No Limitations - History of Present Illness INITIAL COMMENTS - FREE TEXT/NARRATIVE: 74-year-old male presents to the ED from local shelter with a reported persistent right-sided nasal epistaxis since around 0230 hrs. this morning. Per while the blood was running up both sides of his naris and down his throat. Patient wears oxygen at 3 L by nasal cannula at all times. This of course is drying of the nasal mucosa. He denies any trauma to the nose. States that it is been broken when he was under the age of 8. Patient is on Xarelto 20 mg daily for atrial fibrillation. Has not noticed any other bleeding from other tissues such as gums urine or stool. Onset: Today, Sudden Onset Date: 03/26/20 Onset Time: 02:30 Duration: Hour(s):, Getting Worse, Intermittent, Waxing/Waning Location: Reports: Face (Right-sided epistaxis) Quality: Reports: Other Severity: Moderate (No pain) Improves with: Reports: Other (Compression. He has it packed with a bit of gauze at the present time and bleeding is under control) Worsens with: Reports: None Context: Reports: Other (Spontaneous occurrence 0 to 30 hours this morning.). 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) (None.) - Related Data Allergies Allergy/AdvReac Type Severity Reaction Status Date / Time diclofenac Allergy Cannot Verified 03/26/20 09:22 Remember lovastatin Allergy Cannot Verified 03/26/20 09:22 Remember potassium Allergy Cannot Verified 03/26/20 09:22 Remember tramadol Allergy Cannot Verified 03/26/20 09:22 Remember Home Meds: Home Meds Acetaminophen [Mapap] 1,000 mg PO TID PRN 03/03/19 [History] Acetaminophen [Tylenol Extra Strength] 500 mg PO TID 03/03/19 [History] Albuterol/Ipratropium [Combivent Respimat] 4 gm IH QID 03/03/19 [History] Dorzolamide HCl/Pf [Dorzolamide 2% Eye Drop] 1 drop EYEBOTH TID 03/03/19 [History] Hydrocortisone Acetate [Vanicream Hc] 57 gm TP TID 03/03/19 [History] Ipratropium/Albuterol Sulfate [Iprat-Albut 0.5-3(2.5) mg/3 ml] 3 ml IH Q6H PRN 03/03/19 [History] Latanoprost/Pf [Latanoprost 0.005% Eye Drop] 1 drop EYEBOTH BEDTIME 03/03/19 [Hi story] Levothyroxine 50 mcg PO ACBREAKFAST 03/03/19 [History] Melatonin 6 mg PO BEDTIME 03/03/19 [History] Rivaroxaban [Xarelto] 20 mg PO DAILY 03/03/19 [History] Sennosides [Senna] 8.6 mg PO DAILY PRN 03/03/19 [History] Triamcinolone Acetonide [Triamcinolone Acetonide 0.1% Crm] 1 applic TOP BID 03/03/19 [History] Ascorbic Acid [Vitamin C] 250 mg PO DAILY #15 tab.chew 03/10/19 [Rx] Iron Polysaccharides Complex [Ferrex 150] 300 mg PO DAILY #30 cap 03/10/19 [Rx] Dextran 70/Hypromellose [Artificial Tears] 2 drop TOP BID 03/26/20 [History] Furosemide [Lasix] 40 mg PO DAILY 03/26/20 [History] Insulin Degludec [Tresiba] 18 units SUBCUT DAILY 03/26/20 [History] Metoprolol Succinate [Toprol Xl] 25 mg PO DAILY 03/26/20 [History] Sertraline [Zoloft] 100 mg PO DAILY 03/26/20 [History] Spironolactone [Aldactone] 100 mg PO DAILY 03/26/20 [History] Tamsulosin [Flomax] 0.4 mg PO DAILY 03/26/20 [History] Zinc Oxide [Perishield] 1 dose TOP BID 03/26/20 [History] Past Medical History HEENT History: Reports: Impaired Vision, Other (See Below) Other HEENT History: Wears glasses Cardiovascular History: Reports: Afib (Early on Xarelto 20 mg daily.), Heart Failure, Hypertension, SOB on Exertion, Other (See Below) Other Cardiovascular History: Atherosclerotic heart disease Respiratory History: Reports: COPD, SOB Genitourinary History: Reports: BPH Musculoskeletal History: Reports: Back Pain, Chronic, Other (See Below) Other Musculoskeletal History: Chronic shoulder pain. Pt fell approximately 1 year ago and has had back and shoulder pain since Endocrine/Metabolic History: Reports: Diabetes, Type II, Hyperthyroidism Hematologic History: Reports: Anemia, Blood Transfusion(s) - Infectious Disease History Infectious Disease History: Reports: Chicken Pox - Past Surgical History HEENT Surgical History: Reports: Cataract Surgery Cardiovascular Surgical History: Reports: None Respiratory Surgical History: Reports: None Male Surgical History: Reports: None Endocrine Surgical History: Reports: None Musculoskeletal Surgical History: Reports: None Social & Family History - Family History Family Medical History: Noncontributory - Tobacco Use Smoking Status *Q: Former Smoker Used Tobacco, but Quit: Yes Month/Year Tobacco Last Used: 2019 - Caffeine Use Caffeine Use: Reports: Coffee Caffeine Use Comment: Frequent coke and coffee - Recreational Drug Use Recreational Drug Use: No - Living Situation & Occupation Living situation: Reports: Occupation: Retired ED ROS ENT - Review of Systems Review Of Systems: See Below Constitutional: Reports: Malaise, Weakness, Fatigue. Denies: Fever, Chills HEENT: Reports: Nosebleed Respiratory: Reports: Shortness of Breath (Primarily from the left side but for a while he was coming out both sides of the nares.), Cough, Other (Chronic nonproductive cough for the most part. Has COPD and is maintained on oxygen at 3 L/min by nasal cannula at all times.). Denies: Wheezing, Pleuritic Chest Pain Cardiovascular: Reports: Blood Pressure Problem, Dyspnea on Exertion (On both lower extremities.), Edema. Denies: Claudication, Lightheadedness, Orthopnea Endocrine: Reports: Fatigue ( Chronically.) GI/Abdominal: Reports: Constipation, Other : Reports: Frequency, Other (Curia x3. Known BPH.) Musculoskeletal: Reports: Neck Pain, Shoulder Pain, Back Pain, Joint Pain (Knees and hips) Skin: Reports: Bruising (Bruises easily as he is on Xarelto.) Neurological: Reports: No Symptoms Psychiatric: Reports: No Symptoms Hematologic/Lymphatic: Reports: No Symptoms Immunologic: Reports: No Symptoms ED EXAM, ENT - Physical Exam Exam: See Below Exam Limited By: No Limitations General Appearance: Alert, WD/WN, Mild Distress, Other (Temperature is 36.3 h eart rate 92 and sinus respiratory rate is 16 with O2 sats 100 on room air BP 08/03/1960.) Eye Exam: Bilateral Eye: Normal Inspection, PERRL (Mild blepharal pallor. No scleral icterus.) Nose: Other (Patient has caked dried blood throughout both the anterior and floor of the left side of his nose. On the right side you can see where there was active bleeding coming from the right anterior nasal septum. This area was cauterized with silver nitrate.) Mouth/Throat: Normal Inspection ( There was no blood in the oropharynx), Other (Is mildly dry but there is no blood clot in the posterior oropharynx) Head: Atraumatic, Normocephalic Neck: Normal Inspection, Limited Range of Motion (Capitis on lateral rotation with decreased flexion extension and lateral rotation bilaterally.). No: Carotid Bruit, Lymphadenopathy (L), Lymphadenopathy (R) Respiratory/Chest: Lungs Clear, Normal Breath Sounds, No Accessory Muscle Use (Decreased air entry the posterior lung bases by 25%.), Decreased Breath Sounds Cardiovascular: No Gallop, No Murmur, No Rub, Irregularly Irregular (Atrial fibrillation with controlled rate) GI/Abdominal: Soft ED ENT PROCEDURES - Epistaxis Procedure Indication: Epistaxis, Controlled Recent anticoagulants/antiplatlets: Yes (Patient is on Xarelto 20 mg daily chronically for atrial fibrillation.) Uncontrolled HTN: No Recent septal/nasal surgery: No Site of bleeding: Right Nare, Anterior Chemical cautery: Silver Nitrate Topical Course - Vital Signs Last Recorded V/S: Last Vital Signs Temp 36.3 C 03/26/20 09:22 Pulse 92 03/26/20 09:22 Resp 16 03/26/20 09:22 BP 121/59 L 03/26/20 09:22 Pulse Ox 100 03/26/20 09:22 - Radiology Interpretation Free Text/Narrative:: 74-year-old male from local shelter presents to the ED with a persistent right-sided nasal hemorrhage since 0230 hrs. this morning. Bleeding has been intermittent. Blood has been coming up both sides of the nares at times. Currently bleeding is under control with a gauze packed into the right side of his nares. There is no blood in the oropharynx. I remove the pack. There is been some bleeding sites from the anterior nasal septum that were cauterized with silver nitrate x3. The blood is dried in the floor and anterior nasal septum on the right side with no obvious active source of bleeding. I will review him in 10 to 15 minutes. - Re-Assessments/Exams Free Text/Narrative Re-Assessment/Exam: 03/26/20 10:49 on recheck x2 no active bleeding has occurred from the right nares at site of cauterization with silver nitrate. Patient denies he will get some pinkish discharge from the nares over the next hour due to chemical i rritation of the mucosa from silver nitrate. Blood will also come from the left nares as it is caked with blood from bleeding earlier. This will come out on its own. Advised that he purchase some AYR gel and use it every night at bedtime into both sides of his nose to prevent the lining of the mucosa from drying out so badly from chronic oxygen use. Departure - Departure Time of Disposition: 10:50 Disposition: Home, Self-Care 01 Condition: Fair Clinical Impression: Epistaxis - Discharge Information *PRESCRIPTION DRUG MONITORING PROGRAM REVIEWED*: Not Applicable *COPY OF PRESCRIPTION DRUG MONITORING REPORT IN PATIENT TAHIR: Not Applicable Instructions: Nosebleed, Adult Referrals: Logan Box MD [Primary Care Provider] - Forms: ED Department Discharge Additional Instructions: Evaluation in the emergency room today in regards to persistent nosebleed from the right side of your nose. At times the bleeding was coming out both sides of your nose. There is caked blood within the floor and nasal septum on the left side which will come out on its own over the next 2 to 3 days. On the right side areas of bleeding were identified coming from the anterior nasal septum and these were cauterized with silver nitrate x3. No further bleeding occurred on watching you for the next half hour. Suggest purchasing AYR gel to be placed in each side of your nose at bedtime to prevent further drying out of the nasal mucosa from chronic oxygen use. Of course return to the ED if further bleeding occurs. Sepsis Event Note (ED) - Evaluation Sepsis Screening Result: No Definite Risk - Focused Exam Vital Signs: Vital Signs Temp Pulse Resp BP Pulse Ox 03/26/20 09:22 36.3 C 92 16 121/59 L 100
== END 2020-03-26 11:11 | disposition home or self-care (01) ==
LOC: JD.ED 08:49
DX: R04.0 Epistaxis (principal); I48.91 Unspecified atrial fibrillation; E05.90 Thyrotoxicosis, unspecified without thyrotoxic crisis or storm; J44.9 Chronic obstructive pulmonary disease, unspecified; E11.9 Type 2 diabetes mellitus without complications; I11.0 Hypertensive heart disease with heart failure; I50.9 Heart failure, unspecified; Z88.6 Allergy status to analgesic agent; Z88.8 Allergy status to other drugs, medicaments and biological substances; Z88.5 Allergy status to narcotic agent; Z79.899 Other long term (current) drug therapy; Z79.01 Long term (current) use of anticoagulants; Z87.891 Personal history of nicotine dependence; Z79.4 Long term (current) use of insulin
CPT/HCPCS: 30901; 99282; 99283-25

== ENCOUNTER 2021-11-25 16:09 | Emergency (ER) | payer MEDICARE, MEDICAID ==
[2021-11-25] MEDS ORDERED: hydrOXYzine HCl 25 MG Tab PO ONE (17:23)
[2021-11-25] MEDS ORDERED: Cephalexin 500 MG Cap PO ONE (17:24)
== END 2021-11-25 19:35 ==
LOC: JD.ED 16:09
DX: L03.119 Cellulitis of unspecified part of limb (principal); I48.91 Unspecified atrial fibrillation; I11.0 Hypertensive heart disease with heart failure; I50.9 Heart failure, unspecified; J44.9 Chronic obstructive pulmonary disease, unspecified; N40.0 Benign prostatic hyperplasia without lower urinary tract symptoms; E11.9 Type 2 diabetes mellitus without complications; Z88.8 Allergy status to other drugs, medicaments and biological substances; Z88.5 Allergy status to narcotic agent; Z79.899 Other long term (current) drug therapy; Z79.4 Long term (current) use of insulin; Z87.891 Personal history of nicotine dependence
CPT/HCPCS: 36415; 80053; 99283; A9270

== ENCOUNTER 2024-03-18 13:47 | Inpatient (IN) | payer MEDICARE, MEDICAID ==
[2024-03-18] MEDS: Lactated Ringers 1,000 ML IV SCH (14:58)
[2024-03-18] MEDS: Albuterol/Ipratropium 3.0-0.5 MG/3 ML Neb Soln NEB ONE (15:20)
[2024-03-18 15:55] LABS: LACTIC ACID 0.9 mmol/L (0.4-2.0)
[2024-03-18] MEDS ORDERED: Bisacodyl 5 MG Tab PO PRN (19:17)
[2024-03-18] MEDS ORDERED: 50% Dextrose in Water 50 ML Syringe IVPUSH PRN (19:25)
[2024-03-18] MEDS: Melatonin 3 MG Tab PO SCH (20:34)
[2024-03-18] MEDS: Nicotine 7 MG/24 Hr Patch TRDERM SCH (21:49)
[2024-03-18] MEDS: Sodium Chloride 0.9% 1,000 ML IV SCH (21:51)
[2024-03-19 04:36] LABS: BASOPHILS ABSOLUTE AUTO 0.1 K/mm3 (0.0-0.2); BASOPHILS PERCENT AUTO 0.7 % (0.0-1.0); EOSINOPHILS ABSOLUTE AUTO 0.4 K/mm3 (0.0-0.4); EOSINOPHILS PERCENT AUTO 5.7 % (0.0-6.0); HEMATOCRIT 33.6 % (42.0-52.0); HEMOGLOBIN 10.5 gm/dl (14.0-18.0); IMMATURE GRAN ABSOLUTE AUTO 0.03 K/mm3 (0.00-0.05); IMMATURE GRAN PERCENT AUTO 0.4 % (0.0-0.4); LYMPHOCYTES ABSOLUTE AUTO 1.7 K/mm3 (1.0-4.8); LYMPHOCYTES PERCENT AUTO 24.1 % (24.0-44.0); MEAN CORPUSCULAR HEMOGLOBIN 31.1 pg (28.0-32.0); MEAN CORPUSCULAR HGB CONC 31.3 g/dl (32.0-36.0); MEAN CORPUSCULAR VOLUME 99.4 fl (83.0-99.0); MEAN PLATELET VOLUME 11.1 fl (9.4-12.4); MONOCYTES ABSOLUTE AUTO 0.7 K/mm3 (0.0-0.8); MONOCYTES PERCENT AUTO 9.8 % (0.0-8.0); NEUTROPHILS ABSOLUTE AUTO 4.1 K/mm3 (1.8-7.7); NEUTROPHILS PERCENT AUTO 59.3 % (41.0-71.0); PLATELET COUNT,PLT 136 K/mm3 (150-400); RED BLOOD CELL COUNT 3.38 M/mm3 (4.52-5.90); WHITE BLOOD CELL COUNT,WBC 6.86 K/mm3 (3.9-11.3)
[2024-03-19 05:00] LABS: A/G RATIO 0.9 (1-2); ALBUMIN 3.3 g/dl (3.4-5.0); BILIRUBIN TOTAL 0.4 mg/dL (0.2-1.0); BUN/CREATININE RATIO 58.9 (14-18); CALCIUM 8.7 mg/dL (8.5-10.1); CREATININE 1.8 mg/dL (0.7-1.3); EST CRCL DRUG DOSING (CG) 33.8 mL/min; PROTEIN TOTAL,TP 6.9 g/dl (6.4-8.2)
[2024-03-19] MEDS: Levothyroxine 50 MCG Tab PO SCH (05:26)
[2024-03-19] MEDS: Acetaminophen 325 MG Tab PO PRN (05:26)
[2024-03-19] MEDS: Insulin Lispro 100 Unit/ML 3 ML KwikPen SUBCUT SCH (06:54)
[2024-03-19] MEDS: Gabapentin 300 MG Cap PO SCH (08:50)
[2024-03-19] MEDS: Rivaroxaban 10 MG Tab PO SCH (08:50)
[2024-03-19] MEDS: Sertraline 50 MG Tab PO SCH (08:50)
[2024-03-19] MEDS: Metoprolol Succinate 25 MG Tab.ER PO SCH (08:50)
== END 2024-03-19 14:40 | disposition home or self-care (01) | DRG 683 ==
LOC: JD.ED 13:47 → JD.MS 17:39
PROVIDERS: ADMIT Family Medicine; ATTEND Family Medicine
DX: N17.9 Acute kidney failure, unspecified (principal); A09 Infectious gastroenteritis and colitis, unspecified; I13.0 Hypertensive heart and chronic kidney disease with heart failure and stage 1 through stage 4 chronic kidney disease, or unspecified chronic kidney disease; I50.9 Heart failure, unspecified; F02.83 Dementia in other diseases classified elsewhere, unspecified severity, with mood disturbance; F02.84 Dementia in other diseases classified elsewhere, unspecified severity, with anxiety; J96.11 Chronic respiratory failure with hypoxia; I50.32 Chronic diastolic (congestive) heart failure; N18.9 Chronic kidney disease, unspecified; I48.20 Chronic atrial fibrillation, unspecified; N18.32 Chronic kidney disease, stage 3b; E03.9 Hypothyroidism, unspecified; E11.22 Type 2 diabetes mellitus with diabetic chronic kidney disease; G30.9 Alzheimer's disease, unspecified; J44.9 Chronic obstructive pulmonary disease, unspecified; N40.0 Benign prostatic hyperplasia without lower urinary tract symptoms; D63.1 Anemia in chronic kidney disease; G89.29 Other chronic pain; I27.20 Pulmonary hypertension, unspecified; Z88.5 Allergy status to narcotic agent; Z98.49 Cataract extraction status, unspecified eye; Z79.01 Long term (current) use of anticoagulants; E66.9 Obesity, unspecified; E05.90 Thyrotoxicosis, unspecified without thyrotoxic crisis or storm; Z79.890 Hormone replacement therapy; Z87.891 Personal history of nicotine dependence; Z79.899 Other long term (current) drug therapy; Z79.891 Long term (current) use of opiate analgesic; Z79.4 Long term (current) use of insulin; Z88.8 Allergy status to other drugs, medicaments and biological substances; Z88.1 Allergy status to other antibiotic agents; Z68.35 Body mass index [BMI] 35.0-35.9, adult
CPT/HCPCS: 36415; 71045; 83605; 83735; 83880; 84100; 94640; 96360; 96361; 99285; J7120; 80053; 82947; 85025; 87045; 87046; 87641; 87899; 94760; 99222; 99238; A9270-GY; J7030; J7620-GY

== ENCOUNTER 2024-05-06 21:57 | Inpatient (IN) | payer MEDICARE, MEDICAID ==
[2024-05-06] MEDS ORDERED: Sodium Chloride 0.9% 10 ML Syringe FLUSH PRN (22:58)
[2024-05-06 23:04] LABS: BASOPHILS PERCENT AUTO 0.3 % (0.0-1.0); EOSINOPHILS PERCENT AUTO 0.1 % (0.0-6.0); HEMATOCRIT 33.9 % (42.0-52.0); IMMATURE GRAN ABSOLUTE AUTO 0.03 K/mm3 (0.00-0.05); IMMATURE GRAN PERCENT AUTO 0.4 % (0.0-0.4); LYMPHOCYTES ABSOLUTE AUTO 0.8 K/mm3 (1.0-4.8); MEAN CORPUSCULAR HEMOGLOBIN 31.6 pg (28.0-32.0); MEAN CORPUSCULAR HGB CONC 32.4 g/dl (32.0-36.0); MEAN CORPUSCULAR VOLUME 97.4 fl (83.0-99.0); MEAN PLATELET VOLUME 11.2 fl (9.4-12.4); MONOCYTES ABSOLUTE AUTO 0.8 K/mm3 (0.0-0.8); MONOCYTES PERCENT AUTO 10.5 % (0.0-8.0); NEUTROPHILS ABSOLUTE AUTO 5.8 K/mm3 (1.8-7.7); NEUTROPHILS PERCENT AUTO 77.7 % (41.0-71.0); PLATELET COUNT,PLT 179 K/mm3 (150-400); RED BLOOD CELL COUNT 3.48 M/mm3 (4.52-5.90); WHITE BLOOD CELL COUNT,WBC 7.52 K/mm3 (3.9-11.3)
[2024-05-06 23:20] LABS: LACTIC ACID 0.8 mmol/L (0.4-2.0)
[2024-05-06 23:27] LABS: ALBUMIN 4.1 g/dl (3.4-5.0); ANION GAP 15.2 (5-15); BILIRUBIN TOTAL 0.5 mg/dL (0.2-1.0); BUN/CREATININE RATIO 48.1 (14-18); CALCIUM 9.5 mg/dL (8.5-10.1); CREATININE 2.7 mg/dL (0.7-1.3); EST CRCL DRUG DOSING (CG) 23.24 mL/min; MAGNESIUM 2.4 mg/dL (1.8-2.4); POTASSIUM,K 4.2 mEq/L (3.5-5.1); PROTEIN TOTAL,TP 8.4 g/dl (6.4-8.2); TSH 3.639 uIU/mL (0.358-3.74)
[2024-05-06 23:57] LABS: INFLUENZA A NAA NEGATIVE (NEGATIVE); RESPIRATORY SYNCYTIAL VIR NAA NEGATIVE (NEGATIVE)
[2024-05-07 00:07] LABS: CORONAVIRUS COVID-19 NAA POSITIVE (NEGATIVE)
[2024-05-07] MEDS: Sodium Chloride 0.9% 500 ML IV ONE ×2 (00:13→11:02)
[2024-05-07 02:49] LABS: APPEARANCE,URINE CLEAR (Clear); BILIRUBIN,URINE NEGATIVE (Negative); COLOR,URINE YELLOW (Yellow); GLUCOSE,URINE NEGATIVE (Negative); KETONES,URINE NEGATIVE (Negative); LEUKOCYTE ESTERASE,URINE NEGATIVE (Negative); NITRITE,URINE NEGATIVE (Negative); OCCULT BLOOD,URINE NEGATIVE (Negative); PROTEIN,URINE TRACE (Negative); UROBILINOGEN,URINE 0.2 (0.2-1.0)
[2024-05-07 03:08] LABS: BACTERIA,URINE RARE /hpf (FEW); EPITHELIAL CELLS,URINE NOT SEEN /hpf (0-5); RBC,URINE NOT SEEN /hpf (0-5); WBC,URINE 0-5 /hpf (0-5)
[2024-05-07 03:09] LABS: HYALINE CASTS,URINE 0-5 /lpf (0-5); MUCUS,URINE RARE /hpf (FEW)
[2024-05-07] MEDS ORDERED: Aloe Vera/Sodium Chloride Gel 14.1 GM Tube NASBOTH PRN (09:44)
[2024-05-07] MEDS ORDERED: Nystatin Topical Powder 15 GM Bottle TOP PRN (09:51)
[2024-05-07] MEDS ORDERED: 50% Dextrose in Water 50 ML Syringe IVPUSH PRN (09:59)
[2024-05-07] MEDS ORDERED: Ondansetron 4 MG/2 ML SDV IV PRN (10:07)
[2024-05-07] MEDS ORDERED: Morphine 2 MG/ML SYRINGE IVPUSH PRN (10:07)
[2024-05-07] MEDS ORDERED: Naloxone 0.4 MG/ML SDV IVPUSH PRN (10:07)
[2024-05-07] MEDS ORDERED: Rivaroxaban 10 MG Tab PO ONE (10:38)
[2024-05-07 11:00] LABS: A/G RATIO 0.9 (1-2); ALBUMIN 3.6 g/dl (3.4-5.0); ANION GAP 13.7 (5-15); BILIRUBIN TOTAL 0.5 mg/dL (0.2-1.0); BUN/CREATININE RATIO 58.5 (14-18); CALCIUM 9.5 mg/dL (8.5-10.1); EST CRCL DRUG DOSING (CG) 31.38 mL/min; MAGNESIUM 2.4 mg/dL (1.8-2.4); PHOSPHORUS 4.1 mg/dL (2.6-4.7); POTASSIUM,K 3.7 mEq/L (3.5-5.1); PROTEIN TOTAL,TP 7.8 g/dl (6.4-8.2); TSH 1.862 uIU/mL (0.358-3.74)
[2024-05-07] MEDS: Nirmatrelvir/Ritonavir 150 MG/100 MG Dose Pack (Renal Dose) PO SCH (11:02)
[2024-05-07] MEDS: Insulin Lispro 100 Unit/ML 3 ML KwikPen SUBCUT SCH (11:03)
[2024-05-07] MEDS: Gabapentin 300 MG Cap PO SCH (11:03)
[2024-05-07] MEDS: Rivaroxaban 15 MG Tab PO ONE (11:03)
[2024-05-07] MEDS: Brimonidine 0.2% Ophth Soln 5 ML Bottle EYEBOTH SCH (15:03)
[2024-05-07] MEDS ORDERED: diphenhydrAMINE/Zinc Acetate 2% Crm 28.4 GM Tube TOP PRN (17:36)
[2024-05-07] MEDS: Melatonin 3 MG Tab PO SCH (21:15)
[2024-05-07] MEDS: lamoTRIgine 100 MG Tab PO SCH (21:15)
[2024-05-07] MEDS: guaiFENesin 600 MG Tab.ER PO SCH (21:15)
[2024-05-08] MEDS: traZODone 50 MG Tab PO PRN (00:30)
[2024-05-08 05:35] LABS: BASOPHILS PERCENT AUTO 0.2 % (0.0-1.0); EOSINOPHILS ABSOLUTE AUTO 0.1 K/mm3 (0.0-0.4); EOSINOPHILS PERCENT AUTO 0.9 % (0.0-6.0); HEMATOCRIT 30.2 % (42.0-52.0); HEMOGLOBIN 9.9 gm/dl (14.0-18.0); IMMATURE GRAN ABSOLUTE AUTO 0.02 K/mm3 (0.00-0.05); IMMATURE GRAN PERCENT AUTO 0.3 % (0.0-0.4); LYMPHOCYTES ABSOLUTE AUTO 1.5 K/mm3 (1.0-4.8); LYMPHOCYTES PERCENT AUTO 23.9 % (24.0-44.0); MEAN CORPUSCULAR HEMOGLOBIN 31.4 pg (28.0-32.0); MEAN CORPUSCULAR HGB CONC 32.8 g/dl (32.0-36.0); MEAN CORPUSCULAR VOLUME 95.9 fl (83.0-99.0); MEAN PLATELET VOLUME 10.7 fl (9.4-12.4); MONOCYTES ABSOLUTE AUTO 0.9 K/mm3 (0.0-0.8); MONOCYTES PERCENT AUTO 14.8 % (0.0-8.0); NEUTROPHILS ABSOLUTE AUTO 3.8 K/mm3 (1.8-7.7); NEUTROPHILS PERCENT AUTO 59.9 % (41.0-71.0); PLATELET COUNT,PLT 152 K/mm3 (150-400); RED BLOOD CELL COUNT 3.15 M/mm3 (4.52-5.90); WHITE BLOOD CELL COUNT,WBC 6.36 K/mm3 (3.9-11.3)
[2024-05-08] MEDS: Levothyroxine 50 MCG Tab PO SCH (05:55)
[2024-05-08 06:03] LABS: A/G RATIO 0.8 (1-2); ALBUMIN 3.2 g/dl (3.4-5.0); ANION GAP 9.6 (5-15); BILIRUBIN TOTAL 0.5 mg/dL (0.2-1.0); BUN/CREATININE RATIO 54.4 (14-18); C-REACTIVE PROTEIN 4.21 mg/dL (<0.30); CALCIUM 9.1 mg/dL (8.5-10.1); CREATININE 1.8 mg/dL (0.7-1.3); EST CRCL DRUG DOSING (CG) 34.86 mL/min; MAGNESIUM 2.1 mg/dL (1.8-2.4); PHOSPHORUS 3.9 mg/dL (2.6-4.7); POTASSIUM,K 3.6 mEq/L (3.5-5.1); PROTEIN TOTAL,TP 7.1 g/dl (6.4-8.2)
[2024-05-08 07:09] LABS: HEMOGLOBIN A1C 6.2 %
[2024-05-08] MEDS: Rivaroxaban 15 MG Tab PO SCH (09:45)
[2024-05-08] MEDS: Potassium Chloride 20 MEQ Tab.ER PO ONE (13:26)
[2024-05-09 05:56] LABS: A/G RATIO 0.8 (1-2); ALBUMIN 3.2 g/dl (3.4-5.0); ANION GAP 10.5 (5-15); BILIRUBIN TOTAL 0.6 mg/dL (0.2-1.0); BUN/CREATININE RATIO 56.3 (14-18); CALCIUM 9.2 mg/dL (8.5-10.1); CREATININE 1.6 mg/dL (0.7-1.3); EST CRCL DRUG DOSING (CG) 39.22 mL/min; POTASSIUM,K 3.5 mEq/L (3.5-5.1); PROTEIN TOTAL,TP 7.3 g/dl (6.4-8.2)
[2024-05-09] MEDS: Potassium Chloride 20 MEQ Tab.ER PO ONE (10:04)
[2024-05-10] MEDS: Acetaminophen 325 MG Tab PO PRN (03:19)
[2024-05-10 06:13] LABS: A/G RATIO 0.7 (1-2); ALBUMIN 3.2 g/dl (3.4-5.0); ANION GAP 13.6 (5-15); BILIRUBIN TOTAL 0.8 mg/dL (0.2-1.0); BUN/CREATININE RATIO 50.7 (14-18); CALCIUM 9.2 mg/dL (8.5-10.1); CREATININE 1.5 mg/dL (0.7-1.3); EST CRCL DRUG DOSING (CG) 41.83 mL/min; POTASSIUM,K 4.6 mEq/L (3.5-5.1); PROTEIN TOTAL,TP 7.5 g/dl (6.4-8.2)
[2024-05-12] MEDS: Acetaminophen/HYDROcodone 325-5 MG Tab PO PRN (04:24)
[2024-05-12] MEDS ORDERED: Calcium Carbonate 500 MG Tab.Chew PO PRN (13:48)
[2024-05-14] MEDS: Albuterol 6.7 GM Inhaler INH PRN (23:49)
[2024-05-15] MEDS: Metoprolol Succinate 25 MG Tab.ER PO SCH (09:41)
[2024-05-15] MEDS: Bumetanide 1 MG Tab PO SCH (09:43)
[2024-05-15] MEDS: hydrOXYzine HCl 50 MG Tab PO PRN (10:50)
[2024-05-16] MEDS: Sennosides/Docusate Sodium 50-8.6 MG Tab PO PRN (06:45)
[2024-05-16] MEDS: Polyethylene Glycol 3350 Powder 17 GM Packet PO SCH (14:40)
== END 2024-05-17 13:40 | DRG 682 ==
LOC: JD.ED 21:57 → JD.MS 05-07 06:42
PROVIDERS: ADMIT Student in an Organized Health Care Education/Training Program; ATTEND Internal Medicine
PROC: XW033F5 Introduction of Other New Technology Therapeutic Substance into Peripheral Vein, Percutaneous Approach, New Technology Group 5 (ICD-10-PCS; principal; 2024-05-07)
DX: N17.9 Acute kidney failure, unspecified (principal); U07.1 COVID-19; E87.1 Hypo-osmolality and hyponatremia; L89.159 Pressure ulcer of sacral region, unspecified stage; R79.89 Other specified abnormal findings of blood chemistry; R26.89 Other abnormalities of gait and mobility; F02.83 Dementia in other diseases classified elsewhere, unspecified severity, with mood disturbance; I13.0 Hypertensive heart and chronic kidney disease with heart failure and stage 1 through stage 4 chronic kidney disease, or unspecified chronic kidney disease; I11.0 Hypertensive heart disease with heart failure; F02.84 Dementia in other diseases classified elsewhere, unspecified severity, with anxiety; E11.9 Type 2 diabetes mellitus without complications; J96.11 Chronic respiratory failure with hypoxia; I48.20 Chronic atrial fibrillation, unspecified; Z79.890 Hormone replacement therapy; Z66 Do not resuscitate; J44.9 Chronic obstructive pulmonary disease, unspecified; I50.9 Heart failure, unspecified; H54.7 Unspecified visual loss; N40.0 Benign prostatic hyperplasia without lower urinary tract symptoms; M25.519 Pain in unspecified shoulder; G30.9 Alzheimer's disease, unspecified; M25.551 Pain in right hip; E86.0 Dehydration; L89.152 Pressure ulcer of sacral region, stage 2; G93.89 Other specified disorders of brain; R74.01 Elevation of levels of liver transaminase levels; E87.6 Hypokalemia; E11.69 Type 2 diabetes mellitus with other specified complication; E11.22 Type 2 diabetes mellitus with diabetic chronic kidney disease; I71.43 Infrarenal abdominal aortic aneurysm, without rupture; N18.31 Chronic kidney disease, stage 3a; Z88.8 Allergy status to other drugs, medicaments and biological substances; Z99.81 Dependence on supplemental oxygen; Z79.01 Long term (current) use of anticoagulants; Z79.899 Other long term (current) drug therapy; Z79.51 Long term (current) use of inhaled steroids; Z79.4 Long term (current) use of insulin; Z98.49 Cataract extraction status, unspecified eye
CPT/HCPCS: 0241U; 36415; 70450; 71045; 72125; 72192; 73552; 73590; 80053; 81001; 82550; 82947; 83036; 83605; 83735; 83880; 84100; 84443; 84484; 85025; 86140; 87040; 93005; 94640; 94760; 94761; 96360; 96361; 97110; 97116; 97161; 97530; 99285; 93010; 99223; 99231; 99232; 99233; 99239; 99283; A9270-GY; J1815; J7030; J7040

== ENCOUNTER 2024-09-01 12:01 | Inpatient (IN) | payer MEDICARE, MEDICAID ==
[2024-09-01] MEDS ORDERED: Sodium Chloride 0.9% 10 ML Syringe FLUSH PRN (13:14)
[2024-09-01 13:46] LABS: HEMATOCRIT 35.4 % (42.0-52.0); MEAN CORPUSCULAR HEMOGLOBIN 29.2 pg (28.0-32.0); MEAN CORPUSCULAR HGB CONC 31.1 g/dl (32.0-36.0); MEAN CORPUSCULAR VOLUME 93.9 fl (83.0-99.0); MEAN PLATELET VOLUME 10.9 fl (9.4-12.4); RED BLOOD CELL COUNT 3.77 M/mm3 (4.52-5.90); WHITE BLOOD CELL COUNT,WBC 17.32 K/mm3 (3.9-11.3)
[2024-09-01 14:02] LABS: INR 1.35
[2024-09-01 14:08] LABS: PLATELET COUNT,PLT 168 K/mm3 (150-400)
[2024-09-01] MEDS: Acetaminophen 325 MG Tab PO ONE (14:16)
[2024-09-01 14:18] LABS: LACTIC ACID 1.1 mmol/L (0.4-2.0)
[2024-09-01 14:23] LABS: A/G RATIO 0.5 (1-2); ALBUMIN 2.9 g/dl (3.4-5.0); ANION GAP 9.7 (5-15); BILIRUBIN TOTAL 0.6 mg/dL (0.2-1.0); BUN/CREATININE RATIO 28.2 (14-18); C-REACTIVE PROTEIN 15.51 mg/dL (<0.30); CALCIUM 8.9 mg/dL (8.5-10.1); CREATININE 1.7 mg/dL (0.7-1.3); EST CRCL DRUG DOSING (CG) 35.78 mL/min; POTASSIUM,K 3.7 mEq/L (3.5-5.1); PROTEIN TOTAL,TP 8.3 g/dl (6.4-8.2)
[2024-09-01] MEDS: cefTRIAXone 1 GM Vial IVPUSH ONE (14:34)
[2024-09-01] MEDS: VANCOmycin 2 GM/400 ML 2 GM in Premix Bag 1 BAG IV ONE (14:34)
[2024-09-01 14:41] LABS: BAND PERCENT MAN 0 % (0-10); BASOPHILS PERCENT MAN 1 (0.2-1.2); EOSINOPHILS PERCENT MAN 0 % (0.8-7.0); LYMPHOCYTES % ATYPICAL MANUAL 0 %; LYMPHOCYTES PERCENT MAN 12 % (20-40); MONOCYTES PERCENT MAN 6 % (2-10)
[2024-09-01 14:43] LABS: PLATELET COUNT ESTIMATE ADEQUATE
[2024-09-01 14:44] LABS: ANISOCYTOSIS 1+ SLIGHT; OVALOCYTES 1+ SLIGHT; POIKILOCYTOSIS 1+ SLIGHT; POLYCHROMASIA FEW
[2024-09-01] MEDS ORDERED: Ondansetron 4 MG/2 ML SDV IV PRN (17:46)
[2024-09-01] MEDS ORDERED: Albuterol/Ipratropium 3.0-0.5 MG/3 ML Neb Soln NEB PRN (17:51)
[2024-09-01] MEDS ORDERED: traZODone 50 MG Tab PO PRN (17:52)
[2024-09-01] MEDS: Cefepime 2 GM Vial IVPUSH SCH (18:15)
[2024-09-01] MEDS: Furosemide 40 MG/4 ML VIAL IVPUSH ONE (18:15)
[2024-09-01] MEDS: Acetaminophen 325 MG Tab PO PRN (18:15)
[2024-09-02] MEDS: Melatonin 3 MG Tab PO PRN (00:31)
[2024-09-02 04:35] LABS: BASOPHILS PERCENT AUTO 0.1 % (0.0-1.0); EOSINOPHILS PERCENT AUTO 0.3 % (0.0-6.0); HEMOGLOBIN 9.8 gm/dl (14.0-18.0); IMMATURE GRAN ABSOLUTE AUTO 0.14 K/mm3 (0.00-0.05); LYMPHOCYTES ABSOLUTE AUTO 1.1 K/mm3 (1.0-4.8); LYMPHOCYTES PERCENT AUTO 7.5 % (24.0-44.0); MEAN CORPUSCULAR HEMOGLOBIN 28.2 pg (28.0-32.0); MEAN CORPUSCULAR HGB CONC 30.6 g/dl (32.0-36.0); MEAN CORPUSCULAR VOLUME 92.2 fl (83.0-99.0); MEAN PLATELET VOLUME 10.7 fl (9.4-12.4); MONOCYTES ABSOLUTE AUTO 1.4 K/mm3 (0.0-0.8); MONOCYTES PERCENT AUTO 9.5 % (0.0-8.0); NEUTROPHILS ABSOLUTE AUTO 11.7 K/mm3 (1.8-7.7); NEUTROPHILS PERCENT AUTO 81.6 % (41.0-71.0); PLATELET COUNT,PLT 138 K/mm3 (150-400); RED BLOOD CELL COUNT 3.47 M/mm3 (4.52-5.90); WHITE BLOOD CELL COUNT,WBC 14.36 K/mm3 (3.9-11.3)
[2024-09-02 05:11] LABS: A/G RATIO 0.5 (1-2); ALBUMIN 2.5 g/dl (3.4-5.0); ANION GAP 11.1 (5-15); BILIRUBIN TOTAL 0.6 mg/dL (0.2-1.0); BUN/CREATININE RATIO 29.4 (14-18); C-REACTIVE PROTEIN 20.26 mg/dL (<0.30); CALCIUM 8.7 mg/dL (8.5-10.1); CREATININE 1.6 mg/dL (0.7-1.3); EST CRCL DRUG DOSING (CG) 38.02 mL/min; PHOSPHORUS 3.4 mg/dL (2.6-4.7); POTASSIUM,K 3.1 mEq/L (3.5-5.1); PROTEIN TOTAL,TP 7.2 g/dl (6.4-8.2); TSH 2.412 uIU/mL (0.358-3.74)
[2024-09-02] MEDS: Levothyroxine 50 MCG Tab PO SCH (06:23)
[2024-09-02] MEDS: Rivaroxaban 15 MG Tab PO SCH (08:29)
[2024-09-02] MEDS ORDERED: Carbamide Peroxide 6.5% Otic Soln 15 ML Bottle EARBOTH PRN (08:48)
[2024-09-02] MEDS ORDERED: diphenhydrAMINE/Zinc Acetate 2% Crm 28.4 GM Tube TOP PRN (08:55)
[2024-09-02] MEDS ORDERED: Menthol/Zinc Oxide Ointment 3.5 GM Tube TOP PRN (09:00)
[2024-09-02 09:16] LABS: BASE EXCESS ARTERIAL 9.4 (-2-2.0); BICARBONATE,ARTERIAL 35.2 meq/L (22.0-26.0); O2 SATURATION ARTERIAL 97.1 % (96.0-97.0)
[2024-09-02] MEDS ORDERED: Albuterol 6.7 GM Inhaler INH PRN (09:30)
[2024-09-02] MEDS: Empagliflozin 25 MG Tab PO SCH (09:41)
[2024-09-02] MEDS: Sennosides/Docusate Sodium 50-8.6 MG Tab PO PRN (09:41)
[2024-09-02] MEDS: Sertraline 50 MG Tab PO SCH (09:41)
[2024-09-02] MEDS: Potassium Chloride 20 MEQ Tab.ER PO ONE (09:42)
[2024-09-02] MEDS: Furosemide 40 MG/4 ML VIAL IVPUSH ONE (09:42)
[2024-09-02] MEDS: Aspirin 81 MG Tab.EC PO SCH (09:42)
[2024-09-02] MEDS: Brimonidine 0.2% Ophth Soln 5 ML Bottle EYEBOTH SCH (09:42)
[2024-09-02] MEDS: Acetaminophen/HYDROcodone 325-5 MG Tab PO PRN (09:42)
[2024-09-02] MEDS: VANCOmycin 1 GM in Sodium Chloride 0.9% 250 ML IV SCH (14:36)
[2024-09-02 15:56] LABS: APPEARANCE,URINE CLEAR (Clear); BILIRUBIN,URINE NEGATIVE (Negative); COLOR,URINE YELLOW (Yellow); GLUCOSE,URINE 2+ (Negative); KETONES,URINE NEGATIVE (Negative); LEUKOCYTE ESTERASE,URINE NEGATIVE (Negative); NITRITE,URINE NEGATIVE (Negative); OCCULT BLOOD,URINE TRACE-INTACT (Negative); PROTEIN,URINE NEGATIVE (Negative); UROBILINOGEN,URINE 0.2 (0.2-1.0)
[2024-09-02 16:11] LABS: BACTERIA,URINE FEW /hpf (FEW); EPITHELIAL CELLS,URINE 0-5 /hpf (0-5); MUCUS,URINE NOT SEEN /hpf (FEW); RBC,URINE 0-5 /hpf (0-5); WBC,URINE NOT SEEN /hpf (0-5)
[2024-09-02] MEDS: ALPRAZolam 0.25 MG Tab PO PRN (21:18)
[2024-09-02] MEDS: Gabapentin 300 MG Cap PO SCH (21:18)
[2024-09-03 04:27] LABS: BASOPHILS PERCENT AUTO 0.2 % (0.0-1.0); EOSINOPHILS ABSOLUTE AUTO 0.1 K/mm3 (0.0-0.4); EOSINOPHILS PERCENT AUTO 1.1 % (0.0-6.0); HEMATOCRIT 33.1 % (42.0-52.0); HEMOGLOBIN 10.1 gm/dl (14.0-18.0); IMMATURE GRAN ABSOLUTE AUTO 0.08 K/mm3 (0.00-0.05); IMMATURE GRAN PERCENT AUTO 0.6 % (0.0-0.4); LYMPHOCYTES PERCENT AUTO 7.8 % (24.0-44.0); MEAN CORPUSCULAR HEMOGLOBIN 28.4 pg (28.0-32.0); MEAN CORPUSCULAR HGB CONC 30.5 g/dl (32.0-36.0); MEAN PLATELET VOLUME 10.5 fl (9.4-12.4); MONOCYTES ABSOLUTE AUTO 1.2 K/mm3 (0.0-0.8); MONOCYTES PERCENT AUTO 9.4 % (0.0-8.0); NEUTROPHILS ABSOLUTE AUTO 10.3 K/mm3 (1.8-7.7); NEUTROPHILS PERCENT AUTO 80.9 % (41.0-71.0); NRBC ABSOLUTE 0.02 (0.00-0.02); NRBC PERCENT 0.2 % (0.0-0.2); PLATELET COUNT,PLT 154 K/mm3 (150-400); RED BLOOD CELL COUNT 3.56 M/mm3 (4.52-5.90); WHITE BLOOD CELL COUNT,WBC 12.74 K/mm3 (3.9-11.3)
[2024-09-03 04:57] LABS: ANION GAP 10.6 (5-15); BLOOD UREA NITROGEN,BUN 48 mg/dL (7-18); CALCIUM 8.9 mg/dL (8.5-10.1); CARBON DIOXIDE,CO2 32 mEq/L (21-32); CHLORIDE,CL 97 mEq/L (98-107); CREATININE 1.5 mg/dL (0.7-1.3); EST CRCL DRUG DOSING (CG) 40.56 mL/min; ESTIMATED GFR 47 mL/min (>60); GLUCOSE RANDOM 118 mg/dL (70-99); POTASSIUM,K 3.6 mEq/L (3.5-5.1); SODIUM,NA 136 mEq/L (136-145)
[2024-09-03 05:23] LABS: C-REACTIVE PROTEIN > 25.00 mg/dL (<0.30)
[2024-09-03] MEDS: Potassium Chloride 20 MEQ Tab.ER PO ONE (14:15)
[2024-09-03] MEDS: Bumetanide 1 MG Tab PO SCH (14:15)
[2024-09-04 05:50] LABS: BASOPHILS PERCENT AUTO 0.3 % (0.0-1.0); EOSINOPHILS ABSOLUTE AUTO 0.2 K/mm3 (0.0-0.4); EOSINOPHILS PERCENT AUTO 2.5 % (0.0-6.0); IMMATURE GRAN ABSOLUTE AUTO 0.07 K/mm3 (0.00-0.05); IMMATURE GRAN PERCENT AUTO 0.8 % (0.0-0.4); LYMPHOCYTES ABSOLUTE AUTO 1.2 K/mm3 (1.0-4.8); LYMPHOCYTES PERCENT AUTO 13.5 % (24.0-44.0); MEAN CORPUSCULAR HEMOGLOBIN 27.9 pg (28.0-32.0); MEAN CORPUSCULAR HGB CONC 30.3 g/dl (32.0-36.0); MEAN CORPUSCULAR VOLUME 92.2 fl (83.0-99.0); MEAN PLATELET VOLUME 10.2 fl (9.4-12.4); MONOCYTES ABSOLUTE AUTO 0.8 K/mm3 (0.0-0.8); MONOCYTES PERCENT AUTO 8.8 % (0.0-8.0); NEUTROPHILS ABSOLUTE AUTO 6.7 K/mm3 (1.8-7.7); NEUTROPHILS PERCENT AUTO 74.1 % (41.0-71.0); PLATELET COUNT,PLT 162 K/mm3 (150-400); RED BLOOD CELL COUNT 3.58 M/mm3 (4.52-5.90); WHITE BLOOD CELL COUNT,WBC 9.07 K/mm3 (3.9-11.3)
[2024-09-04 06:10] LABS: ANION GAP 8.5 (5-15); BUN/CREATININE RATIO 29.3 (14-18); C-REACTIVE PROTEIN 17.83 mg/dL (<0.30); CALCIUM 9.5 mg/dL (8.5-10.1); CREATININE 1.4 mg/dL (0.7-1.3); EST CRCL DRUG DOSING (CG) 43.45 mL/min; PHOSPHORUS 2.6 mg/dL (2.6-4.7); POTASSIUM,K 3.5 mEq/L (3.5-5.1)
[2024-09-05 05:39] LABS: BASOPHILS ABSOLUTE AUTO 0.1 K/mm3 (0.0-0.2); BASOPHILS PERCENT AUTO 0.6 % (0.0-1.0); EOSINOPHILS ABSOLUTE AUTO 0.3 K/mm3 (0.0-0.4); EOSINOPHILS PERCENT AUTO 3.3 % (0.0-6.0); HEMATOCRIT 33.2 % (42.0-52.0); HEMOGLOBIN 10.4 gm/dl (14.0-18.0); IMMATURE GRAN ABSOLUTE AUTO 0.14 K/mm3 (0.00-0.05); IMMATURE GRAN PERCENT AUTO 1.6 % (0.0-0.4); LYMPHOCYTES ABSOLUTE AUTO 1.4 K/mm3 (1.0-4.8); LYMPHOCYTES PERCENT AUTO 16.3 % (24.0-44.0); MEAN CORPUSCULAR HEMOGLOBIN 28.7 pg (28.0-32.0); MEAN CORPUSCULAR HGB CONC 31.3 g/dl (32.0-36.0); MEAN CORPUSCULAR VOLUME 91.5 fl (83.0-99.0); MEAN PLATELET VOLUME 10.4 fl (9.4-12.4); MONOCYTES ABSOLUTE AUTO 0.8 K/mm3 (0.0-0.8); MONOCYTES PERCENT AUTO 8.5 % (0.0-8.0); NEUTROPHILS ABSOLUTE AUTO 6.1 K/mm3 (1.8-7.7); NEUTROPHILS PERCENT AUTO 69.7 % (41.0-71.0); PLATELET COUNT,PLT 183 K/mm3 (150-400); RED BLOOD CELL COUNT 3.63 M/mm3 (4.52-5.90); WHITE BLOOD CELL COUNT,WBC 8.81 K/mm3 (3.9-11.3)
[2024-09-05 06:07] LABS: ANION GAP 8.4 (5-15); BUN/CREATININE RATIO 30.7 (14-18); C-REACTIVE PROTEIN 10.23 mg/dL (<0.30); CALCIUM 9.4 mg/dL (8.5-10.1); CREATININE 1.4 mg/dL (0.7-1.3); EST CRCL DRUG DOSING (CG) 43.45 mL/min; POTASSIUM,K 3.4 mEq/L (3.5-5.1)
[2024-09-05] MEDS: Bisacodyl 5 MG Tab PO PRN (06:28)
[2024-09-05] MEDS: Metoprolol Succinate 25 MG Tab.ER PO SCH (09:01)
[2024-09-05] MEDS: Triamcinolone Acetonide 0.5% Crm 15 GM Tube TOP SCH (09:02)
[2024-09-05] MEDS: Triamcinolone Acetonide 0.5% Oint 15 GM Tube TOP SCH (09:47)
[2024-09-06 05:43] LABS: BASOPHILS ABSOLUTE AUTO 0.1 K/mm3 (0.0-0.2); BASOPHILS PERCENT AUTO 0.6 % (0.0-1.0); EOSINOPHILS ABSOLUTE AUTO 0.3 K/mm3 (0.0-0.4); EOSINOPHILS PERCENT AUTO 4.1 % (0.0-6.0); HEMATOCRIT 35.6 % (42.0-52.0); HEMOGLOBIN 10.9 gm/dl (14.0-18.0); IMMATURE GRAN ABSOLUTE AUTO 0.28 K/mm3 (0.00-0.05); IMMATURE GRAN PERCENT AUTO 3.4 % (0.0-0.4); LYMPHOCYTES ABSOLUTE AUTO 1.5 K/mm3 (1.0-4.8); LYMPHOCYTES PERCENT AUTO 18.1 % (24.0-44.0); MEAN CORPUSCULAR HGB CONC 30.6 g/dl (32.0-36.0); MEAN CORPUSCULAR VOLUME 91.5 fl (83.0-99.0); MEAN PLATELET VOLUME 10.2 fl (9.4-12.4); MONOCYTES ABSOLUTE AUTO 0.7 K/mm3 (0.0-0.8); MONOCYTES PERCENT AUTO 8.6 % (0.0-8.0); NEUTROPHILS ABSOLUTE AUTO 5.3 K/mm3 (1.8-7.7); NEUTROPHILS PERCENT AUTO 65.2 % (41.0-71.0); PLATELET COUNT,PLT 201 K/mm3 (150-400); RED BLOOD CELL COUNT 3.89 M/mm3 (4.52-5.90); WHITE BLOOD CELL COUNT,WBC 8.12 K/mm3 (3.9-11.3)
[2024-09-06 06:12] LABS: ANION GAP 8.7 (5-15); BUN/CREATININE RATIO 31.9 (14-18); C-REACTIVE PROTEIN 6.09 mg/dL (<0.30); CALCIUM 9.6 mg/dL (8.5-10.1); CREATININE 1.6 mg/dL (0.7-1.3); EST CRCL DRUG DOSING (CG) 38.02 mL/min; POTASSIUM,K 3.7 mEq/L (3.5-5.1)
== END 2024-09-06 14:10 | DRG 871 ==
LOC: JD.ED 12:01 → JD.MS 15:09
PROVIDERS: ADMIT Student in an Organized Health Care Education/Training Program; ATTEND Family Medicine
PROC: 4A033R1 Measurement of Arterial Saturation, Peripheral, Percutaneous Approach (ICD-10-PCS; principal; 2024-09-01)
PROC: 3E03329 Introduction of Other Anti-infective into Peripheral Vein, Percutaneous Approach (ICD-10-PCS; 2024-09-01)
DX: A40.8 Other streptococcal sepsis (principal); I50.23 Acute on chronic systolic (congestive) heart failure; N28.9 Disorder of kidney and ureter, unspecified; I11.0 Hypertensive heart disease with heart failure; I50.9 Heart failure, unspecified; E11.9 Type 2 diabetes mellitus without complications; Z88.5 Allergy status to narcotic agent; J96.21 Acute and chronic respiratory failure with hypoxia; Z79.890 Hormone replacement therapy; F02.83 Dementia in other diseases classified elsewhere, unspecified severity, with mood disturbance; F02.84 Dementia in other diseases classified elsewhere, unspecified severity, with anxiety; I48.20 Chronic atrial fibrillation, unspecified; L03.115 Cellulitis of right lower limb; L03.116 Cellulitis of left lower limb; I13.0 Hypertensive heart and chronic kidney disease with heart failure and stage 1 through stage 4 chronic kidney disease, or unspecified chronic kidney disease; E87.4 Mixed disorder of acid-base balance; Z66 Do not resuscitate; H54.7 Unspecified visual loss; J44.9 Chronic obstructive pulmonary disease, unspecified; N40.0 Benign prostatic hyperplasia without lower urinary tract symptoms; G30.9 Alzheimer's disease, unspecified; E05.90 Thyrotoxicosis, unspecified without thyrotoxic crisis or storm; I49.3 Ventricular premature depolarization; F43.10 Post-traumatic stress disorder, unspecified; G89.29 Other chronic pain; E03.9 Hypothyroidism, unspecified; N18.32 Chronic kidney disease, stage 3b; I27.20 Pulmonary hypertension, unspecified; S31.30XA Unspecified open wound of scrotum and testes, initial encounter; E11.22 Type 2 diabetes mellitus with diabetic chronic kidney disease; I87.2 Venous insufficiency (chronic) (peripheral); E11.40 Type 2 diabetes mellitus with diabetic neuropathy, unspecified; M10.9 Gout, unspecified; Z79.899 Other long term (current) drug therapy; Z88.8 Allergy status to other drugs, medicaments and biological substances; Z79.51 Long term (current) use of inhaled steroids; Z79.01 Long term (current) use of anticoagulants; Z98.49 Cataract extraction status, unspecified eye; Z99.81 Dependence on supplemental oxygen; Z87.891 Personal history of nicotine dependence; X58.XXXA Exposure to other specified factors, initial encounter
CPT/HCPCS: 36415; 71045; 80053; 83605; 83880; 84484; 85007; 85027; 85610; 86140; 87040 ×2; 87077; 87154; 87186; 93005; 96365; 96375; 99285; A9270; J0696; J3372; 36600; 80048; 80202; 81001; 82803; 83735; 84100; 84443; 85025; 87641; 93306; 93970; 93970-26; 94760; 94761; 97110-GP; 97161-GP; 97530-GP; 97597-GP; J0692; J1940

== ENCOUNTER 2024-09-21 07:59 | Emergency (ER) | payer MEDICARE, MEDICAID ==
[2024-09-21 08:36] LABS: BASOPHILS ABSOLUTE AUTO 0.1 K/mm3 (0.0-0.2); BASOPHILS PERCENT AUTO 0.4 % (0.0-1.0); EOSINOPHILS PERCENT AUTO 0.1 % (0.0-6.0); HEMATOCRIT 22.4 % (42.0-52.0); IMMATURE GRAN ABSOLUTE AUTO 0.09 K/mm3 (0.00-0.05); IMMATURE GRAN PERCENT AUTO 0.8 % (0.0-0.4); LYMPHOCYTES ABSOLUTE AUTO 1.9 K/mm3 (1.0-4.8); LYMPHOCYTES PERCENT AUTO 16.7 % (24.0-44.0); MEAN CORPUSCULAR HEMOGLOBIN 28.9 pg (28.0-32.0); MEAN CORPUSCULAR HGB CONC 30.4 g/dl (32.0-36.0); MEAN PLATELET VOLUME 11.3 fl (9.4-12.4); MONOCYTES ABSOLUTE AUTO 0.7 K/mm3 (0.0-0.8); MONOCYTES PERCENT AUTO 6.6 % (0.0-8.0); NEUTROPHILS ABSOLUTE AUTO 8.4 K/mm3 (1.8-7.7); NEUTROPHILS PERCENT AUTO 75.4 % (41.0-71.0); PLATELET COUNT,PLT 201 K/mm3 (150-400); RED BLOOD CELL COUNT 2.35 M/mm3 (4.52-5.90); WHITE BLOOD CELL COUNT,WBC 11.19 K/mm3 (3.9-11.3)
[2024-09-21 08:38] LABS: HEMOGLOBIN 6.8 gm/dl (14.0-18.0); MEAN CORPUSCULAR VOLUME 95.3 fl (83.0-99.0)
[2024-09-21 09:12] LABS: INR 1.08; PROTHROMBIN TIME 11.4 SECONDS (9.7-12.0)
[2024-09-21 09:24] LABS: A/G RATIO 0.6 (1-2); ALBUMIN 2.6 g/dl (3.4-5.0); ANION GAP 10.1 (5-15); BILIRUBIN TOTAL 0.3 mg/dL (0.2-1.0); BUN/CREATININE RATIO 71.2 (14-18); CALCIUM 8.6 mg/dL (8.5-10.1); CREATININE 1.7 mg/dL (0.7-1.3); EST CRCL DRUG DOSING (CG) 35.19 mL/min; POTASSIUM,K 4.1 mEq/L (3.5-5.1); PROTEIN TOTAL,TP 6.9 g/dl (6.4-8.2)
[2024-09-21] MEDS: Furosemide 40 MG/4 ML VIAL IVPUSH ONE (12:20)
[2024-09-21] MEDS: Sodium Chloride 0.9% 250 ML ONE (16:14)
[2024-09-21] MEDS: Pantoprazole 40 MG Vial IVPUSH ONE (16:25)
== END 2024-09-21 18:20 ==
LOC: JD.ED 07:59
DX: K92.2 Gastrointestinal hemorrhage, unspecified (principal); I25.10 Atherosclerotic heart disease of native coronary artery without angina pectoris; I13.0 Hypertensive heart and chronic kidney disease with heart failure and stage 1 through stage 4 chronic kidney disease, or unspecified chronic kidney disease; I50.9 Heart failure, unspecified; N18.9 Chronic kidney disease, unspecified; I48.91 Unspecified atrial fibrillation; J44.9 Chronic obstructive pulmonary disease, unspecified; G30.9 Alzheimer's disease, unspecified; Z79.01 Long term (current) use of anticoagulants; Z88.8 Allergy status to other drugs, medicaments and biological substances; Z88.5 Allergy status to narcotic agent; Z79.890 Hormone replacement therapy; Z79.899 Other long term (current) drug therapy; Z79.51 Long term (current) use of inhaled steroids
CPT/HCPCS: 36415; 36430; 71045; 80053; 83690; 83735; 83880; 84484; 85025; 85610; 87428; 93005; 96374; 96375; 99285; J1940; J2470; P9016; 86850; 86900; 86901; 86922; 93010